=== PATIENT | female | born 1940 | race Caucasian/White ===

== ENCOUNTER → 2017-09-09 | Outpatient (CLI) | payer MEDICARE, OTHER ==
[~2017-09-09] MED LIST: ACIDOPHILUS1 EAC4 PO; ADULT LOW DOSE81 MG PO; ALDACTONE25 MG PO; ASPIRIN81 M2 PO; BACITRACIN 500U30 G1 TOP; CALCIUM 500 +1 EAC5 PO; CALCIUM 600 +1 EAC1 PO; CARVEDILOL12.5 MG PO; CELEXA20 MG PO; CHOLESTYRAMINE R5 GM PO; COLACE100 MG PO; COREG3.125 MG PO; EFFER-K 10 MEQ10 ME1 PO; ENOXAPARIN40 MG/0.1 SUBQ; ENTRESTO 97 MG1 EACH BUCCAL; ENTRESTO 97 MG1 EACH PO; FIRVANQ50 MG/1 ML PO; HYDROCODON-ACE1 EAC7 PO; IBUPROFEN 200200 M1 PO; KEFLEX500 M1 PO; KLOR-CON 1010 MEQ PO; LASIX 40 MG TAB40 M2 PO; LIDOPATCH1 EACH TOP; LISINOPRIL20 MG PO; MACROBID 100 M100 M1 PO; METFORMIN HCL500 MG PO; MOBIC15 MG PO; NORCO 10-325 T1 EACH PO; NOVOLOG100 UNIT/1 SUBQ; PANTOPRAZOLE SO40 M1 PO; PEPCID20 MG PO; ROPINIROLE HCL2 MG PO; TRAMADOL 50 MG50 MG PO; ZESTRIL10 MG PO; ZYRTEC-D TABLE1 EAC1 PO
[2017-09-09 11:15] LABS: CALCIUM 9.2 mg/dL (8.5-10.1); CREATININE 0.7 mg/dL (0.6-1.3); POTASSIUM 3.7 mmol/L (3.5-5.1)
== END ==
LOC: M.LAB 10:41
PROVIDERS: Internal Medicine Cardiovascular Disease
DX: I50.22 Chronic systolic (congestive) heart failure (principal); E78.5 Hyperlipidemia, unspecified; N18.9 Chronic kidney disease, unspecified

== ENCOUNTER → 2017-10-07 | Outpatient (CLI) | payer MEDICARE, OTHER ==
[2017-10-07 11:16] LABS: CALCIUM 8.9 mg/dL (8.5-10.1); CREATININE 1.2 mg/dL (0.6-1.3); POTASSIUM 3.9 mmol/L (3.5-5.1)
== END ==
LOC: M.LAB 10:39
PROVIDERS: Internal Medicine Cardiovascular Disease
DX: I50.22 Chronic systolic (congestive) heart failure (principal); N18.9 Chronic kidney disease, unspecified; E78.5 Hyperlipidemia, unspecified

== ENCOUNTER 2017-10-09 15:46 | Observation (INO) | payer MEDICARE, OTHER ==
[~2017-10-09] VITALS: Ht 157.5 cm; Wt 63.5 kg
[~2017-10-09 15:46] MED LIST changes: -ACIDOPHILUS1 EAC4 PO; -ADULT LOW DOSE81 MG PO; -CALCIUM 500 +1 EAC5 PO; -EFFER-K 10 MEQ10 ME1 PO; -ENTRESTO 97 MG1 EACH BUCCAL; -ENTRESTO 97 MG1 EACH PO; -FIRVANQ50 MG/1 ML PO; -HYDROCODON-ACE1 EAC7 PO; -KEFLEX500 M1 PO; -LIDOPATCH1 EACH TOP; -MACROBID 100 M100 M1 PO
[2017-10-09 15:49] VITALS: BP 177/72
[2017-10-09 17:01] LABS: ABSOLUTE EOSINOPHILS 0.2 thou/uL (0.0-0.7); ABSOLUTE LYMPHOCYTES 1.3 thou/uL (0.8-5.3); ABSOLUTE MONOCYTES 0.5 thou/uL (0.0-1.2); ABSOLUTE NEUTROPHILS 2.6 thou/uL (1.6-8.1); BASOPHILS 0.5 %; EOSINOPHILS 4.3 %; HEMATOCRIT 36.9 % (37.0-47.0); HEMOGLOBIN 12.3 gm/dL (12.0-15.0); LYMPHOCYTES 27.5 %; MCH 32.5 pg (26.0-34.0); MCHC 33.5 g/dL (28.0-37.0); MCV 97.1 fL (80.0-100.0); MONOCYTES 11.6 %; MPV 7.6 fl. (7.2-11.1); NUCLEATED RBCS 0 /100WBC; PLATELET COUNT* 165 thou/uL (150-400); POLYS 56.1 %; RDW-CV 12.6 % (10.5-14.5); WBC 4.6 thou/uL (4.0-11.0)
[2017-10-09 17:11] LABS: INR 1.1; PROTIME 10.3 Seconds (9.20-11.50)
[2017-10-09 17:12] LABS: ANION GAP 7 mmol/L (7-16); BUN 30 mg/dL (7-18); CALCIUM 9.3 mg/dL (8.5-10.1); CHLORIDE 103 mmol/L (98-107); CO2 31 mmol/L (21-32); CREATININE 1.1 mg/dL (0.6-1.3); GLUCOSE 121 mg/dL (70-99); POTASSIUM 4.1 mmol/L (3.5-5.1); SODIUM 141 mmol/L (136-145)
[2017-10-09 17:19] LABS: ALBUMIN 3.7 g/dL (3.4-5.0); ALKALINE PHOSPHATASE 102 U/L (46-116); SGOT 114 U/L (15-37); SGPT 53 U/L (30-65); TOTAL BILIRUBIN 0.9 mg/dL (<0.1-1.0); TOTAL PROTEIN 7.5 g/dL (6.4-8.2); TROPONIN-I LEVEL <0.06 ng/mL (<0.06)
[2017-10-09] MEDS ORDERED: ENTRESTO 97 MG1 EACH PO (17:42)
[2017-10-09 18:33] VITALS: BP 89/49
[2017-10-09 19:52] VITALS: BP 116/58
[2017-10-10] VITALS: BP 95/65
--- NOTE | 2017-10-10 02:39 | NUR ---
ASSUMED CARE OF PT AT 1900. PT IS ALERT AND ORIENTED. VSS. PERRLA. NIH IS 0. PT IS IN SINUS RYTHM ON THE TELEMETRY. PT IS RESTING COMFORTABLY IN BED. RESPIRATIONS ARE EVEN AND NONLABORED. WILL CONTINUE TO MONITOR PT.
[2017-10-10 04:32] VITALS: BP 122/62
[2017-10-10 05:25] LABS: ABSOLUTE EOSINOPHILS 0.2 thou/uL (0.0-0.7); ABSOLUTE MONOCYTES 0.4 thou/uL (0.0-1.2); ABSOLUTE NEUTROPHILS 1.6 thou/uL (1.6-8.1); BASOPHILS 0.6 %; EOSINOPHILS 5.4 %; HEMATOCRIT 32.9 % (37.0-47.0); HEMOGLOBIN 11.3 gm/dL (12.0-15.0); LYMPHOCYTES 31.4 %; MCH 33.3 pg (26.0-34.0); MCHC 34.3 g/dL (28.0-37.0); MCV 97.1 fL (80.0-100.0); MONOCYTES 12.8 %; MPV 7.7 fl. (7.2-11.1); NUCLEATED RBCS 0 /100WBC; PLATELET COUNT* 126 thou/uL (150-400); POLYS 49.8 %; RBC 3.39 mil/uL (4.20-5.00); RDW-CV 12.4 % (10.5-14.5); WBC 3.3 thou/uL (4.0-11.0)
[2017-10-10 05:38] LABS: CALCIUM 9.2 mg/dL (8.5-10.1)
[2017-10-10 06:01] LABS: CHOLESTEROL 133 mg/dL (<200); HDL CHOLESTEROL 32 mg/dL (>40); LDL CHOLESTEROL 70 mg/dL (<100); TC:HDL 4.2 Ratio (Not establshd); TRIGLYCERIDE 156 mg/dL (<150); VLDL 31 mg/dL (<40)
[2017-10-10 06:03] LABS: SERUM ASSESSMENT CLEAR
[2017-10-10 08:00] VITALS: BP 95/75
[2017-10-10] MEDS ORDERED: ENTRESTO 97 MG1 EACH BUCCAL (09:02)
[2017-10-10] MEDS ORDERED: LASIX 40 MG TAB40 M2 PO (09:03)
[2017-10-10] MEDS ORDERED: ALDACTONE25 MG PO (09:03)
--- NOTE | 2017-10-10 09:37 | NUR ---
VSS, ASSUMED CARE IN THE AM, ASSESSMENT PERFORMED AND CHARTED, FALL PRECAUTIONS IN PLACE AND CALL LIGHT IN REACH. PT IS A&O4 AND UP WITH STAND BY, PT IS TRACING SR ON THE MONITOR HER GOAL IS TO WORK WITH PT/OT AND SIT UP IN CHAIR, PT MIGHT D/C ON DAY OF CARE.
--- NOTE | 2017-10-10 11:57 | EKG ---
[place] [address] ELECTROCARDIOGRAM REPORT Name: ARACELI TOMPKINS Room: [address] ADM IN [facility]#: [id number] Admission: 10/09/17 Attend Phys: Jonathan Ma MD Discharge: Date of : 44 Report #: [id number] THIS REPORT FOR: //name// [facility] ED Test Date: 2017-10-09 Test Time: 16:52:06 Pat Name: ARACELI TOMPKINS Department: Room: [facility] Gender: F Tank Welder: : 1940 Requested By: Calvin Ferrer Order Number: [id number] MD: Ernie Houser Measurements Intervals [place] Rate: 77 P: 37 GA: 167 QRS: -42 QRSD: 124 T: 15 QT: 422 QTc: 478 Interpretive Statements Sinus rhythm lvh with repolarization left axis Compared to ECG 05/04/2017 19:43:05 Sinus tachycardia no longer present Electronically Signed On 10-10-2017 11:57:51 SAMPLE ROOM SUPERVISOR by Ernie Houser [email or web address] <ELECTRONICALLY SIGNED> By: Ernie Houser MD, [facility] 10/10/17 1157 1652 1652 Ernie Houser MD, [facility] /EPI
[2017-10-10 12:52] VITALS: BP 95/75
[2017-10-10 16:00] VITALS: BP 121/82
--- NOTE | 2017-10-10 18:11 | NUR ---
VSS, PT IS SLEEPING AND IS HARD TO WAKE, PT IS ON 5L NC AND HAS FALL PRECAUTIONS IN PLACE AND CALL LIGHT IN REACH, HOURLY ROUNDS COMPLETED, PT HAS NOT MET GOAL, PT WILL NOT WAKE UP FOR PT/OT, PT IS TRACING V-PACED ON THE MONITOR, WILL FOLLOW WITH PLAN OF CARE.
[2017-10-10 22:11] LABS: GLYCOHEMOGLOBIN (HGB A1C) 6.7 % (4.8-5.6)
[2017-12-18] MEDS ORDERED: KEFLEX500 M1 PO (16:15)
== END 2017-10-10 19:06 | disposition home or self-care (01) ==
LOC: M.ERS 15:46 → M.2W 16:53 → M.TBA-ER 16:53 → M.2W 16:53
PROVIDERS: Emergency Medicine; ADMIT Internal Medicine
DX: M62.81 Muscle weakness (generalized) (principal); M47.9 Spondylosis, unspecified; M48.061 Spinal stenosis, lumbar region without neurogenic claudication; E11.22 Type 2 diabetes mellitus with diabetic chronic kidney disease; I13.0 Hypertensive heart and chronic kidney disease with heart failure and stage 1 through stage 4 chronic kidney disease, or unspecified chronic kidney disease; N18.9 Chronic kidney disease, unspecified; I50.9 Heart failure, unspecified; I42.9 Cardiomyopathy, unspecified; G25.81 Restless legs syndrome; Z86.73 Personal history of transient ischemic attack (TIA), and cerebral infarction without residual deficits; Z85.3 Personal history of malignant neoplasm of breast

== ENCOUNTER → 2017-10-24 | Outpatient (CLI) | payer MEDICARE, OTHER ==
[~2017-10-24] MED LIST changes: +ACIDOPHILUS1 EAC4 PO; +ADULT LOW DOSE81 MG PO; +CALCIUM 500 +1 EAC5 PO; +EFFER-K 10 MEQ10 ME1 PO; +ENTRESTO 97 MG1 EACH BUCCAL; +ENTRESTO 97 MG1 EACH PO; +FIRVANQ50 MG/1 ML PO; +HYDROCODON-ACE1 EAC7 PO; +KEFLEX500 M1 PO; +LIDOPATCH1 EACH TOP; +MACROBID 100 M100 M1 PO
[2017-10-24 11:43] LABS: CALCIUM 9.2 mg/dL (8.5-10.1); CREATININE 0.7 mg/dL (0.6-1.3); POTASSIUM 4.1 mmol/L (3.5-5.1)
== END ==
LOC: M.LAB 11:22
PROVIDERS: Nurse Practitioner
DX: I13.0 Hypertensive heart and chronic kidney disease with heart failure and stage 1 through stage 4 chronic kidney disease, or unspecified chronic kidney disease (principal); E11.22 Type 2 diabetes mellitus with diabetic chronic kidney disease; I50.22 Chronic systolic (congestive) heart failure; N18.9 Chronic kidney disease, unspecified; G45.9 Transient cerebral ischemic attack, unspecified; E87.5 Hyperkalemia; J96.01 Acute respiratory failure with hypoxia; E44.1 Mild protein-calorie malnutrition; Z90.11 Acquired absence of right breast and nipple; Z90.49 Acquired absence of other specified parts of digestive tract; Z90.710 Acquired absence of both cervix and uterus

== ENCOUNTER → 2017-12-18 | Outpatient (CLI) | payer MEDICARE, OTHER ==
[~2017-12-18] VITALS: Ht 154.9 cm; Wt 57.6 kg
[2017-12-18 10:03] VITALS: BP 110/51
[2017-12-18 10:15] LABS: ABSOLUTE EOSINOPHILS 0.3 thou/uL (0.0-0.7); ABSOLUTE LYMPHOCYTES 0.9 thou/uL (0.8-5.3); ABSOLUTE MONOCYTES 0.6 thou/uL (0.0-1.2); ABSOLUTE NEUTROPHILS 2.7 thou/uL (1.6-8.1); BASOPHILS 0.7 %; HEMATOCRIT 36.5 % (37.0-47.0); HEMOGLOBIN 12.5 gm/dL (12.0-15.0); LYMPHOCYTES 19.3 %; MCHC 34.3 g/dL (28.0-37.0); MCV 93.2 fL (80.0-100.0); MONOCYTES 12.4 %; MPV 7.5 fl. (7.2-11.1); NUCLEATED RBCS 0 /100WBC; PLATELET COUNT* 146 thou/uL (150-400); POLYS 61.6 %; RBC 3.91 mil/uL (4.20-5.00); RDW-CV 13.2 % (10.5-14.5); WBC 4.5 thou/uL (4.0-11.0)
[2017-12-18 10:24] LABS: CALCIUM 9.2 mg/dL (8.5-10.1); CREATININE 0.9 mg/dL (0.6-1.3); POTASSIUM 4.3 mmol/L (3.5-5.1)
[2017-12-18 10:26] LABS: APTT 24.3 Seconds (25.0-31.3); PROTIME 9.7 Seconds (9.20-11.50)
[2017-12-18 10:28] LABS: ALBUMIN 3.2 g/dL (3.4-5.0); TOTAL PROTEIN 6.7 g/dL (6.4-8.2)
[2017-12-18 15:38] VITALS: BP 117/66
--- NOTE | 2018-01-07 18:31 | CARD ---
[address] [address] CARDIAC CATH REPORT Name: ARACELI TOMPKINS [id number] Admission: 12/18/17 Attend Phys: Harshil Shukla MD Discharge: Date of : 44 Report #: [id number] THIS REPORT FOR: //name// APPROVED REPORT Study performed: 12/18/2017 10:40:16 Patient Status: Out-Patient Room #: Exam: insertion of a dual-chamber ICD Indications: nonischemic cardiomyopathy Patient Info Last EF%: 35% Date: NYHA Heart Class: II Reason for implant: Primary prevention Intraoperative Conscious Sedation Sedation start time: 1228 Case end Time: 1422 Fentanyl 50.0 mcg Versed 2.0 mg Implanted Devices: Biotronik Iperia 7 DRT DF 4 pro-MRI, model number 603925, serial #[id number] Biotronik Solia S 53, model #058749, serial #[id number] Biotronik Plexa ProMRI S 65, model #683992, serial #[id number] Procedure After informed consent was obtained the patient was brought to the cardiac catheterization lab. The area of the left shoulder was prepped and draped in sterile fashion. Local anesthesia was achieved with 1% lidocaine. Next after an initial incision was made a device pocket was formed over the pectoralis muscle using (coronary and blunt dissection. Next the right vein was accessed using a micropuncture kit. Attempts to advance a safety J wire were unsuccessful. A peripheral injection of IV contrast showed the left subclavian vein to be occluded. The pocket was flushed with antibiotic solution. The deep tissues were closed with interrupted stitches of 2-0 Vicryl. The skin incision was then closed with a single subcuticular stitch of 4-0 Vicryl. Several Steri-Strips were placed across the incision. A sterile Telfa dressing was then covered with a Tegaderm. The area of the right shoulder was prepped and draped in sterile fashion. Local anesthesia was achieved with 1% [place] [address] CARDIAC CATH REPORT Name: TOMPKINSARACELI Room: [facility]#: [id number] Admission: 12/18/17 Attend Phys: Harshil Shukla MD Discharge: Date of : 44 Report #: [id number] subclavian vein was then accessed using a micropuncture kit. Ultimately a safety J guidewire was advanced to the area of the right atrium under fluoroscopic guidance. The guidewire was then externally fixed using a Doris forcep. The micropuncture kit was utilized a second time to access the right subclavian vein. A second safety J guidewire was advanced to the area of the right atrium under fluoroscopic guidance. Next a 7 [place] tear-away introducer was advanced over the guidewire. The dilator and guidewire were removed and an RV pacing ICD lead advanced to the right ventricular apex under fluoroscopic guidance. The tear-away introducer was then removed. The lead was actively fixed. Thresholds were checked and deemed to be satisfactory. Next a 7 [place] tear-away introducer was advanced over the remaining guidewire. The dilator and guidewire were removed as an atrial lead was advanced to a secure position within the right atrial appendage. The tear-away introducer was then removed. The lead was actively fixed. Thresholds were checked and deemed to be satisfactory. Next after adequate slack was assured and the atrial and ventricular leads. The leads were secured within the device pocket using the designated cuffs and interrupted stitches of 2-0 silk suture. The device pocket was flushed with antibiotic solution. Next a dual-chamber pacing ICD generator was attached to the atrial and pacing ICD RV lead. The generator and redundant lead were then placed within the device pocket. The deep tissues were then closed using interrupted stitches of 2-0 Vicryl. The skin incision was then closed with a single subcuticular stitch of 4-0 Vicryl. Several Steri-Strips were placed across the incision. A sterile Telfa dressing was then covered with a Tegaderm. Patient tolerated procedure well without complication. Complications The patient tolerated the procedure well and there were no complications associated with the procedure. Findings Specimens Removed: No Estimated Blood Loss: 0 mL The sensed P wave was 4.0 mV. The sensed R-wave was 23.10 mV. The right atrial pacing impedance was 565 ohms. The right ventricular lead pacing and impedance was 550 ohms. The right atrial pacing threshold was 0.8 V at 0.40 ms. The right ventricular pacing threshold was 0.7 V at 0.40 ms. The pacing mode was DDD with a lower rate of 50 bpm and an upper tracking rate of 130 bpm. The VF detection rate was 250 bpm. Slow VT detection rate was 154 [facility] [address] [place] [address] CARDIAC CATH REPORT Name: ARACELI TOMPKINS Room: [facility]#: [id number] Admission: 12/18/17 Attend Phys: Harshil Shukla MD Discharge: Date of : 44 Report #: [id number]. The fast VT detection rate was 176 bpm. VT therapy was anti-tachycardia pacing times one followed by 40 J shock 8. The slow VT therapy was monitor only. The fast VT therapy was and I tach pacing 6 followed by 40 J shock times 8. Conclusion 1. Nonischemic cardiomyopathy. 2. Successful implantation of a dual-chamber pacing ICD for primary prevention. Recommendations 1. Follow-up site check in one week. 2. Follow-up in office interrogation as scheduled. <ELECTRONICALLY SIGNED> By: Harshil Shukla MD, FACC 01/07/181830 30 30Michaejoseph Shukla MD, FACC /INF
== END | disposition home or self-care (01) ==
LOC: M.CL 09:36
PROVIDERS: Internal Medicine Cardiovascular Disease
DX: I42.8 Other cardiomyopathies (principal); B19.20 Unspecified viral hepatitis C without hepatic coma; Z85.3 Personal history of malignant neoplasm of breast; Z90.49 Acquired absence of other specified parts of digestive tract; Z98.890 Other specified postprocedural states; Z90.710 Acquired absence of both cervix and uterus; I50.9 Heart failure, unspecified

== ENCOUNTER → 2018-03-12 | Outpatient (CLI) | payer MEDICARE, OTHER | LOC: M.ULTRA 12:38 | DX: M71.21 Synovial cyst of popliteal space [Baker], right knee (principal); M79.89 Other specified soft tissue disorders; I50.22 Chronic systolic (congestive) heart failure; I42.8 Other cardiomyopathies; E78.5 Hyperlipidemia, unspecified; E11.9 Type 2 diabetes mellitus without complications; M79.604 Pain in right leg ==

== ENCOUNTER → 2018-03-31 | Outpatient (CLI) | payer MEDICARE, OTHER | LOC: M.RAD 14:44 | DX: M47.816 Spondylosis without myelopathy or radiculopathy, lumbar region (principal); M47.814 Spondylosis without myelopathy or radiculopathy, thoracic region; M16.0 Bilateral primary osteoarthritis of hip; M85.88 Other specified disorders of bone density and structure, other site ==

== ENCOUNTER 2018-04-06 16:18 | Inpatient (IN) | payer MEDICARE, OTHER ==
[~2018-04-06] VITALS: Ht 165.1 cm; Wt 62.0 kg
[~2018-04-06 16:18] MED LIST changes: -ACIDOPHILUS1 EAC4 PO; -ADULT LOW DOSE81 MG PO; -CALCIUM 500 +1 EAC5 PO; -EFFER-K 10 MEQ10 ME1 PO; -FIRVANQ50 MG/1 ML PO; -HYDROCODON-ACE1 EAC7 PO; -LIDOPATCH1 EACH TOP; -MACROBID 100 M100 M1 PO
[2018-04-06 16:19] VITALS: BP 96/70
[2018-04-06] MEDS ORDERED: LASIX 40 MG TAB40 M2 PO (16:40)
[2018-04-06] MEDS ORDERED: EFFER-K 10 MEQ10 ME1 PO (16:41)
[2018-04-06] MEDS ORDERED: CALCIUM 500 +1 EAC5 PO (16:42)
[2018-04-06 16:43] LABS: URINE BLOOD 1+ (Negative); URINE CLARITY CLOUDY; URINE COLOR YELLOW; URINE GLUCOSE-RANDOM TRACE (Negative); URINE KETONES NEGATIVE (Negative); URINE NITRITE-REFLEX NEGATIVE (Negative); URINE PROTEIN 2+ (Negative); URINE SPECIFIC GRAVITY >= 1.030 (1.005-1.030); URINE UROBILINOGEN >= 8.0 E.U./dl (0.2-1.0)
[2018-04-06] MEDS ORDERED: HYDROCODON-ACE1 EAC7 PO (16:45)
[2018-04-06 16:50] LABS: ICTOTEST (BILI CONFIRMATORY) Positive (Negative); URINE BILIRUBIN 2+ (Negative); URINE LEUKOCYTES-REFLEX 2+ (Negative)
[2018-04-06 16:51] LABS: HYALINE CASTS 0-3 Few /LPF (None Seen); SQUAMOUS >10 Many /LPF (0-3)
[2018-04-06 16:52] LABS: BACTERIA-REFLEX >30 Many /HPF (None Seen); MUCUS None Seen strn/LPF (None Seen); URINE RBC 0-2 Rare /HPF (0-2); URINE WBC-REFLEX >25 Many /HPF (0-5); WBC CLUMPS Few (None Seen)
[2018-04-06 16:53] LABS: CRYSTALS None Seen /LPF (None Seen)
[2018-04-06 17:14] LABS: HEMATOCRIT 35.8 % (37.0-47.0); HEMOGLOBIN 12.2 gm/dL (12.0-15.0); MCH 30.8 pg (26.0-34.0); MCV 90.5 fL (80.0-100.0); MPV 9.6 fl. (7.2-11.1); NUCLEATED RBCS 0 /100WBC; PLATELET COUNT* 56 thou/uL (150-400); RBC 3.96 mil/uL (4.20-5.00); RDW-CV 13.5 % (10.5-14.5)
[2018-04-06 17:22] LABS: ANION GAP 10 mmol/L (7-16); BUN 27 mg/dL (7-18); CALCIUM 8.6 mg/dL (8.5-10.1); CHLORIDE 98 mmol/L (98-107); CO2 27 mmol/L (21-32); CREATININE 1.2 mg/dL (0.6-1.3); GLUCOSE 147 mg/dL (70-99); POTASSIUM 3.1 mmol/L (3.5-5.1); SODIUM 135 mmol/L (136-145)
[2018-04-06 17:36] LABS: ALBUMIN 2.7 g/dL (3.4-5.0); ALKALINE PHOSPHATASE 160 U/L (46-116); SGOT 75 U/L (15-37); SGPT 39 U/L (30-65); TOTAL BILIRUBIN 2.7 mg/dL (<0.1-1.0); TOTAL PROTEIN 6.3 g/dL (6.4-8.2); TROPONIN-I LEVEL <0.06 ng/mL (<0.06)
[2018-04-06 17:45] LABS: ABSOLUTE LYMPHOCYTES 0.3 thou/uL (0.8-5.3); ABSOLUTE MONOCYTES 0.1 thou/uL (0.0-1.2); ABSOLUTE NEUTROPHILS 5.6 thou/uL (1.6-8.1)
[2018-04-06 17:46] LABS: OVALOCYTES Occasional; PLATELET ESTIMATE DECREASED
[2018-04-06 19:50] VITALS: BP 99/52
[2018-04-06 20:00] VITALS: BP 147/70
[2018-04-07] VITALS: BP 118/63
[2018-04-07 04:00] VITALS: BP 100/51
[2018-04-07 08:00] VITALS: BP 104/57
[2018-04-07 13:54] VITALS: BP 127/59
[2018-04-07 16:51] VITALS: BP 104/59
--- NOTE | 2018-04-07 17:25 | EKG ---
[place] [address] ELECTROCARDIOGRAM REPORT Name: ARACELI TOMPKINS Room: [address] ADM IN .R.#: [id number] Admission: 04/06/18 Attend Phys: Selene Larose MD Discharge: Date of : 44 Report #: [id number] THIS REPORT FOR: //name// [facility] ED Test Date: 2018-04-06 Test Time: 16:27:50 Pat Name: ARACELI TOMPKINS Department: Room: [facility] Gender: F Flow Machine Operator: Yordan SHEETS : 1940 Requested By: Celia Ahumada Order Number: [id number] MD: Harshil Shukla Measurements Intervals [place] Rate: 78 P: 15 UT: 147 QRS: -45 QRSD: 126 T: -5 QT: 404 QTc: 461 Interpretive Statements Sinus rhythm Left bundle branch block Compared to ECG 10/09/2017 16:52:06 Left bundle-branch block now present Left ventricular hypertrophy no longer present Electronically Signed On 04-07-2018 17:25:15 CDT by Harshil Shukla [email or web address] <ELECTRONICALLY SIGNED> By: Harshil Shukla MD, FACC 04/07/18 1725 1627 1627 Harshil Shukla MD, [facility] /EPI
[2018-04-07 20:00] VITALS: BP 122/67
[2018-04-08] VITALS: BP 168/73
[2018-04-08 04:00] VITALS: BP 109/38
[2018-04-08 05:44] LABS: HEMATOCRIT 32.6 % (37.0-47.0); MCH 30.7 pg (26.0-34.0); MCHC 33.7 g/dL (28.0-37.0); MCV 91.2 fL (80.0-100.0); MPV 9.8 fl. (7.2-11.1); RBC 3.57 mil/uL (4.20-5.00); RDW-CV 13.4 % (10.5-14.5); WBC 6.2 thou/uL (4.0-11.0)
[2018-04-08 06:35] LABS: CALCIUM 8.2 mg/dL (8.5-10.1); CREATININE 0.9 mg/dL (0.6-1.3); MAGNESIUM 1.6 mg/dL (1.8-2.4)
[2018-04-08 08:00] VITALS: BP 100/51
[2018-04-08 12:18] LABS: HEMATOCRIT 31.7 % (37.0-47.0); HEMOGLOBIN 10.7 gm/dL (12.0-15.0); MCH 30.5 pg (26.0-34.0); MCHC 33.9 g/dL (28.0-37.0); MPV 9.6 fl. (7.2-11.1); RBC 3.52 mil/uL (4.20-5.00); RDW-CV 13.7 % (10.5-14.5); WBC 8.2 thou/uL (4.0-11.0)
[2018-04-08 15:14] VITALS: BP 106/54
[2018-04-08 19:50] VITALS: BP 112/65
[2018-04-09 05:17] LABS: HEMATOCRIT 31.4 % (37.0-47.0); HEMOGLOBIN 10.5 gm/dL (12.0-15.0); MCH 30.2 pg (26.0-34.0); MCHC 33.4 g/dL (28.0-37.0); MCV 90.4 fL (80.0-100.0); MPV 10.5 fl. (7.2-11.1); RBC 3.48 mil/uL (4.20-5.00); RDW-CV 13.5 % (10.5-14.5); WBC 8.1 thou/uL (4.0-11.0)
[2018-04-09 05:40] LABS: ALBUMIN 2.3 g/dL (3.4-5.0); CALCIUM 8.1 mg/dL (8.5-10.1); CREATININE 0.7 mg/dL (0.6-1.3); MAGNESIUM 1.8 mg/dL (1.8-2.4); TOTAL BILIRUBIN 1.1 mg/dL (<0.1-1.0); TOTAL PROTEIN 5.1 g/dL (6.4-8.2)
[2018-04-09 07:45] VITALS: BP 116/64
[2018-04-09 10:04] LABS: URINE BILIRUBIN NEGATIVE (Negative); URINE BLOOD NEGATIVE (Negative); URINE CLARITY CLEAR; URINE COLOR YELLOW; URINE GLUCOSE-RANDOM 2+ (Negative); URINE KETONES 1+ (Negative); URINE LEUKOCYTES-REFLEX NEGATIVE (Negative); URINE NITRITE-REFLEX NEGATIVE (Negative); URINE PROTEIN TRACE (Negative); URINE SPECIFIC GRAVITY 1.025 (1.005-1.030); URINE UROBILINOGEN 0.2 E.U./dl (0.2-1.0)
[2018-04-09 16:34] VITALS: BP 130/67
[2018-04-09 21:00] VITALS: BP 142/88
[2018-04-10 04:32] LABS: HEMATOCRIT 30.6 % (37.0-47.0); HEMOGLOBIN 10.2 gm/dL (12.0-15.0); MCH 30.1 pg (26.0-34.0); MCHC 33.4 g/dL (28.0-37.0); MCV 90.3 fL (80.0-100.0); MPV 9.3 fl. (7.2-11.1); NUCLEATED RBCS 0 /100WBC; RBC 3.39 mil/uL (4.20-5.00); RDW-CV 13.7 % (10.5-14.5); WBC 7.7 thou/uL (4.0-11.0)
[2018-04-10 04:40] LABS: PLATELET COUNT* 45 thou/uL (150-400)
[2018-04-10 04:44] LABS: CALCIUM 7.8 mg/dL (8.5-10.1); CREATININE 0.6 mg/dL (0.6-1.3); MAGNESIUM 1.5 mg/dL (1.8-2.4); POTASSIUM 3.5 mmol/L (3.5-5.1)
[2018-04-10 07:22] LABS: ABSOLUTE EOSINOPHILS 0.2 thou/uL (0.0-0.7); ABSOLUTE LYMPHOCYTES 0.8 thou/uL (0.8-5.3); ABSOLUTE NEUTROPHILS 6.8 thou/uL (1.6-8.1); PLATELET ESTIMATE DECREASED
[2018-04-10 08:00] VITALS: BP 141/92
[2018-04-10 20:00] VITALS: BP 120/68
[2018-04-11] VITALS: BP 134/67
[2018-04-11 04:44] LABS: HEMATOCRIT 28.6 % (37.0-47.0); HEMOGLOBIN 9.7 gm/dL (12.0-15.0); MCH 30.2 pg (26.0-34.0); MCHC 33.9 g/dL (28.0-37.0); MCV 89.1 fL (80.0-100.0); MPV 9.1 fl. (7.2-11.1); RBC 3.21 mil/uL (4.20-5.00); RDW-CV 13.5 % (10.5-14.5); WBC 6.2 thou/uL (4.0-11.0)
[2018-04-11 05:26] LABS: CREATININE 0.6 mg/dL (0.6-1.3); MAGNESIUM 1.6 mg/dL (1.8-2.4); POTASSIUM 3.4 mmol/L (3.5-5.1)
[2018-04-11 08:00] VITALS: BP 146/72
[2018-04-11 15:44] VITALS: BP 143/69
[2018-04-11 16:43] LABS: MAGNESIUM 1.7 mg/dL (1.8-2.4); POTASSIUM 4.9 mmol/L (3.5-5.1)
[2018-04-11 22:00] VITALS: BP 135/85
[2018-04-12 08:00] VITALS: BP 152/91
[2018-04-12 16:05] VITALS: BP 140/80
[2018-04-12 19:30] VITALS: BP 143/82
[2018-04-13 05:29] LABS: HEMATOCRIT 29.8 % (37.0-47.0); MCH 30.5 pg (26.0-34.0); MCHC 33.6 g/dL (28.0-37.0); MCV 90.7 fL (80.0-100.0); MPV 9.8 fl. (7.2-11.1); RBC 3.28 mil/uL (4.20-5.00); RDW-CV 13.7 % (10.5-14.5); WBC 7.9 thou/uL (4.0-11.0)
[2018-04-13 05:35] LABS: INR 1.1; PROTIME 10.6 Seconds (9.20-11.50)
[2018-04-13 05:44] LABS: ALBUMIN 2.1 g/dL (3.4-5.0); CALCIUM 7.9 mg/dL (8.5-10.1); CREATININE 0.6 mg/dL (0.6-1.3); POTASSIUM 4.5 mmol/L (3.5-5.1); TOTAL BILIRUBIN 1.1 mg/dL (<0.1-1.0); TOTAL PROTEIN 5.1 g/dL (6.4-8.2)
[2018-04-13 08:36] VITALS: BP 151/93
[2018-04-13 16:26] VITALS: BP 140/100
[2018-04-13 21:00] VITALS: BP 108/60
[2018-04-13 21:44] LABS: URINE BILIRUBIN NEGATIVE (Negative); URINE BLOOD NEGATIVE (Negative); URINE CLARITY CLEAR; URINE COLOR YELLOW; URINE GLUCOSE-RANDOM 2+ (Negative); URINE KETONES 1+ (Negative); URINE LEUKOCYTES-REFLEX NEGATIVE (Negative); URINE NITRITE-REFLEX NEGATIVE (Negative); URINE PROTEIN NEGATIVE (Negative); URINE SPECIFIC GRAVITY 1.025 (1.005-1.030); URINE UROBILINOGEN 0.2 E.U./dl (0.2-1.0)
[2018-04-14] MEDS ORDERED: FIRVANQ50 MG/1 ML PO (08:38)
[2018-04-14] MEDS ORDERED: ADULT LOW DOSE81 MG PO (08:38)
[2018-04-14] MEDS ORDERED: LIDOPATCH1 EACH TOP (08:38)
[2018-04-14] MEDS ORDERED: MACROBID 100 M100 M1 PO (08:38)
[2018-04-14] MEDS ORDERED: HYDROCODON-ACE1 EAC7 PO (08:38)
[2018-04-14] MEDS ORDERED: ACIDOPHILUS1 EAC4 PO (08:38)
[2018-04-14 08:45] VITALS: BP 147/73
[2018-04-14 15:27] VITALS: BP 123/62
== END 2018-04-14 17:48 | DRG 871 ==
LOC: M.ERS 16:18 → M.2W 18:14 → M.ORTHSURG 18:14 → M.TBA-ER 18:14 → M.2W 20:10 → M.ORTHSURG 04-08 18:56
PROVIDERS: Nurse Practitioner Family; Radiology Diagnostic Radiology; ADMIT Internal Medicine
DX: A41.9 Sepsis, unspecified organism (principal); G92 Toxic encephalopathy; N39.0 Urinary tract infection, site not specified; Z94.81 Bone marrow transplant status; A04.72 Enterocolitis due to Clostridium difficile, not specified as recurrent; B96.20 Unspecified Escherichia coli [E. coli] as the cause of diseases classified elsewhere; I50.9 Heart failure, unspecified; B19.20 Unspecified viral hepatitis C without hepatic coma; D64.9 Anemia, unspecified; D69.6 Thrombocytopenia, unspecified; Z85.3 Personal history of malignant neoplasm of breast; Z90.49 Acquired absence of other specified parts of digestive tract; Z90.710 Acquired absence of both cervix and uterus; Z95.810 Presence of automatic (implantable) cardiac defibrillator; Z87.81 Personal history of (healed) traumatic fracture; Z79.899 Other long term (current) drug therapy; Z88.2 Allergy status to sulfonamides; Z88.8 Allergy status to other drugs, medicaments and biological substances; Z82.49 Family history of ischemic heart disease and other diseases of the circulatory system

== ENCOUNTER 2018-04-14 15:40 | Inpatient (IN) | payer MEDICARE, OTHER ==
[~2018-04-14] VITALS: Ht 165.1 cm; Wt 64.7 kg
[~2018-04-14 15:40] MED LIST changes: +ACIDOPHILUS1 EAC4 PO; +ADULT LOW DOSE81 MG PO; +CALCIUM 500 +1 EAC5 PO; +EFFER-K 10 MEQ10 ME1 PO; +FIRVANQ50 MG/1 ML PO; +HYDROCODON-ACE1 EAC7 PO; +LIDOPATCH1 EACH TOP; +MACROBID 100 M100 M1 PO
[2018-04-14 18:12] VITALS: BP 121/61
--- NOTE | 2018-04-14 18:59 | NUR ---
PT. ARRIVED AT 1750 FROM [facility]INT SPINE UNIT TO ROOM 320 W. ORIENTED TO REHAB UNIT AND ROUTINE USE OF CALL LIGHT FOR ASSISTANCE. ALERT AND ORIENTED BUT FORGETFULL AT TIMES. HX OF L1 COMPRESSION FX FROM FALL AT HOME WAS TO HAVE KYPHOPLASTY BUT HAS HAD BACTUREMIA UTI HX ALSO MENTAL STATUS CHANGES WHEN ON TRAMADOL VICODIN AFTER FALL. IN ISOLATION FOR C DIFF ON ORAL VANCOMYCIN. BED CHAIR ALARM FOR PT. SAFETY. SKIN INTACT C/D SOME BRUISING. HAS INTERNAL DEFIBRILLATOR/PACEMAKER. RT. CHEST SINCE 11/2017 HX OF CHF.
[2018-04-14 22:00] VITALS: BP 140/70
--- NOTE | 2018-04-15 01:11 | NUR ---
ASSUMED CARE @ 1944-04/14-FRIDAY.APPEARS SLEEPING IN BED ON HER BACK.WANTS HOB-FLAT.ISOLATION OBSERVED.BED ALARM PUT ON @ 1944.AWAKE @ 2049.WANTS TO TAKE MEDS W/ HOB FLAT.SIPS H20 SIDE OF MOUTH.WHEN HOB UP-PAIN RADIATES FROM BACK TO ABDOMEN.COMPRESSION FX L1.SEE PAIN MANAGEMENT @ 2133.ON HOURLY ROUNDS.
[2018-04-15 04:26] LABS: CALCIUM 7.8 mg/dL (8.5-10.1); CREATININE 0.7 mg/dL (0.6-1.3); POTASSIUM 3.8 mmol/L (3.5-5.1)
[2018-04-15 04:29] LABS: HEMATOCRIT 26.9 % (37.0-47.0); HEMOGLOBIN 9.1 gm/dL (12.0-15.0); MCH 30.3 pg (26.0-34.0); MCHC 33.8 g/dL (28.0-37.0); MCV 89.8 fL (80.0-100.0); MPV 9.3 fl. (7.2-11.1); RDW-CV 13.5 % (10.5-14.5); WBC 7.4 thou/uL (4.0-11.0)
--- NOTE | 2018-04-15 05:39 | NUR ---
SLEEPING SINCE 1944.REFUSED HS SNACK.HEELS OFF BED .AWAKENED BY LAB @ 3925. ENCOURAGED TO USE BSC @ 0345.ASSISTED TO BSC.VOIDED.BUT ALREADY INC.URINE X1. PATIENT CLAIMS WAS NOT AWARE THAT SHE WAS WET W/ URINE.C/O BEING TIRED. WEI CARE GIVEN.PJ PANTS REMOVED.HOSPITAL GOWN PUT ON.FAMILY TO BRING CLOTHES TODAY 04/15-FRI.URINE ACCIDENT X1.USED BSC X1 ONLY.SEE 2ND PAIN MANAGEMENT @ 1819.
[2018-04-15 08:30] VITALS: BP 158/88
--- NOTE | 2018-04-15 10:23 | NUR ---
Nutrition: Consult for wt loss. Wt hx per MILI: 157# usual wt, then in 2017 lost wt. Ranges 132-140# since May 2017. No recent wt loss. Current wt: 142#. +BM yday. H/o breast cancer, DM, CHF, Hep C. BG 183, alb 2.1, prealb 5.8. Per RN, pt is a picky eater and her daughter order her meals for her. She does eat well though, good appetite. Low risk. Will follow weekly.
--- NOTE | 2018-04-15 13:53 | NUR ---
SW met with pt to complete initial assessment, introduce, self, and SW role on rehab unit. Pt said that she remembered being on inpt rehab unit last year. Pt lives at home alone and has family support as needed. Pt family could be available to provide 24/7 care for a while at dc if needed. Pt has a walker at home and has hx with [facility]. SW reviewed team conference summary with pt and plan for pt to remain on rehab unit at least another week with team to reassess pt length of stay during team conference next Friday. Pt in agreement with plan. SW to continue to follow to assist with safe dc planning.
--- NOTE | 2018-04-15 18:05 | NUR ---
PT HAS WORKED WITH THERAPIES BUT CONTINUES TO HAVE SEVERE RT.LOWER BACK AND SIDE PAIN WHEN TRIES TO COME TO SITTING EITHER WITH USE OF BED OR ASSISTANCE TO SIDE OF BED. PTN TYLENOL GIVEN WITH FAIR EFFECT FOR SHORT PERIOD OF TIME. PAIN IS LESS WHEN AMBULATING THEN WHEN STANDING FOR LONG TIMES. PT IS ALERT AND ORIENTATED AND HAS BEEN CONTINENT OF B+B AND HAS HAD 1 BM THIS AM WITH SMALL AMOUNT OF LOOSE BROWN BM. PT DENIES NAUSEA. PT HAS VISITED WITH FAMILY AND GRANDSON THIS EVENING. PT PROGRESSES TOWARDS GOALS WITH PAIN BARRIER. HOURLY ROUNDING CONTINUES.
[2018-04-15 19:45] VITALS: BP 105/57
[2018-04-15 20:52] VITALS: BP 118/61
--- NOTE | 2018-04-16 01:23 | NUR ---
ASSUMED CARE @ 1919-04/15-FRI.AWAKE IN BED W/ HOB UP 45 DEGREES.COLOR-PALE. WATCHING BASEBALL GAME.ISOLATION OBSERVED.BED ALARM ALREADY ON @ 1919.BP @ 1944-/57.BP RE-CHECKED @ .BOTH COREG & ENTRESTO GIVEN.SEE PAIN MANAGEMENT @ 2047.NO BP RIGHT ARM OBSERVED.S/P RIGHT MASTECTOMY.PULL UPS OFF @ HS.HAD MOD,SOFT UNFORMED BM @ 2103 PER BSC AND HAD SMALL AMOUNT DARK, RED RECTAL BLEEDING.HAS EXTERNAL HEMMORHOIDS.HEELS OFF BED @ 2114.ON HOURLY ROUNDS.
--- NOTE | 2018-04-16 05:20 | NUR ---
SLEEPING SINCE 2199.SNORING @ 2299.USED BSC X1 ONLY BEFORE HS @ 2103.VOIDED & HAD MOD BM.TOOK ALL DOTTY.SHAKE & ICED TEA HS SNACKS.
[2018-04-16 09:30] VITALS: BP 127/74
--- NOTE | 2018-04-16 17:05 | NUR ---
PT HAS PARTICIPATED WITH THERAPIES AND HAS RESTED IN BED THIS AFTERNOON. PT WAS GIVEN PLAIN TYLENOL THIS AM WITH POOR EFFECT. PT THEN AGREED TO 1 HYDROCODONE BEFORE LUNCH AND XANAX WITH BETTER EFFECT FOR PAIN RELIEF. PT HAS EATEN LUNCH IN DINNINGROOM AND IS ENCOURAGED TO HAVE GOOD INTAKE. PT REMAINS ALERT AND ORIENTATED. PT HAS BEEN CONTINENT OF B+B.HOURLY ROUNDING CONTINUES
[2018-04-16 20:00] VITALS: BP 79/47
--- NOTE | 2018-04-17 05:00 | NUR ---
ASSUMED PATIENT CARE AT 1900. PATIENT ALERT AND ORIENTED TIMES FOUR. TRANSFERED FROM W/C TO BED WITH MIN ASSISST OF ONE AND GAIT BELT. ASSISTANT HVAC MECHANIC COMPLETED DOCUMENTED. ABLE TO USE CALL LIGHT AND EXPRESS NEEDS APPROPRIATELY. DOES REQUIRE MINIMAL REORIENTATION ON WAKING. CLOTHING MANAGEMENT COMPLETED WITH A MIN ASSISST OF ONE FOR BOTH LOWER AND UPPER BODY. HOURLY ROUNDING COMPLETED CHARTED.
[2018-04-17 07:38] VITALS: BP 109/63
--- NOTE | 2018-04-17 15:21 | NUR ---
PATIENT RESTING IN BED THIS SHIFT REPORTING PAIN IN LOWER BACK. PATIENT WORKING WITH THEARPY. PATIENT NOT EATING MUCH OF MEALS THIS SHIFT. BED IN LOW AND LOCKED POSITION. CALL LIGHT WITHIN REACH. PATIENT ON ROOM AIR. WILL CONTINUE TO MONITOR THIS SHIFT.
[2018-04-17 20:00] VITALS: BP 83/45
--- NOTE | 2018-04-18 02:10 | NUR ---
ASSUMED CARE AT 1930. ON C DIFF ISOLATION. PATIENT RESTING IN RECLINER UNTIL AROUND 1999. REFUSED TO CHANGE OUT OF CLOTHES FROM DAY. TURNS SELF. HELD COREG AND ENTRESTO DUE TO LOW BLOOD PRESSURE. TAKES PO VANCO WITH APPLE JUICE. UP WITH ONE, GAIT BELT, WALKER. STAND PIVOT FROM CHAIR TO BED. C/O PAIN WHEN MOVED. SLEEPS ON RIGHT SIDE ONLY. HOURLY ROUNDS CONTINUE. BED ALARM ON. CALL LITE IN REACH.
--- NOTE | 2018-04-18 05:22 | NUR ---
SLEPT MOST OF THE SHIFT. AWAKENED FOR MEDS, THEN RETURNED TO SLEEP. TURNS SELF. NO C/O PAIN. HOURLY ROUNDS CONTINUE. BED ALARM ON. CALL LITE IN REACH.
[2018-04-18 07:53] VITALS: BP 99/59
[2018-04-18 09:30] VITALS: BP 129/75
--- NOTE | 2018-04-18 09:45 | NUR ---
PATIENT STATING SHE IS FEELING SHORT OF AIR THIS MORNING. BP BETTER AT THIS TIME THAN EARLY THIS AM. PATIENT WITH AUDIBLE WHEEZING NOTED. O2 SAT ON ROOM AIR 95-98%. PAGED DR ROJAS TO UPDATE ON PATIENT STATUS. WILL CONTINUE WITH PLAN OF CARE.
--- NOTE | 2018-04-18 18:17 | NUR ---
PATIENT HAS BEEN A/O X 4 THIS SHIFT, SLIGHTLY FORGETFUL AT TIMES. MEDICATED FOR BACK PAIN WITH LIDODERM PATCHES, SCHEDULED IBUPROFEN AND PRN TYLENOL WITH PARTIAL RELIEF. PATIENT DROWSY THROUGHOUT THE SHIFT. SLEPT IN NAPS AFTER WORKING WITH THERAPIES. MUCH ENCOURAGEMENT NEEDED AT TIMES TO PARTICIPATE WITH THERAPIES. APPETITE POOR, ENOURAGMENT GIVEN TO EAT FOODS PATIENT LIKES. ASSISTED TO BSC WITH SBA AND GAITBELT, VOIDS LARGE AMOUNTS OF DARK HAM URINE. NO STOOLS THIS SHIFT. PATIENT HAD EPISODE OF WHEEZING THIS AM, DR ROJAS NOTIFIED AND ORDERS NOTED. PATIENT NEEDS ASSIST WITH CLOTHING MANAGMENT, BUT ABLE TO PERFORM OWN WEI-CARE. PATIENT'S DAUGHTER HERE TO VISIT THIS AM AND THIS EVENING. BED AND CHAIR ALARMS UTILIZED. HOURLY ROUNDING MAINTAINED. CALL LIGHT WITHIN REACH. WILL CONTINUE WITH PLAN OF CARE.
[2018-04-18 20:56] VITALS: BP 116/63
--- NOTE | 2018-04-18 22:08 | NUR ---
ASSUMED CARE AT 1930. PATIENT RESTING IN BED. TAKES PILLS A COUPLE AT A TIME WITH WATER. BP 116/63, ALL MEDS GIVEN, SEE OCT. NO C/O WHEEZING OR SOA. IBUPROFEN SCHEDULED AT HS WITH GOOD RELIEF. DOES NOT APPEAR ANXIOUS. FLUIDS ENCOURAGED WHILE TAKING MEDS. 1400 DOSE OF NEUROTIN HELD BY DAY SHIFT. TOOK HS NEUROTIN, BUT THINKS SHE WANTS TO HOLD OFF ON THE 0600 DOSE SINCE SHE IS NOT GETTING THERAPY TOMORROW. MORE ALERT OVERALL THAN YESTERDAY. DECLINED HS SNACK. HOURLY ROUNDS CONTINUE. BED ALARM ON. CALL LITE IN REACH.
--- NOTE | 2018-04-19 05:15 | NUR ---
SLEPT MOST OF THE SHIFT. ASSISTED WITH TURNS. NO C/O PAIN. HOURLY ROUNDS CONTINUE. BED ALARM ON. CALL LITE IN REACH.
[2018-04-19 09:21] VITALS: BP 114/60
[2018-04-19 09:30] VITALS: BP 114/60
--- NOTE | 2018-04-19 10:57 | NUR ---
PATIENT COMPLAINING OF RIGHT LOWER ABDOMINAL PAIN WHEN TRYING TO TRANSFER FROM LYING TO SITTING POSITION. PATIENT SCREAMING OUT IN PAIN, STATES NOT HAVING PAIN WHEN LYING DOWN. PHYSICIAN PAGED TO UPDATE AND DAUGHTER AT BEDSIDE.
--- NOTE | 2018-04-19 11:42 | NUR ---
UPDATED DAUGHTER AND PATIENT ON NEW ORDERS FOR CAT SCAN OF ABDOMEN AND NEED FOR IV FOR TEST. PATIENT AND DAUGHTER AGREEABLE, PATIENT TO DRINK CONTRAST. WILL CONTINUE WITH PLAN OF CARE.
[2018-04-19 12:45] VITALS: BP 123/63
--- NOTE | 2018-04-19 12:56 | NUR ---
IV ESTABLISHED AFTER 3 RN'S ATTEMPTED, PATIENT DRINKING ORAL CONTRAST FOR CT SCAN. PATIENT'S DAUGHTER LEFT AT THIS TIME, VITALS TAKEN PER DAUGHTER'S REQUEST, STABLE ON ROOM AIR. INFORMED OF PLAN FOR CT SCAN. PATIENT'S ABD APPEARS SWOLLEN ON RIGHT SIDE AND NOT ON LEFT SIDE OF ABDOMEN. WILL CONTINUE WITH PLAN OF CARE.
--- NOTE | 2018-04-19 14:18 | NUR ---
PATIENT TAKEN TO CT SCAN FOR CT SCAN OF ABD/PELVIS.
--- NOTE | 2018-04-19 17:32 | NUR ---
RESULTS OF CT ABD/PELVIS GIVEN TO DR ROJAS. NEW ORDERS NOTED FROM DR ROJAS. DR MADRIGAL UPDATED ON CT SCAN RESULTS AND ORDERS NOTED TO HOLD THERAPIES ON FRIDAY. WILL CONTINUE WITH PLAN OF CARE.
[2018-04-19 17:55] LABS: ABSOLUTE EOSINOPHILS 0.1 thou/uL (0.0-0.7); ABSOLUTE LYMPHOCYTES 1.4 thou/uL (0.8-5.3); ABSOLUTE MONOCYTES 0.7 thou/uL (0.0-1.2); BASOPHILS 0.8 %; EOSINOPHILS 2.4 %; HEMATOCRIT 31.2 % (37.0-47.0); HEMOGLOBIN 10.4 gm/dL (12.0-15.0); LYMPHOCYTES 26.9 %; MCH 29.9 pg (26.0-34.0); MCHC 33.3 g/dL (28.0-37.0); MCV 89.9 fL (80.0-100.0); MONOCYTES 12.5 %; NUCLEATED RBCS 0 /100WBC; PLATELET COUNT* 133 thou/uL (150-400); POLYS 57.4 %; RBC 3.47 mil/uL (4.20-5.00); WBC 5.2 thou/uL (4.0-11.0)
--- NOTE | 2018-04-19 18:34 | NUR ---
PATIENT HAS BEEN A/O X 4 THIS SHIFT, SLIGHTLY FORGETFUL AT TIMES. PATIENT CONTINUES ON LIDODERM PATCH AND SCHEDULED IBUPROFEN WITH PARTIAL RELIEF. PATIENT [place] THIS AM [place] [facility] [place], UNABLE TO DO CLOTHING MANAGMENT. PATIENT UP TO CHAIR FOR BREAKFAST, PATIENT UNABLE TO TOLERATE THE CHAIR AND REQUESTED TO LAY BACK DOWN IN BED. PATIENT STARTED TO HAVE INCREASING IN RIGHT MID/LOWER ABDOMINAL PAIN THIS SHIFT, AND UNABLE TO TOLERATE ANY MOVEMENT. DR ROJAS NOTIFIED OF INCREASING PAIN AND CT ABD/PELVIS ORDERED THIS SHIFT. IV ACCESS OBTAINED AND PATIENT HAD CT ABD/PELVIS COMPLETED THIS SHIFT. PATIENT REFUSING TO GET OUT OF BED TODAY DUE TO PAIN AND DISCOMFORT. PATIENT REFUSED ANY GROOMING, BATHING, OR CLOTHING CHANGE. DR MADRIGAL NOTIFIED OF ABNORMAL CT RESULTS WELL DR ROJAS AND ORDERS NOTED. PATIENT APPETITE POOR, DRINKING FAIR. PATIENT HAD 2 BMs THIS SHIFT, VOIDING PER BEDPAN DUE TO PAIN THIS SHIFT. FAMILY IN THIS MORNING AND UPDATED ON PLAN OF CARE. ORDERS RECEIVED FROM DR MADRIGAL TO HOLD THERAPIES ON FRIDAY FOR MEDICAL TESTING. REMAINS IN SPECIAL CONTACT FOR C DIFF. HOURLY ROUNDING COMPLETED. CALL LIGHT WITHIN REACH. WILL CONTINUE WITH PLAN OF CARE.
[2018-04-19 20:36] VITALS: BP 142/77
--- NOTE | 2018-04-19 23:50 | NUR ---
ASSUMED CARE AT 1930. PATIENT RESTING IN BED. REFUSES TO HAVE HEAD OF BED ELEVATED MUCH DUE TO PAIN WHEN MOVED. WHEN LYING STILL DOES NOT C/O PAIN. ON LEFT SIDE, REFUSES TO TURN AT THIS TIME. POINTS TO LEFT LQ WHEN ASKED WHERE PAIN IS. VOIDED PER BEDPAN, STATES MUCH PAIN, BUT REFUSES TO GET OOB AND USE BSC DUE TO PAIN. TAKES PILLS WHOLE A COUPLE AT A TIME. DRINKING WATER ADEQUATELY. ALERT AND CONVERSES WELL, MUCH BETTER THAN FRIDAY NIGHT. GABAPENTIN HELD TONIGHT PER PATIENT REQUEST STATING SHE DOESN'T THINK IT DOES MUCH GOOD FOR HER. HOURLY ROUNDS CONTINUE. BED ALARM ON. CALL LITE IN REACH.
[2018-04-20] VITALS (30 sets, daily range): BP systolic 122–178; BP diastolic 51–113
--- NOTE | 2018-04-20 05:46 | NUR ---
SLEPT OFF AND ON. CALLED OUT AT TIMES. REFUSED TO TURN. LAID ON LEFT SIDE MOST OF THE NIGHT. REFUSED TO HAVE HOB ELEVATED MUCH. AT HS DID NOT WANT PAIN MED, BUT LATER IN SHIFT TOOK HYDROCODONE WITH RETURN TO SLEEP AND DID NOT APPEAR RESTLESS. HOURLY ROUNDS CONTINUE. BED ALARM ON. CALL LITE IN REACH.
--- NOTE | 2018-04-20 06:56 | NUR ---
HAD LARGE, LOOSE, GRAINY BM PER BEDPAN. HAD DIFFICULTY IN FOLLOWING REQUEST TO MOVE HIPS TO CENTER OF THE BED TO POSITION BEDPAN. AFTER BEING PLACED ON BEDPAN, PATIENT SEQUENCING A BIT BETTER. DENIES PAIN. SKIN CARE GIVEN. REPOSITIONED IN BED. HOURLY ROUNDS CONTINUE. CALL LITE IN REACH. BED ALARM ON.
--- NOTE | 2018-04-20 13:55 | NUR ---
PT RETURNED FROM IR FROM HAVING CT/US GUIDED DRAINAGE OF ABCESSES. 2 DRAINS PRESENT (RT ABD DRAIN & LT LOWER BACK). RT ABD DRAIN WAS FLUSHED WITH 10ML OF NS TO ENCOURAGE DRAINAGE PER DR. LYLES.
--- NOTE | 2018-04-20 16:10 | NUR ---
PT RETURNED FROM CT SCAN AGAIN FROM HAVING 3RD DRAIN PLACED. THIS DRAIN WAS PLACED RIGHT BACK TO GRAVITY DRAINAGE. PT RESTING QUIETLY IN BED.
--- NOTE | 2018-04-20 17:17 | NUR ---
SHIFT NOTE - PT WENT DOWN TO IR 2 TIMES THIS SHIFT FOR DRAINAGE OF ABCESS AND PLACEMENT OF GRAVITY DRAIN X 3. ALL DRAINS ARE INTACT. DRAIN ON ABD WAS FLUSHED WITH 10ML NS WITHOUT COMPLICATIONS.
--- NOTE | 2018-04-20 18:04 | NUR ---
SPOKE WITH DR. MADRIGAL AND DISCUSSED CT FINDINGS WITH HER. REC ORDERS TO TRANSFER PT TO [facility] (1ST CHOICE) AND [facility] (2ND). PT WILL NEED A NEUROSURGEON CONSULT TO EVAL/TREAT. DR. MAC NOTIFIED. CALLED PT'S DTR (CHRISTAL) AND NOTIFIED HER. CHART COPIED. AWAITING NURSING RIBBER FOR TRANSFER DETAILS.
--- NOTE | 2018-04-20 20:00 | NUR ---
PATIENT RESTING QUIETLY IN BED. DAUGHTER AT BEDSIDE. PATIENT COMPLAINING OF BACK PAIN RATED "8". SCHEDULED IBUPROFEN GIVEN. TOOK MEDICATIONS WHOLE 3 AT A TIME EXCEPT FOR THE CALCIUM PILL WHICH WAS CUT IN HALF. TOOK MEDICATIONS WITH WATER. PATIENT IN GOOD SPIRITS, MAKING JOKES. DRAINAGE BAG IN RUQ AND 2 DRAINAGE BAGS IN THE BACK ALL INTACT. PLACED DRAIN SPONGES UNDER TURN NOZZLE TO REDUCE PRESSURE OF THE NOZZLES ON THE SKIN. PATIENT IN SPECIAL ISOLATION FOR C-DIFF.
--- NOTE | 2018-04-20 20:50 | NUR ---
PATIENT LEFT VIA GURNEY TO BE TRANSFERRED TO [facility] [address] ACCOMPANINED BY 2 PARAMEDICS. REPORT BY THIS NURSE WAS GIVEN TO MIGUELITO WILLINGHAM THE TRANSFER NURSE AND DANE THE ER CHARGE NURSE VIA TELEPHONE. COPY OF THE CHART WHICH INCLUDED TWO DISKS WITH RADIOLOGY IMAGES INCLUDING THE MRI WERE INCLUDED. PATIENT'S DISCHARGE VITALS WERE 137/74 82 20 97.9 AND 02 SAT OF 95% ON ROOM AIR. CALLED ANTHONY, PATIENT'S DAUGHTER TO INFORM HER THAT THE PATIENT WAS ON HER WAY TO [facility]. DAUGHTER DIDN'T ANSWER SO LEFT A VOICEMAIL. THE TRANSFER NURSE FROM [facility] CALLED AT ABOUT 2145 AND WAS INFORMED THAT THE PATIENT WOULD BE LEAVING SOON. THE PARAMEDICS WERE HERE AT THAT TIME. THE PATIENT WAS INCONTIENT OF URINE AND THE TWO BANK CLERK'S WERE PERFORMING WEI CARE.
--- NOTE | 2018-04-26 08:16 | D ---
[facility] [address] [place] [address] DISCHARGE SUMMARY Name: ARACELI TOMPKINS Room: [address] IN .R.#: [id number] Admission: 04/14/18 Attend Phys: Doris Matos DO Discharge: 04/20/18 Date of : 44 Report #: [id number] THIS REPORT FOR: //name// CC: Ernie Matos DATE OF SERVICE: 04/20/2018 DISCHARGE DISPOSITION: [facility] for neurosurgical consultation. DISCHARGE DIAGNOSES: Status post multiple falls with L1 compression fracture, treated conservatively, awaiting kyphoplasty as a result of a fall in mid March. She is admitted with metabolic encephalopathy, was diagnosed with osteomyelitis via CT imaging on 04/20/2018, with multiple abscesses noted. She also has uncontrolled diabetes. Her osteomyelitis and abscesses are compared to a previous CT done on 04/06/2018. Discharge disposition is to acute hospitalization for neurosurgical evaluation given a new diagnosis of osteomyelitis. There was a previously noted fluid collection 20 x 4 x 6 cm in the abdomen that was noted on admission. Notifications for physician were given. She will follow up as intended by her current medical team at [facility]. DIET: Same. MEDICATIONS: Reviewed and reconciled. Due to the acuity of her discharge, physical exam was not completed. <ELECTRONICALLY SIGNED> By: Doris Matos DO 04/26/18 0816 1344 [id number] debbi Hopkins
--- NOTE | 2018-04-26 08:16 | PLAN ---
[address] [address] REHAB UNIT PLAN OF CARE Name: ARACELI TOMPKINS Room: [address] IN [facility]#: [id number] Admission: 04/14/18 Attend Phys: Doris Matos DO Discharge: 04/20/18 Date of : 44 Report #: [id number] THIS REPORT FOR: //name// CC: Doris Matos Amparo Moreno This is a 77-year-old female admitted to inpatient rehabilitation to facilitate safe discharge home status post L1 compression fracture with kyphoplasty planned in the future. She does have ongoing low back pain. She did have a fall in her home in mid March. She was taking hydrocodone and tramadol, which caused her to have altered mental status and hallucinations. She was acutely admitted on 04/06/2018. She was admitted with urinary tract infection and septicemia. There are no significant changes since the previous level of function. Prior level of function was independent to modified independent with ADLs. Current level of function is minimum to moderate assistance of 1-2 depending on therapy, activity and time of day. Estimated length of stay is 12-14 days with discharge disposition to the home setting with supportive family. Medical prognosis is good. Rehabilitation prognosis is good. Physical Therapy will see the patient 60-90 minutes per day, 5 days per week, working on upper and lower body strength, balance, coordination, navigation. Occupational Therapy will work with the patient 60-90 minutes per day, 5 days per week, working on upper and lower body strength, balance, coordination, navigation, bathing, dressing, and toileting. This is an overall plan of care, may change from time to time. We will team weekly and make changes to the plan of care as needed. <ELECTRONICALLY SIGNED> By: Doris Matos DO 04/26/18 0816 1046 [id number] Matos DO /nt
== END 2018-04-20 21:50 | disposition short-term general hospital (02) | DRG 542 ==
LOC: M.REH 15:40
PROVIDERS: Internal Medicine; ADMIT Physical Medicine & Rehabilitation
PROC: 0W9F30Z Drainage of Abdominal Wall with Drainage Device, Percutaneous Approach (ICD-10-PCS; principal; 2018-04-20)
PROC: 0K9P30Z Drainage of Left Hip Muscle with Drainage Device, Percutaneous Approach (ICD-10-PCS; principal; 2018-04-20)
PROC: 0K9N30Z Drainage of Right Hip Muscle with Drainage Device, Percutaneous Approach (ICD-10-PCS; principal; 2018-04-20)
DX: M48.56XA Collapsed vertebra, not elsewhere classified, lumbar region, initial encounter for fracture (principal); A41.51 Sepsis due to Escherichia coli [E. coli]; K68.12 Psoas muscle abscess; G93.41 Metabolic encephalopathy; N39.0 Urinary tract infection, site not specified; A04.72 Enterocolitis due to Clostridium difficile, not specified as recurrent; I50.32 Chronic diastolic (congestive) heart failure; I42.9 Cardiomyopathy, unspecified; I13.0 Hypertensive heart and chronic kidney disease with heart failure and stage 1 through stage 4 chronic kidney disease, or unspecified chronic kidney disease; J98.11 Atelectasis; R18.8 Other ascites; N18.9 Chronic kidney disease, unspecified; E11.22 Type 2 diabetes mellitus with diabetic chronic kidney disease; Z88.2 Allergy status to sulfonamides; Z88.8 Allergy status to other drugs, medicaments and biological substances; Z95.0 Presence of cardiac pacemaker; Z79.899 Other long term (current) drug therapy; Z85.3 Personal history of malignant neoplasm of breast; Z86.73 Personal history of transient ischemic attack (TIA), and cerebral infarction without residual deficits; R53.81 Other malaise; Z86.74 Personal history of sudden cardiac arrest; Z90.49 Acquired absence of other specified parts of digestive tract; Z82.49 Family history of ischemic heart disease and other diseases of the circulatory system; Z87.891 Personal history of nicotine dependence; Z91.81 History of falling

== ENCOUNTER 2018-08-03 11:40 | Inpatient (IN) | payer MEDICARE, OTHER ==
[~2018-08-03] VITALS: Ht 152.4 cm; Wt 65.3 kg
[2018-08-03 11:49] VITALS: BP 125/89
[2018-08-03] MEDS ORDERED: CHOLESTYRAMINE R5 GM PO (12:02)
[2018-08-03] MEDS ORDERED: IRON325 PO (12:03)
[2018-08-03] MEDS ORDERED: PRINIVIL10 MG PO (12:04)
[2018-08-03] MEDS ORDERED: REMERON15 M2 PO (12:05)
[2018-08-03] MEDS ORDERED: OMEPRAZOLE20 M2 PO (12:05)
[2018-08-03] MEDS ORDERED: PHOSPHA 250 NE250 MG PO (12:07)
[2018-08-03] MEDS ORDERED: POTASSIUM20 PO (12:08)
[2018-08-03] MEDS ORDERED: TYLENOL325 MG PO (12:09)
[2018-08-03] MEDS ORDERED: COLACE100 MG PO (12:09)
[2018-08-03] MEDS ORDERED: LASIX 40 MG TAB40 M2 PO ×2 (12:12)
[2018-08-03 13:00] LABS: ABSOLUTE EOSINOPHILS 0.1 thou/uL (0.0-0.7); ABSOLUTE LYMPHOCYTES 1.7 thou/uL (0.8-5.3); ABSOLUTE MONOCYTES 0.3 thou/uL (0.0-1.2); ABSOLUTE NEUTROPHILS 2.1 thou/uL (1.6-8.1); BASOPHILS 0.5 %; EOSINOPHILS 2.1 %; HEMATOCRIT 28.2 % (37.0-47.0); HEMOGLOBIN 9.1 gm/dL (12.0-15.0); MCH 30.5 pg (26.0-34.0); MCHC 32.3 g/dL (28.0-37.0); MCV 94.6 fL (80.0-100.0); MPV 8.1 fl. (7.2-11.1); NUCLEATED RBCS 0 /100WBC; PLATELET COUNT* 111 thou/uL (150-400); POLYS 49.4 %; RBC 2.98 mil/uL (4.20-5.00); RDW-CV 19.7 % (10.5-14.5); WBC 4.2 thou/uL (4.0-11.0)
[2018-08-03 13:11] LABS: CALCIUM 7.4 mg/dL (8.5-10.1); CREATININE 0.7 mg/dL (0.6-1.3); POTASSIUM 3.8 mmol/L (3.5-5.1)
[2018-08-03 13:16] LABS: BE 4.7 mmol/L (-2 to +3); HCO3 29.3 mmol/L (22.0-26.0); PO2 79.2 mmHg (75.0-100.0); pH 7.442 (7.340-7.450)
[2018-08-03 13:20] LABS: APTT 26.9 Seconds (25.0-31.3); INR 1.1; PROTIME 11.2 Seconds (9.20-11.50)
[2018-08-03 13:21] LABS: ALBUMIN 1.6 g/dL (3.4-5.0); MAGNESIUM 1.3 mg/dL (1.8-2.4); TOTAL BILIRUBIN 0.4 mg/dL (<0.1-1.0); TOTAL PROTEIN 5.6 g/dL (6.4-8.2)
[2018-08-03 14:20] VITALS: BP 118/66
[2018-08-03 14:37] VITALS: BP 116/98
[2018-08-03] MEDS ORDERED: HYDROCODON-ACE1 EAC7 PO (15:30)
[2018-08-03] MEDS ORDERED: ACIDOPHILUS1 EAC4 PO (15:33)
[2018-08-03 17:01] VITALS: BP 104/64
[2018-08-03 20:00] VITALS: BP 124/76
[2018-08-04] VITALS: BP 110/54
[2018-08-04 04:00] VITALS: BP 124/61
[2018-08-04 05:06] LABS: CALCIUM 7.4 mg/dL (8.5-10.1); CREATININE 0.8 mg/dL (0.6-1.3); POTASSIUM 3.6 mmol/L (3.5-5.1)
[2018-08-04 08:00] VITALS: BP 112/56
[2018-08-04 09:10] LABS: GLYCOHEMOGLOBIN (HGB A1C) 5.2 % (4.8-5.6)
[2018-08-04 11:48] VITALS: BP 106/61
[2018-08-04 13:23] LABS: URINE BILIRUBIN NEGATIVE (Negative); URINE BLOOD NEGATIVE (Negative); URINE CLARITY CLEAR; URINE COLOR YELLOW; URINE GLUCOSE-RANDOM NEGATIVE (Negative); URINE KETONES NEGATIVE (Negative); URINE LEUKOCYTES-REFLEX TRACE (Negative); URINE NITRITE-REFLEX NEGATIVE (Negative); URINE PROTEIN NEGATIVE (Negative); URINE SPECIFIC GRAVITY 1.015 (1.005-1.030); URINE UROBILINOGEN 0.2 E.U./dl (0.2-1.0)
[2018-08-04 13:31] LABS: SQUAMOUS 0-3 Few /LPF (0-3); URINE RBC None Seen /HPF (0-2); URINE WBC-REFLEX 6-15 Few /HPF (0-5)
--- NOTE | 2018-08-04 13:49 | 2DMMODE ---
[place] [address] 2 D/M-MODE ECHOCARDIOGRAM Name: ARACELI TOMPKINS Room: [address] IN [facility]#: [id number] Admission: 08/03/18 Attend Phys: Josue Crow, Discharge: Date of : 44 Date of Service: 08/04/18 1349 Report #: [id number] THIS REPORT FOR: //name// APPROVED REPORT Study performed: 08/04/2018 11:01:10 EXAM: Comprehensive 2D, Doppler, and color-flow Echocardiogram Patient Location: In-Patient Room #: 210 Status: routine BSA: 1.67 HR: 87 bpm BP: 124/61 mmHg Rhythm: NSR Other Information Study Quality: Good Indications Congestive Heart Failure Dyspnea 2D Dimensions IVSd: 10.09 (7-11mm) LVOT Diam: 19.52 (18-24mm) LVDd: 49.31 mm PWd: 9.52 (7-11mm) Ascending Ao: 33.33 (22-36mm) LVDs: 30.93 (25-40mm) Aortic Root: 32.48 mm Volumes Left Atrial Volume (Systole) LA ESV Index: 33.50 mL/m2 Aortic Valve AoV Peak Skyler.: 1.77 m/s AO Peak Gr.: 12.56 mmHg LVOT Max P.00 mmHg AO Mean Gr.: 7.46 mmHg LVOT Mean P.40 mmHg LVOT Max V: 0.87 m/s AO V2 VTI: 33.84 cm LVOT Mean V: 0.54 m/s NAKUL (VTI): 1.61 cm2 LVOT V1 VTI: 18.18 cm Mitral Valve MV Mean Gr.: 3.66 mmHg E/A Ratio: 0.83 MV Decel. Time: 333.80 [place] [address] 2 D/M-MODE ECHOCARDIOGRAM Name: ARACELI TOMPKINS Room: [address] IN ..#: [id number] Admission: 08/03/18 Attend Phys: Josue Crow, Discharge: Date of : 44 Date of Service: 08/04/18 1349 Report #: [id number] MV E Max Skyler.: 1.27 m/s MV PHT: 96.80 ms MVA (PHT): 2.27 cm2 TDI E/Lateral E': 18.14 E/Medial E': 25.40 Medial E' Skyler.: 0.05 m/s Lateral E' Skyler.: 0.07 m/s Pulmonary Valve PV Peak Skyler.: 0.86 m/s PV Peak Gr.: 2.93 mmHg Tricuspid Valve RAP Estimate: 5.00 mmHg TR Peak Gr.: 25.36 mmHg RVSP: 30.00 mmHg PA Pressure: 30.00 mmHg Left Ventricle The left ventricle is normal size. There is normal LV segmental wall motion. There is normal left ventricular wall thickness. Left ventricular systolic function is normal. LVEF is 55-60%. Grade I - abnormal relaxation pattern. Right Ventricle The right ventricle is normal size. The right ventricular systolic function is normal. Atria Left atrium is mildly dilated. The right atrium size is normal. Aortic Valve Mild aortic valve sclerosis. No aortic regurgitation is present. Mild aortic stenosis. Mitral Valve Moderate mitral annular calcification. Mild mitral regurgitation. Mild mitral stenosis. Tricuspid Valve The tricuspid valve is normal in structure. Mild tricuspid regurgitation. Borderline pulmonary hypertension. Pulmonic Valve The pulmonary valve is normal in structure. Mild [place] [address] 2 D/M-MODE ECHOCARDIOGRAM Name: ARACELI TOMPKINS Room: [address]#: [id number] Admission: 08/03/18 Attend Phys: Josue Crow, Discharge: Date of : 44 Date of Service: 08/04/18 1349 Report #: [id number] Great Vessels The aortic root is normal in size. IVC is normal in size and collapses >50% with inspiration. Pericardium There is no pericardial effusion. <Conclusion> The left ventricle is normal size. There is normal left ventricular wall thickness. Left ventricular systolic function is normal. LVEF is 55-60%. Grade I - abnormal relaxation pattern. Left atrium is mildly dilated. Mild aortic valve sclerosis. Mild aortic stenosis. Moderate mitral annular calcification. Mild mitral stenosis. Mild tricuspid regurgitation. Borderline pulmonary hypertension. IVC is normal in size and collapses >50% with inspiration. <ELECTRONICALLY SIGNED> By: Harshil Shukla MD, FACC 08/04/18 1349 134 48 Harshil Shukla MD, FACC /INF
[2018-08-04 16:00] VITALS: BP 109/65
--- NOTE | 2018-08-04 16:19 | EKG ---
[place] [address] ELECTROCARDIOGRAM REPORT Name: ARACELI TOMPKINS Room: [address] ADM IN ..#: [id number] Admission: 08/03/18 Attend Phys: Josue Crow MD Discharge: Date of : 44 Report #: [id number] THIS REPORT FOR: //name// [facility] ED Test Date: 2018-08-03 Test Time: 14:04:43 Pat Name: ARACELI TOMPKINS Department: Room: [facility] Gender: F Lpn Medical Assistant: MS : 1940 Requested By: Yessy Zhao Order Number: [id number] MD: Harshil Shukla Measurements Intervals [place] Rate: 94 P: 26 VA: 137 QRS: -52 QRSD: 110 T: 4 QT: 425 QTc: 532 Interpretive Statements Sinus rhythm Left anterior fascicular block Prolonged QT interval Baseline wander in lead(s) V1,V2,V3 Compared to ECG 04/06/2018 16:27:50 Left anterior fascicular block now present Left bundle-branch block no longer present Electronically Signed On 08-04-2018 16:19:13 ELECTRONICS TEST ENGINEER by Harshil Shukla [email or web address] <ELECTRONICALLY SIGNED> By: Harshil Shukla MD, FACC 08/04/18 1619 1404 1404 Harshil Shukla MD, FACC /EPI
--- NOTE | 2018-08-04 17:36 | CON ---
[address] [address] CONSULTATION Name: ARACELI TOMPKINS Room: [address] IN ..#: [id number] Admission: 08/03/18 Attend Phys: Josue Crow MD Discharge: Date of : 42 Report #: [id number] THIS REPORT FOR: //name// CC: Josue LEMA TYPE OF REPORT: Cardiology consultation. INDICATION: Zpepz-qy-ngkrdqf combined heart failure. HISTORY OF PRESENT ILLNESS: The patient is a very pleasant 78-year-old white female who is well known to myself. She has a history of nonischemic cardiomyopathy felt to be due to chemotherapy received many years ago. She has had complications from bacteremia and sepsis, felt to be related to urinary tract infection several months ago. The patient had infection of her ICD requiring removal of the device and leads, felt to be secondary to her bacteremia. She has had general failure to thrive since that time. She was treated for multiple infections. She was ultimately transferred to assisted care. While in assisted care, she has gained approximately 20+ pounds. She appears grossly volume overloaded at this time. She is having orthopnea and dyspnea on exertion. She denies any chest pain. She is without other cardiac complaint presently. PAST MEDICAL HISTORY: 1. Chronic kidney disease. 2. Chronic combined heart failure. 3. History of breast cancer remotely. 4. History of nonischemic cardiomyopathy. 5. History of hepatitis C. 6. Hyperkalemia. 7. Hyperlipidemia. 8. Hypotension. 9. Remote history of non-STEMI. 10. History of pubis ramus fracture. 11. Type 2 diabetes mellitus. PAST SURGICAL HISTORY: 1. Ankle surgery x 2. 2. Bone marrow transplant. 3. Breast reconstruction. 4. Cholecystectomy. 5. Laminectomy. 6. Liver biopsy. 7. Right mastectomy. 8. [place] [address] CONSULTATION Name: ARACELI TOMPKINS Room: [address]#: [id number] Admission: 08/03/18 Attend Phys: Josue Crow MD Discharge: Date of : 42 Report #: [id number] FAMILY HISTORY: Noncontributory. SOCIAL HISTORY: The patient is a lifelong nonsmoker. She does not drink alcohol. ALLERGIES: SULFA, DIGOXIN and PREDNISONE. CURRENT MEDICATIONS: Tylenol p.r.n., carvedilol 25 mg b.i.d. Questran 4 mg 2 times daily, Colace 100 mg 2 tablets daily, iron sulfate 325 mg daily, Lasix 40 mg 2 tablets daily, Elmore 5/325 one tablet q. 4 hours p.r.n., lisinopril 10 mg daily, Remeron 15 mg nightly, omeprazole 20 mg daily, magnesium supplement one tablet 3 times daily, potassium chloride 20 mEq b.i.d., probiotic one tablet daily and Requip 2 mg nightly. REVIEW OF SYSTEMS: CONSTITUTIONAL: She has had a weight gain recently. She denies any recent fevers. She denies any focal paralysis but has generalized weakness. She has a cough that is nonproductive. She has orthopnea and paroxysmal nocturnal dyspnea as well as dyspnea on exertion but no shortness of breath at rest. She denies chest pain. She is not having syncope. She does have edema. ENDOCRINE: She denies thyroid disease. She does have diabetes. GASTROINTESTINAL: No nausea, vomiting, hematemesis, melena or hematochezia. GENITOURINARY: No dysuria or hematuria, although she has been treated recently for UTI. ALLERGY AND IMMUNOLOGIC: Medical allergy as outlined above. PSYCHIATRIC: No depression or anxiety. MUSCULOSKELETAL: She has arthritis without connective tissue diseases. SKIN: No recent rashes, hives or chronic skin conditions. EYES: She wears glasses. She has no acute loss in vision. EARS, NOSE, MOUTH AND THROAT: She denies decreased hearing or epistaxis. PHYSICAL EXAMINATION: VITAL SIGNS: Blood pressure 116/98 and pulse is 95 and regular. GENERAL: This is a pleasant elderly female who appears pale. She is in no distress. VITAL SIGNS: Stable as outlined above. HEENT: Head normocephalic and atraumatic. Extraocular muscles intact. Mucous membranes are moist. NECK: Shows jugular venous distention without carotid bruit. CHEST: Reveals diminished breath sounds in the bases. I do not appreciate rales or wheezes. CARDIOVASCULAR: Reveals a regular rhythm without gallop or murmur. ABDOMEN: Reveals normal bowel sounds. The abdomen is soft and nontender. EXTREMITIES: Shows 3+ edema to above the mid thighs bilaterally. [address] [address] CONSULTATION Name: ARACELI TOMPKINS Room: [address] IN M.R.#: [id number] Admission: 08/03/18 Attend Phys: Josue Crow MD Discharge: Date of : 42 Report #: [id number] RADIOLOGICAL DATA: A 12-lead EKG shows sinus rhythm with left bundle-branch block. I do not appreciate acute ST or T-wave abnormality. Chest x-ray shows basilar atelectasis without obvious pulmonary vascular congestion. LABORATORY DATA: Labs are reviewed. NT-pro-BNP is 8000. IMPRESSION AND RECOMMENDATIONS: 1. Tjoyb-oj-fhndmja combined heart failure. The patient is being admitted for diuresis with IV Lasix. We will repeat echocardiogram at this time. Follow inputs and outputs closely. We will obtain labs in a.m. 2. Nonischemic cardiomyopathy. We will adjust medications for heart failure as tolerated. Continue carvedilol and lisinopril at current doses if possible. 3. Remote history of coronary artery disease by catheterization is nonocclusive. She is not having any symptoms to suggest angina. We will follow clinically. 4. History of chronic renal insufficiency. Her kidney functions appear normal at this time. We will follow. 5. Diabetes. Treatment with hospitalist help. <ELECTRONICALLY SIGNED> By: Harshil Shukla MD, FACC 08/04/18 1736 1639 [id number] Hospitalfelicia Shukla MD, FACC /nt
[2018-08-04 20:00] VITALS: BP 101/59
[2018-08-05] VITALS: BP 93/48
[2018-08-05 04:00] VITALS: BP 106/59
[2018-08-05 05:35] LABS: HEMOGLOBIN 7.9 gm/dL (12.0-15.0); MCH 31.3 pg (26.0-34.0); MCHC 32.9 g/dL (28.0-37.0); MCV 94.9 fL (80.0-100.0); MPV 8.7 fl. (7.2-11.1); RBC 2.53 mil/uL (4.20-5.00); RDW-CV 19.3 % (10.5-14.5); WBC 4.5 thou/uL (4.0-11.0)
[2018-08-05 05:39] LABS: CALCIUM 7.7 mg/dL (8.5-10.1); CREATININE 0.9 mg/dL (0.6-1.3); MAGNESIUM 1.6 mg/dL (1.8-2.4)
[2018-08-05 08:00] VITALS: BP 114/59
[2018-08-05 11:47] VITALS: BP 110/60
--- NOTE | 2018-08-05 12:13 | CON ---
[address] [address] CONSULTATION Name: ARACELI TOMPKINS Room: [address] IN .R.#: [id number] Admission: 08/03/18 Attend Phys: Josue Crow MD Discharge: Date of : 44 Report #: [id number] THIS REPORT FOR: //name// CC: Josue Mayer DATE OF SERVICE: 08/04/2018 INFECTIOUS DISEASE CONSULTATION ATTENDING PHYSICIAN: Josue Crow M.D. REASON FOR EVALUATION: Bilateral inflammatory lower extremity eruptions. HISTORY OF PRESENT ILLNESS: Chart reviewed, patient examined. This is a 78-year-old with fairly extensive medical history and she is known to have bone marrow transplant in 1980s. She states she has been essentially hospitalized for the last 10 months at various facilities including the [facility] facilities, had presented with lower extremity bilateral swelling over the course of the last 2-3 weeks, had gained roughly 40 pounds. There was some drainage from the lower extremities and it became quite painful. She states she was unable to ambulate, previous to that had used a walker. It is not clear exactly what was primarily weakness or the pain. It is not clear she had any fevers or chills. She does experience some degree of dyspnea with wheezing, although no cough. She denies any significant gastrointestinal-related complaints other than poor appetite recently. Of note, in April of this year, she was hospitalized with Escherichia coli septicemia, apparently had some intra-abdominal abscesses as well requiring percutaneous drainage. She is mildly encephalopathic. Lactic acid was noted to be normal at 1.2. She was not hypoxemic on room air. Blood cultures were collected and in pending stage. Empirically, she was not placed on antimicrobial therapy. ALLERGIES: SULFA, DIGOXIN AND PREDNISONE. CURRENT MEDICATIONS: Include phosphorus, mirtazapine, lisinopril, aspirin, pantoprazole, furosemide, enoxaparin, potassium, carvedilol, ropinirole, lactobacillus, ondansetron. PAST MEDICAL HISTORY: History of hepatitis C, breast cancer, previous history of bone marrow transplant, cardiomyopathy, history of congestive heart failure, has had multiple orthopedic surgeries, recent Escherichia coli septicemia with intra-abdominal abscesses. SOCIAL HISTORY: Nonsmoker, [place] [address] CONSULTATION Name: ARACELI TOMPKINS Room: [address] IN [facility]#: [id number] Admission: 08/03/18 Attend Phys: Josue Crow MD Discharge: Date of : 42 Report #: [id number] FAMILY HISTORY: Noncontributory. REVIEW OF SYSTEMS: Otherwise, unremarkable 10-point review of systems with the exception noted in the history of present illness. PHYSICAL EXAMINATION: GENERAL: She appears somewhat chronically ill, undernourished, is pleasant, cooperative. She is mildly encephalopathic. She is in icdc-ll-qmrqogzd distress. VITAL SIGNS: Temperature 97.8, pulse 83, respirations 14, blood pressure 124/61. SKIN: Warm, dry. HEENT: Extraocular muscles intact. No oral lesions. NECK: Supple. LUNGS: Few scattered coarse breath sounds. HEART: Regular, does have occasional ectopy. No appreciated murmur. ABDOMEN: Soft, no peritoneal signs. EXTREMITIES: Lower extremities, somewhat tense edema, it is palpably tender bilaterally to below the knees. There are some superficial eschars. At this point, I do not see any drainage, no bullous lesions, no overt ulcers. Distal pulses diminished. GENITOURINARY: Deferred. RECTAL: Deferred. LABORATORY DATA: Electrolytes: Sodium 142, potassium 3.6, chloride 107, bicarbonate is 34, anion gap of 1, BUN and creatinine 9 and 0.8. Doppler of lower extremities, no evidence of DVT bilaterally. Liver functions unremarkable. Albumin 1.6. Total protein 5.6. Lactic acid 1.2. ABGs, pH 7.442, pCO2 of 44, pO2 of 79.2 on room air. D-dimer elevated 2.71. Chest x-ray, left basilar atelectasis, some scarring, mild linear atelectasis and parenchymal scarring in the right lung, pulmonary edema. CBC: White count 4.2, H and H 9.1 and 28.2, platelets of 111. ASSESSMENT: Bilateral lower extremity inflammatory eruptions, cannot entirely exclude cellulitic process, does have some breaches in the skin with eschars. She is quite tender. I suspect component of venous stasis/insufficiency and probably some right-sided failure leading to peripheral edema. At this point, I do not know if it is too exquisitely tender to apply some compression given her age. We will do Doppler studies to exclude it in the event that ultimately which she will need compression I think. We will start empiric antimicrobial therapy and elevation in conjunction with some diuretics. <ELECTRONICALLY SIGNED> By: Gurmeet Costa MD 08/05/18 1213 0956 1219Joren Costa MD /nt
[2018-08-05 16:11] VITALS: BP 100/49
[2018-08-05 19:50] VITALS: BP 104/51
[2018-08-06] VITALS: BP 120/64
[2018-08-06 04:54] LABS: HEMATOCRIT 23.9 % (37.0-47.0); HEMOGLOBIN 7.9 gm/dL (12.0-15.0); MPV 8.4 fl. (7.2-11.1); RBC 2.54 mil/uL (4.20-5.00); RDW-CV 18.7 % (10.5-14.5); WBC 4.6 thou/uL (4.0-11.0)
[2018-08-06 05:34] LABS: ALBUMIN 1.5 g/dL (3.4-5.0); CALCIUM 7.7 mg/dL (8.5-10.1); CREATININE 0.8 mg/dL (0.6-1.3); MAGNESIUM 1.6 mg/dL (1.8-2.4); POTASSIUM 3.7 mmol/L (3.5-5.1); TOTAL BILIRUBIN 0.3 mg/dL (<0.1-1.0); TOTAL PROTEIN 4.9 g/dL (6.4-8.2)
[2018-08-06 08:00] VITALS: BP 103/87
[2018-08-06 12:00] VITALS: BP 118/68
[2018-08-06 20:00] VITALS: BP 150/59
[2018-08-07] VITALS (13 sets, daily range): BP systolic 115–145; BP diastolic 45–96
[2018-08-07 04:53] LABS: HEMATOCRIT 23.2 % (37.0-47.0); HEMOGLOBIN 7.7 gm/dL (12.0-15.0); MCH 31.3 pg (26.0-34.0); MCHC 33.4 g/dL (28.0-37.0); MCV 93.6 fL (80.0-100.0); MPV 8.6 fl. (7.2-11.1); RBC 2.48 mil/uL (4.20-5.00); WBC 3.8 thou/uL (4.0-11.0)
[2018-08-07 04:59] LABS: INR 1.1
[2018-08-07 05:06] LABS: PREALBUMIN 7.4 mg/dL (18.0-35.7)
[2018-08-07 05:14] LABS: ALBUMIN 1.4 g/dL (3.4-5.0); CALCIUM 7.8 mg/dL (8.5-10.1); CREATININE 0.9 mg/dL (0.6-1.3); MAGNESIUM 1.6 mg/dL (1.8-2.4); POTASSIUM 3.8 mmol/L (3.5-5.1); TOTAL BILIRUBIN 0.4 mg/dL (<0.1-1.0); TOTAL PROTEIN 5.1 g/dL (6.4-8.2)
[2018-08-08 01:06] VITALS: BP 117/62
[2018-08-08 04:19] VITALS: BP 120/61
[2018-08-08 07:07] LABS: HEPATITIS B SURFACE AG Negative (Negative)
[2018-08-08 08:02] VITALS: BP 123/75
[2018-08-08 12:28] VITALS: BP 102/63
[2018-08-08 16:06] VITALS: BP 107/61
[2018-08-08 20:00] VITALS: BP 100/69
[2018-08-09] VITALS (7 sets, daily range): BP systolic 96–130; BP diastolic 57–84
[2018-08-10 00:07] VITALS: BP 99/62
[2018-08-10 04:26] VITALS: BP 120/71
[2018-08-10 12:00] VITALS: BP 119/87
--- NOTE | 2018-08-10 12:28 | EKG ---
[place] [address] ELECTROCARDIOGRAM REPORT Name: ARACELI TOMPKINS Room: [address] ADM IN .R.#: [id number] Admission: 08/03/18 Attend Phys: Josue Crow MD Discharge: Date of : 44 Report #: [id number] THIS REPORT FOR: //name// [facility] Test Date: 2018-08-09 Test Time: 11:11:08 Pat Name: ARACELI TOMPKINS Department: Room: [address] Gender: F Airset Caster: Tayler : 1940 Requested By: Josue Crow Order Number: [id number] Reading MD: Ernie Houser Measurements Intervals [place] Rate: 75 P: 18 MD: 154 QRS: -47 QRSD: 119 T: 14 QT: 434 QTc: 485 Interpretive Statements Sinus rhythm Multiple premature complexes supraventricular left axis Anterior Q waves, Compared to ECG 08/03/2018 14:04:43 Prolonged QT interval no longer present Electronically Signed On 08-10-2018 12:28:31 SERVICENOW ADMINISTRATOR by Ernie Houser [email or web address] <ELECTRONICALLY SIGNED> By: Ernie Houser MD, [facility] 08/10/18 1228 1111 1111 Ernie Houser MD, [facility] /EPI
[2018-08-10 15:40] VITALS: BP 111/64
[2018-08-10 20:00] VITALS: BP 128/71
[2018-08-10 21:10] LABS: HCV QUANT BY PCR 1850000 IU/mL (())
[2018-08-11] VITALS: BP 122/61
[2018-08-11 04:00] VITALS: BP 103/61
[2018-08-11 06:25] LABS: HEMOGLOBIN 8.3 gm/dL (12.0-15.0); MCH 31.3 pg (26.0-34.0); MCHC 33.1 g/dL (28.0-37.0); MCV 94.7 fL (80.0-100.0); MPV 8.5 fl. (7.2-11.1); RBC 2.64 mil/uL (4.20-5.00); RDW-CV 18.7 % (10.5-14.5); WBC 3.1 thou/uL (4.0-11.0)
[2018-08-11 06:40] LABS: ALBUMIN 1.5 g/dL (3.4-5.0); CALCIUM 7.9 mg/dL (8.5-10.1); CREATININE 0.7 mg/dL (0.6-1.3); MAGNESIUM 1.8 mg/dL (1.8-2.4); POTASSIUM 3.7 mmol/L (3.5-5.1); TOTAL BILIRUBIN 0.2 mg/dL (<0.1-1.0); TOTAL PROTEIN 5.2 g/dL (6.4-8.2)
[2018-08-11 08:00] VITALS: BP 128/71
[2018-08-11 12:00] VITALS: BP 100/63
[2018-08-11 16:00] VITALS: BP 110/56
[2018-08-11 20:00] VITALS: BP 124/66
[2018-08-12] VITALS: BP 121/58
[2018-08-12 04:00] VITALS: BP 109/57
[2018-08-12 09:15] VITALS: BP 105/65
[2018-08-12] MEDS ORDERED: LASIX 40 MG TAB40 M1 PO (11:16)
[2018-08-12] MEDS ORDERED: FOLIC ACID1 MG PO (11:16)
[2018-08-12] MEDS ORDERED: HYDROCODON-ACE1 EAC7 PO (11:16)
[2018-08-12] MEDS ORDERED: DOXYCYCLINE 10100 MG PO (11:16)
[2018-08-12 12:00] VITALS: BP 134/75
--- NOTE | 2018-08-13 12:05 | PATH ---
[facility] [address] [place] [address] PATHOLOGY RPT PROCEDURE Name: ARACELI CANO Room: [address] IN ..#: [id number] Admission: 08/03/18 Date of : 44 Discharge: 08/12/18 Report #: [id number] Path Case #: [id number] [facility] Accession Number: [id number] . 01 Material submitted: . L1 BX . 01 Clinical history: . Previous biopsy April 2018, additional history per requisition . 02 Diagnosis: L1 biopsy: - Blood clot including aggregates of acute and chronic inflammatory cells and minute fragments of bone. See comment. QTP/08/11/2018 . 02 Comment: Several minute fragments of bone are present which do not show recognizable osteomyelitis. The great majority of the specimen represents blood clot with a more minor aggregation of acute and chronic inflammatory cells which likely represents sedimentation. (BATSHEVA:pit 08/11/2018) . 02 Electronically signed: . Jeremy Dickerson MD, Pathologist NPI- [id number] . 01 Gross description: . Received in formalin labeled "Araceli Cano, L1 bone," is a 2.7 x 2.3 x 0.2 cm aggregate of blood clot. Bone and soft tissue are not identified grossly. The specimen is submitted entirely in cassette A1, for serial multiple step sections. . ([facility]; 08/10/2018) XDC/XDC . 02 Pathologist provided ICD-10: I82.90 . 02 CPT . 123098 Specimen Comment: A courtesy copy of this report has been sent to Specimen Comment: [phone], , , . Specimen Comment: Report sent to ,DR ALICEA,DR WOLF Specimen Comment: DR ROJAS Specimen Comment: A duplicate report has been generated due to demographic updates. Performed at: [address] [place] [address] PATHOLOGY RPT PROCEDURE Name: CANO,ARACEIL Heard Room: [address] IN M.R.#: [id number] Admission: 08/03/18 Date of : 44 Discharge: 08/12/18 Report #: [id number] Path Case #: [id number] [facility] [address], [place], [place] [id number] MD William Villegas MD Phone: [phone] Performed at: [address] [address] [address], [place], [place] [id number] MD Jeremy Dickerson MD Phone: [phone]
--- NOTE | 2018-08-15 13:50 | CON ---
[facility] [address] [place] [address] CONSULTATION Name: ARACELI TOMPKINS Room: [address] IN M.R.#: [id number] Admission: 08/03/18 Attend Phys: Josue Crow MD Discharge: 08/12/18 Date of : 44 Report #: [id number] THIS REPORT FOR: //name// CC: Josue Mayer [facility] DATE OF SERVICE: 08/03/2018 REFERRING PHYSICIAN: Josue Crow MD REASON FOR CONSULTATION: Anemia. IMPRESSION: 1. Anemia of chronic disease (suspected). The patient denies any upper or lower gastrointestinal tract complaints. Her labs are not compatible with iron deficiency anemia with a normal iron saturation and ferritin. 2. Status post placement of a drain for an E. coli abscess in 04/2018 with followup necessary for the same. 3. Lower extremity edema and eruptions. 4. Nonischemic cardiomyopathy. 5. Questionable history of chronic liver disease - the patient cannot give a good history to confirm the same. RECOMMENDATIONS: 1. First and foremost, she needs a repeat CT scan of the abdomen and pelvis with oral and IV contrast to evaluate status of her psoas abscess to determine whether or not the drain that she has in place to be removed. 2. For now, there is no clear-cut indication for him to undergo either an upper or lower endoscopy. She states she has had these done within the last couple of years, but she is not really that reliable. 3. If she should develop any issues that would warrant endoscopic evaluation or her CT scan suggests there is anything of concern within her upper or lower GI tract, we can certainly proceed with the same while she is in the hospital. 4. In addition, I will check some labs to evaluate this history of hepatitis C with possible liver disease. I do not see anything worrisome found on her liver on CT scan that was done this summer. 5. Discussed the present plan with the patient as well and she is agreeable to the same. HISTORY OF PRESENT ILLNESS: The patient is a 78-year-old white female who was referred to us for evaluation of anemia. She is not the best of historians and her memory is not all that great. I retrieved information I could from her, but also from her records. She has a history of a [place] [id number] CONSULTATION Name: ARACELI TOMPKINS Room: [address]#: [id number] Admission: 08/03/18 Attend Phys: Josue Crow MD Discharge: 08/12/18 Date of : 42 Report #: [id number] has had problems with complicated infection, which required placement of a drain earlier this summer. It is hard to know whether or not that has been followed up on because the patient is not the most reliable with regards to the same. In any event, we are asked to see her for her complaints. It is felt that her nonischemic cardiomyopathy is related to chemotherapy that she did undergo years ago. She has an ICD in place as well. She denies any complaints referable to her upper or lower GI tract. She states she has had endoscopic studies of her upper and lower GI tract in the recent past in [place], but we did not find any records regarding the same. She has been in the hospital for further evaluation and treatment. ALLERGIES: SULFA, PREDNISONE, and DIGOXIN. MEDICATIONS: Tylenol, carvedilol, Questran, Colace, iron, Lasix, [place], lisinopril, Remeron, omeprazole, magnesium, potassium, probiotic, and Requip. PAST MEDICAL AND SURGICAL HISTORY: Remarkable for nonischemic cardiomyopathy as mentioned above, history with congestive heart failure. She has chronic kidney disease, potential history of hepatitis C, but she is not really sure of the same; history of remote breast cancer, which she underwent surgical intervention for the same, diabetes. She has had previous ankle surgeries, breast reconstruction, cholecystectomy, laminectomy, liver biopsy, right mastectomy, partial hysterectomy. There is some question that she had a bone marrow transplant as well. This is all routine. This is all got from the records. I cannot verify all this. SOCIAL HISTORY: The patient is a lifelong nonsmoker. She does not drink alcohol. She has history of remote drug use. PHYSICAL EXAMINATION: GENERAL: Revealed an ill-appearing 78-year-old white female who is awake and alert. CARDIOPULMONARY: Revealed a regular rate and rhythm. LUNGS: Clear. ABDOMEN: Soft and nontender. I cannot really appreciate hepatosplenomegaly or masses. LABORATORY DATA: From 08/03 revealed a white count of 4.2, hemoglobin 9.1, platelet count 111,000, MCV is 94.6 and RDW is 19.7. Her thrombocytopenia suggests that she may have occult liver disease. Sodium 146, potassium 2.8, chloride 108, bicarbonate is 33, BUN is 7, creatinine 0.7, total bilirubin 0.4, alkaline phosphatase 181, AST is 54, ALT is 13. Her albumin is 1.6. DISCUSSION: At the present time, there is nothing to indicate she has overt GI bleeding. We will proceed with CT scan of the abdomen and pelvis and follow her [address] [place] [address] CONSULTATION Name: ARACELI TOMPKINS Room: [address] IN ..#: [id number] Admission: 08/03/18 Attend Phys: Josue Crow MD Discharge: 08/12/18 Date of : 42 Report #: [id number] while she in the hospital. We will make further recommendations during hospital stay. <ELECTRONICALLY SIGNED> By: Emery Ramirez DO 08/15/18 1350 [id number] Ramirez DO /nt
== END 2018-08-12 14:20 | DRG 853 ==
LOC: M.ERS 11:40 → M.2W 13:29 → M.TBA-ER 13:29 → M.2W 14:23
PROVIDERS: Internal Medicine; Internal Medicine Cardiovascular Disease; Internal Medicine Gastroenterology; Personal Emergency Response Attendant; ADMIT Internal Medicine
PROC: 0QB03ZX Excision of Lumbar Vertebra, Percutaneous Approach, Diagnostic (ICD-10-PCS; 2018-08-07)
PROC: 05HY33Z Insertion of Infusion Device into Upper Vein, Percutaneous Approach (ICD-10-PCS; principal; 2018-08-08)
PROC: 0DJ08ZZ Inspection of Upper Intestinal Tract, Via Natural or Artificial Opening Endoscopic (ICD-10-PCS; 2018-08-09)
DX: A41.51 Sepsis due to Escherichia coli [E. coli] (principal); E43 Unspecified severe protein-calorie malnutrition; I50.43 Acute on chronic combined systolic (congestive) and diastolic (congestive) heart failure; K68.12 Psoas muscle abscess; S32.019A Unspecified fracture of first lumbar vertebra, initial encounter for closed fracture; I42.9 Cardiomyopathy, unspecified; I13.0 Hypertensive heart and chronic kidney disease with heart failure and stage 1 through stage 4 chronic kidney disease, or unspecified chronic kidney disease; L02.91 Cutaneous abscess, unspecified; I85.00 Esophageal varices without bleeding; N39.0 Urinary tract infection, site not specified; Z94.81 Bone marrow transplant status; N18.9 Chronic kidney disease, unspecified; E78.5 Hyperlipidemia, unspecified; E11.22 Type 2 diabetes mellitus with diabetic chronic kidney disease; I27.20 Pulmonary hypertension, unspecified; D50.9 Iron deficiency anemia, unspecified; I25.10 Atherosclerotic heart disease of native coronary artery without angina pectoris; B19.20 Unspecified viral hepatitis C without hepatic coma; Z85.3 Personal history of malignant neoplasm of breast; Z90.49 Acquired absence of other specified parts of digestive tract; Z90.710 Acquired absence of both cervix and uterus; Z95.0 Presence of cardiac pacemaker; Z86.14 Personal history of Methicillin resistant Staphylococcus aureus infection; Z90.11 Acquired absence of right breast and nipple; Z88.2 Allergy status to sulfonamides; Z88.8 Allergy status to other drugs, medicaments and biological substances; Z79.82 Long term (current) use of aspirin; Z79.899 Other long term (current) drug therapy

== ENCOUNTER → 2018-08-27 | Outpatient (CLI) | payer MEDICARE, OTHER ==
[~2018-08-27] MED LIST changes: +DOXYCYCLINE 10100 MG PO; +FOLIC ACID1 MG PO; +IRON325 PO; +LASIX 40 MG TAB40 M1 PO; +OMEPRAZOLE20 M2 PO; +PHOSPHA 250 NE250 MG PO; +POTASSIUM20 PO; +PRINIVIL10 MG PO; +REMERON15 M2 PO; +TYLENOL325 MG PO
[2018-08-27 11:41] LABS: CALCIUM 8.1 mg/dL (8.5-10.1); CREATININE 0.8 mg/dL (0.6-1.3)
== END ==
LOC: M.LAB 11:01
PROVIDERS: Nurse Practitioner Family
DX: I50.32 Chronic diastolic (congestive) heart failure (principal)

== ENCOUNTER 2019-09-22 17:27 | Inpatient (IN) | payer MEDICARE, OTHER ==
[~2019-09-22] VITALS: Ht 154.9 cm; Wt 52.2 kg
--- NOTE | ~2019-09-22 | CON ---
[address] [address] CONSULTATION Name: ARACELI TOMPKINS Room: [address] IN M.R.#: [id number] Admission: 09/22/19 Attend Phys: Jonathan Ma MD Discharge: Date of : 42 Report #: [id number] THIS REPORT FOR: //name// CC: Jonathan Portillo MD DATE OF SERVICE: 09/23/2019 HEMATOLOGY/ONCOLOGY CONSULTATION PRIMARY CARE PHYSICIAN: Nirali Walden DO REASON FOR CONSULTATION: Iron deficiency anemia. HISTORY OF PRESENT ILLNESS: The patient is a 79-year-old female who is currently admitted at [facility] with severe anemia. The patient herself is a very good historian. She informs me that she was diagnosed with breast cancer back in 1987, at that time with the right breast underwent mastectomy and lymph node dissection. She did require chemotherapy and radiation therapy. She calls it stage 4, which has spread to the bone, spine, the vertebrae, and also to the right cervical lymph nodes. She had radiation down to the area, which did have some capillarity there. 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 She again was little vague. She was unclear whether she was a triple negative or estrogen positive disease at that time. She feels that she is in remission for more than 30 years now. She did also acquire hepatitis C in the process of the bone marrow transplant at [facility]. She has tried treatment with Harvoni back in 2014, which per patient was unsuccessful. She is in the process of considering newer agents with the help of parking enforcement manager during this hospitalization, which she was interested in followup as an outpatient. She denies any blood per rectum. Per patient, she felt that she did have occasionally noticed some black mucousy stools on daily basis. She has tried oral iron tablets, which causes her to have some constipation issues. The patient currently is also on antibiotics for her pneumonia. Currently, EGD and colonoscopy are kept on hold. She did not require any blood transfusion so far. There was also some concern for vaginal bleeding and she had an ultrasound of the transvaginal/pelvic ultrasound. She has not seen a venue coordinator so far. She has noticed this going on for 1-2 months. She did receive IV iron Venofer one dose so far. She denies any craving for ice chips or dizziness or lightheadedness. She does, however, admit to having some black dark stools as mentioned above. She does admit to having decreased energy levels. She does admit to sleeping multiple hours in the day. PAST MEDICAL HISTORY: As mentioned, hepatitis C, breast cancer questionable metastatic to the neck and also bone, congestive heart failure, [place] [address] CONSULTATION Name: ARACELI TOMPKINS Room: [address] IN [facility]#: [id number] Admission: 09/22/19 Attend Phys: Jonathan Ma MD Discharge: Date of : 42 Report #: [id number] Clostridium difficile colitis in the past and Escherichia coli and MRSA. ALLERGIES: INCLUDE SULFA AND DIGOXIN. PAST SURGICAL HISTORY: Includes hysterectomy, left hip surgery, fractured ankle, defibrillator pacemaker removed and also a right mastectomy with axillary lymph node dissection with a TRAM flap reconstruction. FAMILY HISTORY: Denies any cancers in the family. SOCIAL HISTORY: She lives on her own. Denies any alcohol, drug or tobacco use. CURRENT MEDICATIONS: In the hospital include Omnicef, azithromycin, lactobacillus, furosemide, Protonix, Requip, diphenhydramine, mirtazapine, Coreg, calcium, Tums, and guaifenesin. LABORATORY DATA: WBC 11.0, hemoglobin 8.8, hematocrit 26.1, MCV 87.4, platelets are 134 with absolute neutrophil count of 9.2 and lymphocytes are 1.2. INR is 1.1, PT 10.8. Sodium 142, potassium 3.7, chloride 105, bicarbonate 30, anion gap 7, BUN 16, creatinine 1.1, glucose 176, calcium 8.3, bilirubin 0.6, AST 47, ALT 26, alkaline phosphatase 96. ProBNP is 1728, total protein 6.9, albumin 3.1, lipase 89. Iron studies done during this hospitalization did reveal iron percentage saturation low at 6%, TIBC 254 and iron 14. Alpha fetoprotein is 2.8. Serologies: Influenza is negative. Urine showed trace protein with trace blood with trace leukocyte esterase. IMAGING STUDIES: Chest x-ray revealed mild interstitial changes, reflecting possible fibrosis or possible pneumonitis. A transvaginal/pelvic ultrasound did reveal status post hysterectomy and oophorectomy with no significant abnormalities with urinary bladder distention. Ultrasound of the abdomen done showed liver is normal in size with no focal lesions. Spleen is normal in appearance. PHYSICAL EXAMINATION: VITAL SIGNS: Temperature of 36.8, heart rate 97, respiratory rate 18, and blood pressure is 128/74. GENERAL: No acute distress. HEENT: Mucous membranes are moist, anicteric, atraumatic. Oropharynx is clear with no evidence of mucositis. NECK: Supple. The patient does have some post-radiation changes and skin thickening in the right neck area with capillarity. BREASTS: Right breast has a TRAM flap reconstruction with left breast is soft with no evidence of any palpable [place] [address] CONSULTATION Name: TOMPKINSARACELI FISH Orquidea Room: [address] IN .R.#: [id number] Admission: 09/22/19 Attend Phys: Jonathan Ma MD Discharge: Date of : 42 Report #: [id number] LUNGS: Decreased breath sounds in the bases. HEART: S1, S2. No murmur, rub or gallop. ABDOMEN: Soft, nontender, nondistended. EXTREMITIES: No edema, cyanosis or clubbing. NEUROLOGICAL: Alert, oriented x 4, nonfocal in nature. Cranial nerves 2-12 are grossly intact. ASSESSMENT AND PLAN: The patient is a 79-year-old with a history of metastatic breast cancer dating back to 1987, status post mastectomy and chemoradiation and also a bone marrow transplant at that time with a history of hepatitis C, currently admitted with severe iron deficiency anemia. Anemia is most likely suggestive of iron deficiency with currently received one dose of Venofer. She will need more IV iron infusions. In the interim, we will check a soluble transferrin and ferritin levels. She also had some concern for thrombocytopenia, which could be secondary to her hepatitis C. We will check B12 and folate levels. She is currently in the process of establishing with GI for possible consideration of hepatitis C at this point. Regarding her breast cancer, again unclear details, but would be curious in getting records from [facility]. The patient was interested in followup in our clinic and would make arrangements for IV iron infusions and also follow up on her breast cancer. We will try to obtain records. In the interim, we will check a tumor marker CA 27-29. I did discuss this in detail with her and information for followup would be arranged once the patient discharged from the hospital. She is currently on antibiotics for possible concern for pneumonia and plans to proceed with an EGD and colonoscopy soon. As mentioned, the patient is unable to tolerate oral iron due to constipation and would arrange for more IV iron. She also would need a venue coordinator evaluation, especially with her vaginal bleeding even after her hysterectomy. By: 41 49Tejal Hayden MD /nt
--- NOTE | ~2019-09-22 | PROC ---
[address] [address] PROCEDURE REPORT Name: ARACELI TOMPKINS Room: [address] IN .R.#: [id number] Admission: 09/22/19 Attend Phys: Jonathan Ma MD Discharge: 09/25/19 Date of : 42 Report #: [id number] THIS REPORT FOR: //name// For GI report, please see the Provation report in Perceptive 7 content. By: 0946Medical Records Staff CARMEN /KURT
[2019-09-22 17:41] VITALS: BP 129/75
[2019-09-22] MEDS ORDERED: CARVEDILOL25 MG PO (17:46)
[2019-09-22] MEDS ORDERED: REQUIP XL2 MG PO (17:47)
[2019-09-22] MEDS ORDERED: PANTOPRAZOLE SO40 M1 PO (17:47)
[2019-09-22] MEDS ORDERED: FUROSEMIDE 40 M40 MG PO (17:47)
[2019-09-22] MEDS ORDERED: ENTRESTO 97 MG1 EACH PO (17:47)
[2019-09-22] MEDS ORDERED: CALCIUM500 MG PO (17:48)
[2019-09-22] MEDS ORDERED: REMERON 30 MG T30 MG PO (17:48)
[2019-09-22] MEDS ORDERED: KLOR-CON M2020 MEQ PO (17:48)
[2019-09-22] MEDS ORDERED: FLORANEX TABLE1 EACH PO (17:48)
[2019-09-22] MEDS ORDERED: [UNRECOGNIZED DRUG - OTHER] PO (17:50)
[2019-09-22 17:56] LABS: URINE BILIRUBIN NEGATIVE (Negative); URINE BLOOD TRACE (Negative); URINE CLARITY CLEAR; URINE COLOR YELLOW; URINE GLUCOSE-RANDOM 1+ (Negative); URINE KETONES NEGATIVE (Negative); URINE LEUKOCYTES-REFLEX TRACE (Negative); URINE NITRITE-REFLEX NEGATIVE (Negative); URINE PROTEIN TRACE (Negative); URINE UROBILINOGEN 0.2 E.U./dl (0.2-1.0)
[2019-09-22 18:05] LABS: CASTS None Seen /LPF (None Seen); CRYSTALS None Seen /LPF (None Seen); SQUAMOUS 0-3 Few /LPF (0-3); URINE RBC 0-2 Rare /HPF (0-2); URINE WBC-REFLEX 6-15 Few /HPF (0-5)
[2019-09-22 18:07] LABS: ABSOLUTE LYMPHOCYTES 1.2 thou/uL (0.8-5.3); ABSOLUTE MONOCYTES 0.6 thou/uL (0.0-1.2); ABSOLUTE NEUTROPHILS 9.2 thou/uL (1.6-8.1); BASOPHILS 0.1 %; EOSINOPHILS 0.2 %; HEMATOCRIT 26.1 % (37.0-47.0); HEMOGLOBIN 8.8 gm/dL (12.0-15.0); LYMPHOCYTES 10.9 %; MCH 29.3 pg (26.0-34.0); MCHC 33.5 g/dL (28.0-37.0); MCV 87.4 fL (80.0-100.0); MONOCYTES 5.8 %; MPV 6.9 fl. (7.2-11.1); NUCLEATED RBCS 0 /100WBC; PLATELET COUNT* 134 thou/uL (150-400); RBC 2.99 mil/uL (4.20-5.00); RDW-CV 15.6 % (10.5-14.5)
[2019-09-22 18:15] LABS: INR 1.1; PROTIME 10.8 Seconds (9.20-11.50)
[2019-09-22 18:17] LABS: CALCIUM 8.3 mg/dL (8.5-10.1); CREATININE 1.1 mg/dL (0.6-1.3); POTASSIUM 3.7 mmol/L (3.5-5.1)
[2019-09-22 18:27] LABS: ALBUMIN 3.1 g/dL (3.4-5.0); TOTAL BILIRUBIN 0.6 mg/dL (<0.1-1.0); TOTAL PROTEIN 6.9 g/dL (6.4-8.2)
[2019-09-22 18:29] LABS: INFLUENZA A ANTIGEN Negative (Negative); INFLUENZA B ANTIGEN Negative (Negative)
[2019-09-22 20:25] VITALS: BP 101/51
[2019-09-22 20:40] VITALS: BP 109/40
[2019-09-22] MEDS ORDERED: BENADRYL ALLERG25 MG PO (20:57)
[2019-09-22 23:11] VITALS: BP 100/50
[2019-09-23 04:28] VITALS: BP 113/48
[2019-09-23 08:00] VITALS: BP 114/57
--- NOTE | 2019-09-23 09:22 | EKG ---
[place] [address] ELECTROCARDIOGRAM REPORT Name: ARACELI TOMPKINS Room: [address] ADM IN [facility].#: [id number] Admission: 09/22/19 Attend Phys: Jonathan Ma MD Discharge: Date of : 42 Report #: [id number] THIS REPORT FOR: //name// [facility] ED Test Date: 2019-09-22 Test Time: 17:43:22 Pat Name: ARACELI TOMPKINS Department: Room: [facility] Gender: F Space Physicist: : 1940 Requested By: Flash Sevilla Order Number: [id number] MD: Ernie Houser Measurements Intervals [place] Rate: 107 P: 72 MO: 179 QRS: -51 QRSD: 119 T: 110 QT: 328 QTc: 438 Interpretive Statements Sinus tachycardia Multiple ventricular premature complexes nonspecific st changes left axis Baseline wander in lead(s) III Compared to ECG 10/14/2018 20:19:27 Ventricular premature complex(es) now present Myocardial infarct finding still present Electronically Signed On 09-23-2019 9:21:46 BARREL LOADER by Ernie Houser [email or web address] <ELECTRONICALLY SIGNED> By: Ernie Houser MD, [facility] 09/23/19 0921 1743 1743 Ernie Houser MD, [facility] /EPI
[2019-09-23 09:46] LABS: % SATURATION 6 % (20-39); IRON 14 ug/dL (50-175)
[2019-09-23 12:00] VITALS: BP 136/66
[2019-09-23 16:00] VITALS: BP 128/74
[2019-09-23 20:00] VITALS: BP 122/64
[2019-09-23 23:43] VITALS: BP 148/74
[2019-09-24 04:10] VITALS: BP 139/74
[2019-09-24 05:02] LABS: ABSOLUTE EOSINOPHILS 0.1 thou/uL (0.0-0.7); ABSOLUTE LYMPHOCYTES 0.8 thou/uL (0.8-5.3); ABSOLUTE MONOCYTES 0.6 thou/uL (0.0-1.2); ABSOLUTE NEUTROPHILS 4.1 thou/uL (1.6-8.1); BASOPHILS 0.4 %; HEMATOCRIT 23.3 % (37.0-47.0); LYMPHOCYTES 14.4 %; MCHC 34.2 g/dL (28.0-37.0); MCV 87.7 fL (80.0-100.0); MONOCYTES 9.8 %; MPV 7.4 fl. (7.2-11.1); NUCLEATED RBCS 0 /100WBC; PLATELET COUNT* 115 thou/uL (150-400); POLYS 73.4 %; RBC 2.66 mil/uL (4.20-5.00); RDW-CV 15.3 % (10.5-14.5); WBC 5.6 thou/uL (4.0-11.0)
[2019-09-24 08:30] VITALS: BP 142/77
[2019-09-24 12:00] VITALS: BP 119/65; BP 129/46
[2019-09-24 16:00] VITALS: BP 144/88
[2019-09-24 20:00] VITALS: BP 126/62
[2019-09-25] VITALS: BP 117/57
[2019-09-25 04:00] VITALS: BP 109/63
[2019-09-25 05:51] LABS: ALBUMIN 2.6 g/dL (3.4-5.0); CALCIUM 7.5 mg/dL (8.5-10.1); CREATININE 0.8 mg/dL (0.6-1.3); TOTAL BILIRUBIN 0.4 mg/dL (<0.1-1.0); TOTAL PROTEIN 6.1 g/dL (6.4-8.2)
[2019-09-25 08:00] VITALS: BP 137/73
[2019-09-25 09:00] VITALS: BP 109/63
[2019-09-25] MEDS ORDERED: CEFDINIR300 MG PO (10:57)
[2019-09-25] MEDS ORDERED: VANCOCIN 125 M125 M1 PO (11:27)
[2019-09-25 12:23] VITALS: BP 113/62
[2019-09-25 13:16] VITALS: BP 113/62
[2019-09-27 13:25] VITALS: BP 113/62
[2019-09-27 13:46] VITALS: BP 113/62
[2019-09-28 12:07] LABS: HCV QUANT BY PCR 180000 IU/mL (())
--- NOTE | 2019-09-30 14:29 | CON ---
[address] [address] CONSULTATION Name: ARACELI TOMPKINS Room: [address] IN .R.#: [id number] Admission: 09/22/19 Attend Phys: Jonathan Ma MD Discharge: 09/25/19 Date of : 42 Report #: [id number] THIS REPORT FOR: //name// CC: Jonathan Walden DO DICTATED BY: Gayatri Triana [facility] DATE OF SERVICE: 09/23/2019 Please note at the time of this dictation, the patient was seen and physically examined by myself. REASON FOR CONSULTATION: Acute anemia. HISTORY OF PRESENT ILLNESS: This is a pleasant 79-year-old female who presented to the Emergency Room with having extreme anemia that she was told by her PCP. On talking with her daughter and the patient, she states since 07/02, she has been sleeping a lot more, has had a decreased energy and just has not felt very good. She has been sleeping 21 hours a day. She has been noticing that when she has a bowel movement and in between, she will notice this black mucousy substance and notices that her stools are little bit darker than normal as well. She states otherwise her bowels move usually on a daily basis. The patient denies any nausea, vomiting, any acid reflux. She states she is not having any abdominal pain. It is just the overall weakness and fatigue, having no energy and that she has been noticing this dark mucus-like substance that she will find randomly and she has no idea that she has had this problem. The patient also, prior to admission, had been running a fever as well that was noted and that she was feeling a little bit more short of breath as well. The patient did undergo an EGD back in 08/2018, it showed some small varices in the lower third of the esophagus with a recall in 1 year. The patient does also have a past medical history of having hepatitis C in which she was treated with [place] [facility] in 2014, which was unsuccessful. At that time, there was no other treatment option, but there is now and the patient is interested in pursuing this regarding her hep C. The patient did get hepatitis C from a blood transfusion when she was at [facility] dealing with breast cancer with metastasis into her neck at that time back in the mid 80s. ALLERGIES: SULFA, DIGOXIN. MEDICATIONS: From home include carvedilol, Requip, Protonix, Entresto, furosemide, potassium, Floranex, Remeron, calcium and Nufola capsule. PAST MEDICAL HISTORY: History of hepatitis C, breast cancer with mets to her neck, CHF, history of C. diff, history [place] [address] CONSULTATION Name: ARACELI TOMPKINS Room: [address] IN ..#: [id number] Admission: 09/22/19 Attend Phys: Jonathan Ma MD Discharge: 09/25/19 Date of : 42 Report #: [id number] PAST SURGICAL HISTORY: Hysterectomy, left hip surgery, fractured ankles, defibrillator pacemaker were removed. FAMILY HISTORY: Negative. SOCIAL HISTORY: The patient lives on her own. Denies any alcohol, tobacco or illegal drug use. REVIEW OF SYSTEMS: Twelve-point review of systems is essentially negative except what is mentioned in the HPI. PHYSICAL EXAMINATION: VITAL SIGNS: Temperature 37.4, pulse 80, respirations 19, blood pressure 113/48. HEART: Regular rate and rhythm with murmur noted. LUNGS: Diminished, but clear. ABDOMEN: Soft, positive bowel sounds in all 4 quadrants with no masses or tenderness noted. LABORATORY DATA: Hemoglobin 8.8 on admission, she is down to 7.6; white count is 11, platelets are 134. BNP was 1725. GFR is 48. PT is 10.8, INR is 1.1. BUN is 16, creatinine is 1.1. Total bilirubin 0.6, alkaline phosphatase 96, ALT 26, AST is 47. Chest x-ray shows bilateral infiltrates. Urine positive. Iron is 30, TIBC is 128. IMPRESSION: 1. Anemia. 2. HCV with small varices. HCV contracted after blood transfusion in the 80s. 3. Thrombocytopenia. 4. Leukocytosis. 5. Pneumonia. 6. Urinary tract infection. 7. Chronic kidney disease. 8. History of Clostridium difficile 9. Personal history of breast cancer. PLAN: 1. We will wait until the patient stronger and receives another day or two of antibiotics for her pneumonia and urinary tract infection. 2. We will obtain an abdominal ultrasound with Dopplers to evaluate her liver. 3. The patient will need an EGD and colonoscopy for surveillance of her varices and her anemia as well as a colonoscopy and the mucusy [id number] stools that she is having. 4. Labs, CBC, CMP and AFP in the a.m. 5. We will consult Hematology. [address] [address] CONSULTATION Name: ARCAELI TOMPKINS Room: [address] IN ..#: [id number] Admission: 09/22/19 Attend Phys: Jonathan Ma MD Discharge: 09/25/19 Date of : 42 Report #: [id number] 6. IV infusions, intolerable to oral causing severe constipation. 7. Timing of endoscopies will depend on how the patient is doing with her overall breathing. Thank you for allowing us to participate in this patient's care. Please do not hesitate to call with any questions in regard to this consult. <ELECTRONICALLY SIGNED> By: Corby Miller MD 09/30/19 1429 1029 [id number] Miller MD /nt
== END 2019-09-25 14:00 | disposition home health service (06) | DRG 368 ==
LOC: M.ERS 17:27 → M.2W 18:29 → M.TBA-ER 18:29 → M.2W 18:29
PROVIDERS: Emergency Medicine; Internal Medicine Gastroenterology; Nurse Practitioner Adult Health; ADMIT Internal Medicine
PROC: 0DJ08ZZ Inspection of Upper Intestinal Tract, Via Natural or Artificial Opening Endoscopic (ICD-10-PCS; principal; 2019-09-25)
PROC: 0DBM8ZZ Excision of Descending Colon, Via Natural or Artificial Opening Endoscopic (ICD-10-PCS; 2019-09-25)
PROC: 0DBM8ZX Excision of Descending Colon, Via Natural or Artificial Opening Endoscopic, Diagnostic (ICD-10-PCS; 2019-09-25)
PROC: 0DBN8ZX Excision of Sigmoid Colon, Via Natural or Artificial Opening Endoscopic, Diagnostic (ICD-10-PCS; 2019-09-25)
PROC: 0DBP8ZX Excision of Rectum, Via Natural or Artificial Opening Endoscopic, Diagnostic (ICD-10-PCS; 2019-09-25)
DX: I85.01 Esophageal varices with bleeding (principal); J15.9 Unspecified bacterial pneumonia; N39.0 Urinary tract infection, site not specified; I50.42 Chronic combined systolic (congestive) and diastolic (congestive) heart failure; E44.1 Mild protein-calorie malnutrition; K76.6 Portal hypertension; Z94.81 Bone marrow transplant status; I13.0 Hypertensive heart and chronic kidney disease with heart failure and stage 1 through stage 4 chronic kidney disease, or unspecified chronic kidney disease; B19.20 Unspecified viral hepatitis C without hepatic coma; N93.9 Abnormal uterine and vaginal bleeding, unspecified; D50.9 Iron deficiency anemia, unspecified; E11.22 Type 2 diabetes mellitus with diabetic chronic kidney disease; I27.20 Pulmonary hypertension, unspecified; K64.4 Residual hemorrhoidal skin tags; K52.9 Noninfective gastroenteritis and colitis, unspecified; K31.89 Other diseases of stomach and duodenum; K44.9 Diaphragmatic hernia without obstruction or gangrene; D72.829 Elevated white blood cell count, unspecified; D69.6 Thrombocytopenia, unspecified; N18.9 Chronic kidney disease, unspecified; Z82.49 Family history of ischemic heart disease and other diseases of the circulatory system; Z83.6 Family history of other diseases of the respiratory system; Z90.11 Acquired absence of right breast and nipple; Z88.2 Allergy status to sulfonamides; Z86.19 Personal history of other infectious and parasitic diseases; Z85.3 Personal history of malignant neoplasm of breast; Z87.81 Personal history of (healed) traumatic fracture; Z68.21 Body mass index [BMI] 21.0-21.9, adult; Z86.010 Personal history of colon polyps; Z90.49 Acquired absence of other specified parts of digestive tract; Z90.710 Acquired absence of both cervix and uterus; Z95.0 Presence of cardiac pacemaker; Z86.14 Personal history of Methicillin resistant Staphylococcus aureus infection; Z88.8 Allergy status to other drugs, medicaments and biological substances; Z79.899 Other long term (current) drug therapy

== ENCOUNTER 2019-10-06 17:45 | Inpatient (IN) | payer MEDICARE, OTHER ==
[~2019-10-06] VITALS: Ht 154.9 cm; Wt 55.3 kg
[~2019-10-06 17:45] MED LIST changes: +BENADRYL ALLERG25 MG PO; +CALCIUM500 MG PO; +CARVEDILOL25 MG PO; +CEFDINIR300 MG PO; +FLORANEX TABLE1 EACH PO; +FUROSEMIDE 40 M40 MG PO; +KLOR-CON M2020 MEQ PO; +REMERON 30 MG T30 MG PO; +REQUIP XL2 MG PO; +VANCOCIN 125 M125 M1 PO; +[UNRECOGNIZED DRUG - OTHER] PO
[2019-10-06 18:01] VITALS: BP 152/74
[2019-10-06 18:27] LABS: ABSOLUTE BASOPHILS 0.1 thou/uL (0.0-0.2); ABSOLUTE EOSINOPHILS 0.2 thou/uL (0.0-0.7); ABSOLUTE LYMPHOCYTES 1.3 thou/uL (0.8-5.3); ABSOLUTE MONOCYTES 0.4 thou/uL (0.0-1.2); ABSOLUTE NEUTROPHILS 1.9 thou/uL (1.6-8.1); BASOPHILS 1.8 %; EOSINOPHILS 5.6 %; HEMATOCRIT 29.3 % (37.0-47.0); HEMOGLOBIN 9.9 gm/dL (12.0-15.0); LYMPHOCYTES 34.8 %; MCH 30.3 pg (26.0-34.0); MCHC 33.9 g/dL (28.0-37.0); MCV 89.5 fL (80.0-100.0); MONOCYTES 9.7 %; MPV 7.5 fl. (7.2-11.1); NUCLEATED RBCS 0 /100WBC; PLATELET COUNT* 170 thou/uL (150-400); POLYS 48.1 %; RBC 3.27 mil/uL (4.20-5.00); RDW-CV 18.1 % (10.5-14.5); WBC 3.9 thou/uL (4.0-11.0)
[2019-10-06 18:36] LABS: CALCIUM 8.7 mg/dL (8.5-10.1); CREATININE 0.8 mg/dL (0.6-1.3); POTASSIUM 3.9 mmol/L (3.5-5.1)
[2019-10-06 18:40] LABS: ALBUMIN 3.1 g/dL (3.4-5.0); TOTAL BILIRUBIN 0.5 mg/dL (<0.1-1.0)
[2019-10-06 19:51] LABS: URINE BILIRUBIN NEGATIVE (Negative); URINE BLOOD NEGATIVE (Negative); URINE CLARITY CLEAR; URINE COLOR YELLOW; URINE GLUCOSE-RANDOM NEGATIVE (Negative); URINE KETONES NEGATIVE (Negative); URINE LEUKOCYTES-REFLEX NEGATIVE (Negative); URINE NITRITE-REFLEX NEGATIVE (Negative); URINE PROTEIN NEGATIVE (Negative); URINE SPECIFIC GRAVITY <= 1.005 (1.005-1.030); URINE UROBILINOGEN 0.2 E.U./dl (0.2-1.0)
[2019-10-06 19:52] VITALS: BP 147/87
--- NOTE | 2019-10-07 05:35 | NUR ---
PT ADMITTED TO 309 FROM ER @2009. ALERT AND ORIENTED. VSS ON RA. ADMISISON HX AND ASSESSMENT COMPLETED. DTRS AT BEDSIDE UPON ADMISISON. HOME RECONCILED AND RESTARTED. PAIN MED GIVEN THIS SHIFT. RELIEVE NOTED. CDIFF PRECAUTIONS IN PLACE. PENDING CDIFF RECIEPT AND RESULT. NO BM/DIARRHEA THIS SHIFT. FALL PRECAUTIONS I PLACE. CALL LIGHT WITHIN REACH. HOURLY ROUNDINGS MADE. WILL CONTINUE TO MONITOR.
[2019-10-07 08:00] VITALS: BP 132/54
--- NOTE | 2019-10-07 16:13 | NUR ---
PATIENT UP TO BSC WITH ASSISTANCE. PATIENT REQUIRING MORPHINE PRN Q4 FOR ABD PAIN. IVF AND SCHED ABX INFUSED ORDERED. PATIENT HAD A BM THIS BUT IT WAS MOXED WITH URINE. SPECIMEN DISCARDED, SPOKE WITH INFECTION CONTROL NURSE AND OK TO USE SPECIMEN FOR CDIFF MIXED WITH URINE, WILL SEND NEXT SPECIMEN. FAIR APPETITE.
--- NOTE | 2019-10-07 16:26 | NUR ---
Pt recently hospitalized and readmitted. Pt live at home alone. Pt has cane, walker. Pt has hx of [employer] and [facility]. Pt has hx of [facility]. Pt has dtrs; SW will follow up to discuss safe dc planning and assist as needed.
[2019-10-07 17:24] VITALS: BP 151/76
[2019-10-07 20:00] VITALS: BP 160/87
[2019-10-08] VITALS: BP 125/68
[2019-10-08 05:02] LABS: HEMATOCRIT 28.9 % (37.0-47.0); HEMOGLOBIN 9.8 gm/dL (12.0-15.0); MCH 30.5 pg (26.0-34.0); MCHC 33.9 g/dL (28.0-37.0); MCV 89.8 fL (80.0-100.0); MPV 7.3 fl. (7.2-11.1); RBC 3.22 mil/uL (4.20-5.00); WBC 3.9 thou/uL (4.0-11.0)
[2019-10-08 05:19] LABS: CALCIUM 8.6 mg/dL (8.5-10.1); CREATININE 0.8 mg/dL (0.6-1.3); MAGNESIUM 1.6 mg/dL (1.8-2.4); POTASSIUM 3.6 mmol/L (3.5-5.1); TOTAL BILIRUBIN 0.6 mg/dL (<0.1-1.0); TOTAL PROTEIN 6.4 g/dL (6.4-8.2)
--- NOTE | 2019-10-08 05:33 | NUR ---
PT ALERT AND ORIENTED. SLEPT OFF AND ON THIS SHIFT. HAD ABOUT 3 EPISODES OF VOMITTING. ZOFRAN GIVEN PER EMAR. PAIN MED GIVEN PER EMAR. PT SATTING IN THE 87-89s. PLACED ON 2L NC. O2 SAT 98% ON 2L. ISOLATION PRECAUTION IN PLACE. CALL LIGHT WITHIN REACH. HOURLY ROUNDINGS MADE. DTR TO BRING HOME MED ENTRESTO THIS AM. WILL CONTINUE TO MONITOR.
[2019-10-08 07:30] VITALS: BP 174/99
--- NOTE | 2019-10-08 14:55 | NUR ---
I have reviewed the documentation by NESSA PRESCOTT from 10/08/2019 to 10/08/19, and I concur with it. INGRIS BHATT.
[2019-10-08 16:00] VITALS: BP 103/61
--- NOTE | 2019-10-08 17:15 | NUR ---
PATIENT VOMITED COFFEE GROUND EMESIS THIS AM, DR. MAS WAS NOTIFIED AND CAME TO SEE PATIENT. ORDERS RECEIVED TO PLACE NG TUBE TO LIS, NG PLACED AND KUB CONFIRMED PLACEMENT. PATIENT HAD 250 COFFEE GROUND EMESIS DRAINAGE OUT. IVF AND SCHED ABX REMAINS INFUSING ORDERED. ATIVAN WAS GIVEN ONE TIME PRIOR TO NG TUBE PLACEMENT. PATIENT HAS BEEN SLEEPING SINCE GIVEN BUT IS AROUSABLE AND TALKS TO STAFF. DR. Frederick FROM GI HERE THIS EVENING AND ORDERS TO DC NG TUBE AND MAY HAVE CLEAR LIQUID. NPO AFTER MIDNIGHT. PATIENT TO HAVE EGD IN AM. PATIENT DAUGHTER HERE THIS EVENING AND NOTIFIED. DR. MAS NOTIFIED OF PLAN OF CARE AND NOTIFIED THAT PATIENT STILL SLEEPY FROM ATIVAN.
[2019-10-08 21:00] VITALS: BP 120/66
[2019-10-09 03:49] LABS: HEMATOCRIT 24.6 % (37.0-47.0); HEMOGLOBIN 8.3 gm/dL (12.0-15.0); MCH 30.3 pg (26.0-34.0); MCHC 33.9 g/dL (28.0-37.0); MCV 89.4 fL (80.0-100.0); MPV 6.7 fl. (7.2-11.1); RBC 2.75 mil/uL (4.20-5.00); RDW-CV 18.3 % (10.5-14.5); WBC 4.3 thou/uL (4.0-11.0)
[2019-10-09 04:10] LABS: ALBUMIN 2.5 g/dL (3.4-5.0); CALCIUM 7.5 mg/dL (8.5-10.1); CREATININE 0.8 mg/dL (0.6-1.3); MAGNESIUM 1.9 mg/dL (1.8-2.4); POTASSIUM 3.4 mmol/L (3.5-5.1); TOTAL BILIRUBIN 0.4 mg/dL (<0.1-1.0); TOTAL PROTEIN 5.4 g/dL (6.4-8.2)
--- NOTE | 2019-10-09 06:20 | NUR ---
PATIENT HAS SLEPT MOST OF THE NIGHT. IV FLUIDS CONTINUE TO INFUSE ORDERED. PATIENT HAD NO COMPLAINTS OF PAIN OR NAUSEA. PATIENT HAS BEEN NPO SINCE MIDNIGHT FOR EGD TODAY. WILL CONTINUE TO MONITOR.
[2019-10-09 08:05] VITALS: BP 140/71
[2019-10-09 11:20] VITALS: BP 166/80
[2019-10-09 16:00] VITALS: BP 131/70
--- NOTE | 2019-10-09 17:46 | NUR ---
PATIENT RESTING IN BED. PATIENT IS UP STANDBY ASSIST. PATIENT WENT FOR EGD THIS AM WITHOUT INCIDENT. PATIENT HAS COMPLAINTS OF PAIN TO EPIGASTRIC AREA AFTER TAKING PO MEDICATIONS. PATIENT DENIES ANY PAIN AT THIS TIME. PATIENT DENIES ANY NAUSEA. PATIENT HAD ONE SMALL LOOSE BM THIS AFTERNOON. PATIENT DENIES ANY NEEDS AT THIS TIME. CALL LIGHT WITHIN REACH.
[2019-10-09 20:30] VITALS: BP 148/72
[2019-10-10 04:40] LABS: HEMATOCRIT 26.1 % (37.0-47.0); HEMOGLOBIN 8.8 gm/dL (12.0-15.0); MCH 30.2 pg (26.0-34.0); MCHC 33.6 g/dL (28.0-37.0); MPV 7.3 fl. (7.2-11.1); RBC 2.9 mil/uL (4.20-5.00); RDW-CV 18.1 % (10.5-14.5); WBC 3.3 thou/uL (4.0-11.0)
[2019-10-10 04:50] LABS: CREATININE 0.8 mg/dL (0.6-1.3); MAGNESIUM 1.5 mg/dL (1.8-2.4); POTASSIUM 3.4 mmol/L (3.5-5.1)
--- NOTE | 2019-10-10 05:28 | NUR ---
PATIENT SLEPT MOST OF THE NIGHT. IV REMAINS SALINE LOCKED. PATIENT HAD NO COMPLAINTS OF PAIN OR NAUSEA. PATIENT COULD POSSIBLY DISCHARGE HOME TODAY. WILL CONTINUE TO MONITOR.
[2019-10-10 08:40] VITALS: BP 161/84
[2019-10-10 16:00] VITALS: BP 140/78
--- NOTE | 2019-10-10 17:39 | NUR ---
PATIENT RESTING IN BED. PATIENT IS UP AD ROD TO COMMODE. PATIENT HAD ONE BOWEL MOVEMENT THIS AM. EXCELLENT URINE OUTPUT WITH LASIX. PATIENT HAS BEEN ABLE TO TOLERATE ABOUT 20% OF MEALS WITH NO PAIN OR NAUSEA. PATIENT GIVEN TYLENOL X 1 FOR GENERALIZED DISCOMFORT. PATIENT DENIES ANY NEEDS AT THIS TIME. CALL LIGHT WITHIN REACH.
[2019-10-10 21:44] VITALS: BP 146/78
[2019-10-11 03:59] LABS: HEMATOCRIT 27.7 % (37.0-47.0); HEMOGLOBIN 9.4 gm/dL (12.0-15.0); MCH 30.2 pg (26.0-34.0); MCHC 33.9 g/dL (28.0-37.0); MCV 88.9 fL (80.0-100.0); MPV 7.5 fl. (7.2-11.1); RBC 3.11 mil/uL (4.20-5.00); RDW-CV 18.2 % (10.5-14.5); WBC 2.7 thou/uL (4.0-11.0)
[2019-10-11 04:18] LABS: CALCIUM 7.7 mg/dL (8.5-10.1); CREATININE 0.7 mg/dL (0.6-1.3); MAGNESIUM 1.7 mg/dL (1.8-2.4)
--- NOTE | 2019-10-11 05:23 | NUR ---
PATIENT SLEPT MOST OF THE NIGHT. IV REMAINS SALINE LOCKED. PATIENT WAS GIVEN TYLENOL ONCE FOR EPIGASTIC PAIN WITH GOOD RELIEF. PATIENT IS POSSIBLY GOING HOME TODAY. WILL CONTINUE TO MONITOR.
--- NOTE | 2019-10-11 07:44 | CON ---
[address] [address] CONSULTATION Name: ARACELI TOMPKINS Room: [address] IN M.R.#: [id number] Admission: 10/06/19 Attend Phys: Ace Lowe Discharge: Date of : 44 Report #: [id number] THIS REPORT FOR: //name// cc: Nirali Walden Maggie M. DO THIS REPORT FOR: //name// CC: Ace Power DATE OF SERVICE: 10/08/2019 INFECTIOUS DISEASE CONSULTATION ATTENDING PHYSICIAN: Scott Rodriguez M.D. REASON FOR EVALUATION: Colitis, suspected C. diff. HISTORY OF PRESENT ILLNESS: Chart reviewed, the patient examined. 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 Did undergo evaluation by GI and found to have esophageal varices, hiatal hernia, portal hypertensive gastropathy and also segmented mild inflammation involving the rectum, sigmoid colon, descending colon secondary to colitis. Biopsies apparently are still pending. She returned to the Emergency Room with severe abdominal pain including right upper quadrant. Denied nausea, emesis. Did have some loose stools, found to be anemic at 9.9. CT abdomen and pelvis was performed, which showed pancolitis, question of pseudomembranes. Urinalysis unremarkable. Did have episode of coffee-ground emesis as well. NG has been placed. She is sedated at this point, started empirically on combination therapy with vancomycin as well as metronidazole. ALLERGIES: LISTED TO SULFA, DIGOXIN. CURRENT MEDICATIONS: Include pantoprazole, octreotide, morphine, sacubitril/valsartan combination, hydralazine, ropinirole, p.r.n. ondansetron, mirtazapine, carvedilol, furosemide, lactobacillus. PAST MEDICAL HISTORY: Extensive, history of hepatitis C, breast cancer, cholecystectomy, back surgery, bone marrow transplant in 1987, history of cardiomyopathy with congestive heart failure, advanced liver disease, has a defibrillator, history of C. diff in 2018. SOCIAL HISTORY: Nonsmoker, no ethanol, [place] [address] CONSULTATION Name: CORIBN TOMPKINSKEVIN Heard Room: [address]#: [id number] Admission: 10/06/19 Attend Phys: Ace Lowe Discharge: Date of : 42 Report #: [id number] FAMILY HISTORY: Noncontributory. REVIEW OF SYSTEMS: Not obtainable. PHYSICAL EXAMINATION: GENERAL: She has just been given some benzodiazepine. She is sedated. She is in [id number]-rk-[id number] distress pending NG placement. She does appear pale. She is not diaphoretic. VITAL SIGNS: Temperature 97.8, pulse 95, respirations 18, blood pressure is 174/99. SKIN: Warm, dry, no rashes. HEENT: Normocephalic. Extraocular muscles intact. NECK: Supple. LUNGS: Few scattered crackles at the bases. HEART: Regular. Borderline tachycardic. I do not appreciate a murmur. ABDOMEN: Soft. There are no peritoneal signs. She is not grimacing to palpation. GENITOURINARY: Deferred. RECTAL: Deferred. LABORATORY DATA: Initial CBC: White count of 3.9, H and H 9.9 and 29.3, platelets of 170. Differential unremarkable. Electrolytes: Sodium 141, potassium 3.9, chloride 103, bicarbonate is 31, anion gap of 7, BUN and creatinine 11 and 0.8. AST of 60, ALT of 28. Albumin of 3.1. Total protein 7.0. Estimated GFR of 70. Troponin level less than 0.06. CT abdomen and pelvis as noted above. Urinalysis unremarkable. Review of the abdomen showed normal, nonspecific bowel gas pattern. ASSESSMENT: Colitis, most certainly on the basis of Clostridium difficile etiology. Agree with combination therapy. We will increase the vancomycin to 500 four times a day via the tube. It sounds that she has got additional issues. Gastrointestinal hemorrhage may well be upper due to some variceal hemorrhage. She is clearly quite ill at this point. At this point, she has reasonably normal kidney function as she is not hypoalbuminemic, which is encouraging. She remains quite tenuous; however, we will monitor expectantly. <ELECTRONICALLY SIGNED> By: Gurmeet Costa MD 10/11/19 0744 1259 [id number] Costa MD /nt
[2019-10-11 07:50] VITALS: BP 146/81
[2019-10-11 10:56] VITALS: BP 146/81
--- NOTE | 2019-10-11 11:00 | NUR ---
Pt to dc home today with services to follow. Pt is current with [facility]; [facility] inform of [facility] dc and SW faxed resume orders and referral info to [facility]. [phone] fax [phone] CECY called and left message for pt dtr Kaila about dc plan.
[2019-10-11 16:00] VITALS: BP 168/92
[2019-10-11] MEDS ORDERED: LEVSIN0.125 MG PO (16:15)
--- NOTE | 2019-10-11 18:31 | NUR ---
PATIENT DISCHARGED TO HOME WITH HOME HEALTH THIS EVENING, DAUGHTER HERE TO TAKE PATIENT HOME. DR. ESCALERA NOTIFIED THAT PATIENT HAVING CRAMPING WITH BM'S, ORDERS FOR L[facility]SIN TO BE CALLED IN. PATIENT OK TO HOLD DISCHARGE AND ATTEMPT TO PLACE SKILLED. VESTA SPOKE WITH PATIENT DAUGHTER AND WILL TAKE PATIENT HOME, DR. ESCALERA NOTIFIED AND OK TO DISCHARGE. IV DC'D. UP WITH SBA. VERBALIZES UNDERSTANDING OF PAPERWORK AND SCRIPT CALLED TO [facility]. PATIENT TAKEN OUT VIA WHEELCHAIR WITH ALL BELONGINGS.
--- NOTE | 2019-10-12 12:24 | CON ---
[address] [address] CONSULTATION Name: ARACELI TOMPKINS Room: [address] IN M.R.#: [id number] Admission: 10/06/19 Attend Phys: Ace Lowe Discharge: 10/11/19 Date of : 42 Report #: [id number] THIS REPORT FOR: //name// cc: Nirali Walden Maggie M. DO THIS REPORT FOR: //name// CC: Ace Power HISTORY OF PRESENT ILLNESS: This is a 79-year-old female with past medical history significant for C. diff, cirrhosis, and remote history of breast cancer who is presenting for evaluation of weakness and abdominal pain. The patient was recently discharged from the hospital on 09/25/2019 for anemia and C. diff colitis. The patient had an EGD and colonoscopy performed at this time. The colonoscopy demonstrating mild inflammation suggestive of colitis. The patient was placed on oral vancomycin and discharged. The patient now has presented back with worsening diarrhea, progressive weakness. The patient denies any hematochezia; however, the patient did have an episode of vomiting with dark-colored emesis. No ketan hematemesis noted. PAST MEDICAL HISTORY: Cirrhosis, C. diff infection, CHF, hypertension, cardiomyopathy, breast cancer. PAST SURGICAL HISTORY: Significant for hysterectomy, left hip surgery, back surgery, lumpectomy. SOCIAL HISTORY: The patient denies smoking, alcohol or recreational drug use. FAMILY HISTORY: No family history of colon cancer or Garcia related neoplasia. REVIEW OF SYSTEMS: Comprehensive 10-point review of systems is negative except for what was mentioned in the HPI. PHYSICAL EXAMINATION: VITAL SIGNS: Temperature 36.4, pulse rate 93, respirations 13, blood pressure 106/61. GENERAL: The patient is alert, difficult to arouse, no asterixis present. HEENT: Mucous membranes are moist. There is no congestion. LUNGS: Clear to auscultation bilaterally. CARDIOVASCULAR: Rate and rhythm regular, S1, S2 present. ABDOMEN: Soft, mild diffuse tenderness to palpation throughout the abdomen. No guarding or rigidity. EXTREMITIES: Warm, 2+ pitting edema bilaterally. LABORATORY DATA: Hemoglobin 9.8, hematocrit 28.9, platelet count 125, WBC count 3.8. Sodium 141, potassium 3.6, chloride 105, bicarbonate 28, BUN 8, [place] [address] CONSULTATION Name: ARACELI TOMPKINS [place] Room: [address]#: [id number] Admission: 10/06/19 Attend Phys: Ace sidhu [place] Discharge: 10/11/19 Date of : 42 Report #: [id number] 0.8, total bilirubin 0.6, AST 58, ALT 24, alkaline phosphatase 106, lipase 279. C. diff PCR pending. IMAGING: CT abdomen and pelvis, this demonstrates pancolonic abnormal wall thickening consistent with colitis. ASSESSMENT AND PLAN: Pleasant 79-year-old female with history outlined above, presenting for evaluation of diarrhea, weakness and found to have coffee-ground emesis. 1. Coffee-ground emesis. Place the patient on a clear liquid diet, continue PPI, octreotide drips. We will proceed with EGD tomorrow and make further recommendations based on results of EGD. 2. Colitis and colon wall thickening noted on CT scan. Continue vancomycin 125 mg 4 times a day. Repeat testing for C. diff. Further recommendations can be based on the C. diff testing. We can consider giving her higher dose of Vancomycin at this time around, if she has persistent infection. The other alternative would be fecal microbiota transplant. Thank you for this consultation. <ELECTRONICALLY SIGNED> By: Corby Miller MD 10/12/19 1224 1735 [id number] Miller MD /nt
--- NOTE | 2019-10-13 13:54 | EKG ---
[place] [address] ELECTROCARDIOGRAM REPORT Name: ARACELI TOMPKINS Room: [address] IN M..#: [id number] Admission: 10/06/19 Attend Phys: Ace sidhu Sa Discharge: 10/11/19 Date of : 44 Date of Service: 10/06/19 1832 Report #: [id number] THIS REPORT FOR: cc: Nirali Walden Maggie M. DO Biggs, F. Douglas MD [facility] ~ THIS REPORT FOR: //name// [facility] ED Test Date: 2019-10-06 Test Time: 18:32:44 Pat Name: ARACELI TOMPKINS Department: Room: [facility] Gender: F Map Clerk: : 1940 Requested By: Yovani Carlton Order Number: [id number] MD: Aj Antoine Measurements Intervals [place] Rate: 80 P: 43 AK: 177 QRS: -50 QRSD: 123 T: 18 QT: 415 QTc: 479 Interpretive Statements Sinus rhythm Ventricular premature complex Left bundle branch block Compared to ECG 09/22/2019 17:43:22 Left bundle-branch block now present Sinus tachycardia no longer present ST (T wave) deviation no longer present Electronically Signed On 10-07-2019 14:31:12 HI LO DRIVER by Aj Antoine [email or web address] <ELECTRONICALLY SIGNED> By: Peter Antoine MD, [facility] 10/07/19 1431 31 31 Peter Antoine MD, [facility] /EPI
== END 2019-10-11 17:50 | disposition home health service (06) | DRG 377 ==
LOC: M.ERS 17:45 → M.TBA-ER 19:03 → M.3W 19:03
PROVIDERS: Family Medicine; Internal Medicine; ADMIT Family Medicine
PROC: 06L38CZ Occlusion of Esophageal Vein with Extraluminal Device, Via Natural or Artificial Opening Endoscopic (ICD-10-PCS; principal; 2019-10-09)
DX: K29.71 Gastritis, unspecified, with bleeding (principal); I85.11 Secondary esophageal varices with bleeding; A04.71 Enterocolitis due to Clostridium difficile, recurrent; K76.6 Portal hypertension; E44.0 Moderate protein-calorie malnutrition; D61.818 Other pancytopenia; E44.1 Mild protein-calorie malnutrition; I50.42 Chronic combined systolic (congestive) and diastolic (congestive) heart failure; I42.9 Cardiomyopathy, unspecified; Z94.81 Bone marrow transplant status; K25.4 Chronic or unspecified gastric ulcer with hemorrhage; K74.69 Other cirrhosis of liver; E87.70 Fluid overload, unspecified; D13.1 Benign neoplasm of stomach; K31.89 Other diseases of stomach and duodenum; E78.5 Hyperlipidemia, unspecified; I27.20 Pulmonary hypertension, unspecified; K44.9 Diaphragmatic hernia without obstruction or gangrene; I11.0 Hypertensive heart disease with heart failure; B19.20 Unspecified viral hepatitis C without hepatic coma; E11.9 Type 2 diabetes mellitus without complications; Z85.3 Personal history of malignant neoplasm of breast; Z90.49 Acquired absence of other specified parts of digestive tract; Z90.710 Acquired absence of both cervix and uterus; Z79.899 Other long term (current) drug therapy; Z88.2 Allergy status to sulfonamides; Z88.8 Allergy status to other drugs, medicaments and biological substances; Z82.49 Family history of ischemic heart disease and other diseases of the circulatory system; Z68.23 Body mass index [BMI] 23.0-23.9, adult; Z95.810 Presence of automatic (implantable) cardiac defibrillator

== ENCOUNTER → 2019-11-03 | Outpatient (CLI) | payer MEDICARE, OTHER ==
[~2019-11-03] MED LIST changes: +LEVSIN0.125 MG PO
--- NOTE | 2019-11-03 10:50 | 2DMMODE ---
[place] [address] 2 D/M-MODE ECHOCARDIOGRAM Name: ARACELI TOMPKINS [place] Room: [facility]#: [id number] Admission: 11/03/19 Attend Phys: Ernie Houser MD Discharge: Date of : 44 Date of Service: 11/03/19 1049 Report #: [id number] THIS REPORT FOR: cc: Nirali Walden Maggie M. DO Blick, David R. MD [facility] ~ APPROVED REPORT Study performed: 11/03/2019 08:11:46 EXAM: Comprehensive 2D, Doppler, and color-flow Echocardiogram Patient Location: Out-Patient BSA: 1.50 HR: 78 bpm BP: 120/60 mmHg Other Information Study Quality: Good Indications Cardiomyopathy 2D Dimensions IVSd: 12.90 (7-11mm) LVOT Diam: 19.63 (18-24mm) LVDd: 40.33 mm PWd: 8.51 (7-11mm) Ascending Ao: 30.50 (22-36mm) LVDs: 29.30 (25-40mm) Aortic Root: 29.19 mm Volumes Left Atrial Volume (Systole) LA ESV Index: 30.20 mL/m2 Aortic Valve AoV Peak Skyler.: 1.83 m/s AO Peak Gr.: 13.40 mmHg LVOT Max P.63 mmHg AO Mean Gr.: 7.85 mmHg LVOT Mean P.85 mmHg LVOT Max V: 0.64 m/s AO V2 VTI: 36.40 cm LVOT Mean V: 0.43 m/s NAKUL (VTI): 1.06 cm2 LVOT V1 VTI: 12.72 cm Mitral Valve MV Peak Gr.: 9.04 [place] [address] 2 D/M-MODE ECHOCARDIOGRAM Name: ARACELI TOMPKINS Room: [facility]#: [id number] Admission: 11/03/19 Attend Phys: Ernie Houser MD Discharge: Date of : 44 Date of Service: 11/03/19 1049 Report #: [id number] Mean Gr.: 3.87 mmHg E/A Ratio: 0.72 MV Decel. Time: 310.79 ms MV E Max Skyler.: 0.93 m/s MV PHT: 90.13 ms MVA (PHT): 2.44 cm2 TDI E/Lateral E': 11.63 E/Medial E': 15.50 Medial E' Skyler.: 0.06 m/s Lateral E' Skyler.: 0.08 m/s Pulmonary Valve PV Peak Skyler.: 0.80 m/s PV Peak Gr.: 2.56 mmHg Tricuspid Valve RAP Estimate: 5.00 mmHg TR Peak Gr.: 20.75 mmHg RVSP: 25.75 mmHg PA Pressure: 25.75 mmHg Left Ventricle The left ventricle is normal size. There is normal LV segmental wall motion. There is normal left ventricular wall thickness. Left ventricular systolic function is borderline. LVEF is 45-50%. Grade I - abnormal relaxation pattern. Right Ventricle The right ventricle is normal size. The right ventricular systolic function is normal. Atria The left atrium size is normal. The right atrium size is normal. Aortic Valve Aortic valve is moderately calcified. No aortic regurgitation is present. Mild aortic stenosis. Mitral Valve Moderate mitral annular calcification. Mild mitral regurgitation. Mild mitral stenosis. Tricuspid Valve The tricuspid valve is normal in structure. There is trace tricuspid valve regurgitation noted[place] [address] 2 D/M-MODE ECHOCARDIOGRAM Name: TOMPKINSARACELI Room: [facility]#: [id number] Admission: 11/03/19 Attend Phys: Ernie Houser MD Discharge: Date of : 42 Date of Service: 11/03/19 1049 Report #: [id number] The pulmonary valve is normal in structure. There is no pulmonic valvular regurgitation. Great Vessels The aortic root is normal in size. IVC is normal in size and collapses >50% with inspiration. Pericardium There is no pericardial effusion. <Conclusion> LVEF is 45-50%. Aortic valve is moderately calcified. Mild aortic stenosis. Mild mitral regurgitation. <ELECTRONICALLY SIGNED> By: Ernie Houser MD, FACC 11/03/19 1049 1049 1049 Ernie Houser MD, FAC /INF
== END ==
LOC: M.CRD 08:00
DX: I34.0 Nonrheumatic mitral (valve) insufficiency (principal); I35.0 Nonrheumatic aortic (valve) stenosis; I70.0 Atherosclerosis of aorta

== ENCOUNTER 2020-03-21 13:21 | Inpatient (IN) | payer MEDICARE, OTHER ==
[~2020-03-21] VITALS: Ht 152.4 cm; Wt 51.7 kg
[2020-03-21 13:34] VITALS: BP 133/59
[2020-03-21] MEDS ORDERED: VOSEVI PO (13:45)
[2020-03-21 13:53] LABS: URINE BILIRUBIN NEGATIVE (Negative); URINE BLOOD TRACE (Negative); URINE CLARITY CLEAR; URINE COLOR YELLOW; URINE GLUCOSE-RANDOM TRACE (Negative); URINE KETONES NEGATIVE (Negative); URINE LEUKOCYTES-REFLEX NEGATIVE (Negative); URINE NITRITE-REFLEX NEGATIVE (Negative); URINE PROTEIN NEGATIVE (Negative); URINE UROBILINOGEN 0.2 E.U./dl (0.2-1.0)
[2020-03-21 14:11] LABS: ABSOLUTE EOSINOPHILS 0.1 thou/uL (0.0-0.7); ABSOLUTE LYMPHOCYTES 1.4 thou/uL (0.8-5.3); ABSOLUTE MONOCYTES 0.5 thou/uL (0.0-1.2); BASOPHILS 0.5 %; HEMATOCRIT 30.4 % (37.0-47.0); HEMOGLOBIN 10.9 gm/dL (12.0-15.0); LYMPHOCYTES 27.8 %; MCH 34.5 pg (26.0-34.0); MCHC 35.9 g/dL (28.0-37.0); MCV 96.3 fL (80.0-100.0); MONOCYTES 10.4 %; MPV 7.4 fl. (7.2-11.1); NUCLEATED RBCS 0 /100WBC; PLATELET COUNT* 104 thou/uL (150-400); POLYS 59.3 %; RBC 3.16 mil/uL (4.20-5.00); RDW-CV 13.3 % (10.5-14.5); WBC 5.1 thou/uL (4.0-11.0)
[2020-03-21 14:19] LABS: PROTIME 10.8 Seconds (9.20-11.50)
[2020-03-21 14:30] LABS: CALCIUM 8.1 mg/dL (8.5-10.1); CREATININE 1.6 mg/dL (0.6-1.3); POTASSIUM 4.5 mmol/L (3.5-5.1)
[2020-03-21 14:35] LABS: ALBUMIN 3.4 g/dL (3.4-5.0); TOTAL BILIRUBIN 0.8 mg/dL (<0.1-1.0); TOTAL PROTEIN 7.2 g/dL (6.4-8.2)
--- NOTE | 2020-03-21 15:00 | NUR ---
BEAU NOTIFIED UPON PT RETURN FROM CT. PT CONNECTED TO MONITOR
--- NOTE | 2020-03-21 16:20 | EKG ---
[place] [address] ELECTROCARDIOGRAM REPORT Name: ARACELI TOMPKINS Room: [facility]#: [id number] Admission: 03/21/20 Attend Phys: Discharge: Date of : 44 Date of Service: 03/21/20 1406 Report #: [id number] THIS REPORT FOR: //name// [facility] ED Test Date: 2020-03-21 Test Time: 14:06:32 Pat Name: ARACELI TOMPKINS Department: Room: Gender: F Supervising Floorperson: [facility] [place] 1940 Requested By: Sierra Christopher Order Number: [id number] MD: Harshil Shukla Measurements Intervals [place] Rate: 80 P: 48 MD: 179 QRS: -42 QRSD: 123 T: 43 QT: 383 QTc: 442 Interpretive Statements Sinus rhythm Nonspecific IVCD with LAD Consider anterior infarct Compared to ECG 10/06/2019 18:32:44 Intraventricular conduction delay now present Myocardial infarct finding now present Ventricular premature complex(es) no longer present Left bundle-branch block no longer present Electronically Signed On 03-21-2020 16:20:17 CDT by Harshil Shukla [email or web address] <ELECTRONICALLY SIGNED> By: Harshil Shukla MD, FACC 03/21/20 1620 1406 1406 Harshil Shukla MD, FACC /EPI
[2020-03-21 17:54] VITALS: BP 127/65
[2020-03-21 18:11] VITALS: BP 122/62
[2020-03-21 22:40] VITALS: BP 143/71
[2020-03-22 05:23] LABS: ABSOLUTE EOSINOPHILS 0.1 thou/uL (0.0-0.7); ABSOLUTE LYMPHOCYTES 1.1 thou/uL (0.8-5.3); ABSOLUTE MONOCYTES 0.4 thou/uL (0.0-1.2); BASOPHILS 0.6 %; EOSINOPHILS 2.6 %; HEMATOCRIT 26.7 % (37.0-47.0); HEMOGLOBIN 9.4 gm/dL (12.0-15.0); LYMPHOCYTES 31.4 %; MCH 33.8 pg (26.0-34.0); MCHC 35.3 g/dL (28.0-37.0); MCV 95.9 fL (80.0-100.0); MONOCYTES 10.7 %; MPV 6.7 fl. (7.2-11.1); NUCLEATED RBCS 0 /100WBC; PLATELET COUNT* 81 thou/uL (150-400); POLYS 54.7 %; RBC 2.78 mil/uL (4.20-5.00); RDW-CV 13.5 % (10.5-14.5); WBC 3.6 thou/uL (4.0-11.0)
[2020-03-22 05:42] LABS: CALCIUM 8.2 mg/dL (8.5-10.1); POTASSIUM 4.6 mmol/L (3.5-5.1)
--- NOTE | 2020-03-22 07:23 | NUR ---
PATIENT HAS SLEPT WELL THROUGHOUT THE NIGHT. VSS ON RA. NO C/O PAIN. MEDICATIONS GIVEN ORDERED AND CHARTED. ASSESSMENT CHARTED. PATIENT IS UP WITH SBA TO THE BSC. PATIENT HAS REMAINED NPO SINCE MIDNIGHT D/T GI BEING CONSULTED TO SEE HER TODAY. UNABLE TO OBTAIN STOOL SAMPLE D/T PATIENT URINATING IN HER STOOL. IV IN LEFT AC-NS @ 70ML/HR. PATIENT INSTRUCTED TO USE CALL LIGHT WHEN NEEDING ASSISTANCE. HOURLY ROUNDS MADE. WILL CONTINUE WITH PLAN OF CARE AND NURSING TO MONITOR.
[2020-03-22 07:25] VITALS: BP 134/70
--- NOTE | 2020-03-22 11:03 | NUR ---
CM SPOKE TO THE PT TO DISCUSS HER HOME SITUATION, AND DISCHARGE PLANNING NEEDS. PT A&O, INDEPENDENT WITH ADL'S, AND DRIVES. PT RESIDES AT HOME ALONE AND ABLE TO DO HER OWN COOKING AND CLEANING. PT OWNS A WALKER AND CANE, AND USES ONE OR THE OTHER FOR MOBILITY OUTSIDE THE HOME ONLY. PT HAS HX OF SNF AT [facility] AND PLANS TO RESUME SERVICES WITH THEM AT D/C. SONJA SPOKE TO ERVIN WITH ADMISSIONS TO CONFIRM THAT PT IS ON-SERVICE WITH [facility] [facility]. ERVIN CONFIRMS THIS AND INFORMS THAT THE PT HAD JUST STATRED HH SERVICES ON FRIDAY. [facility] WILL RESUME HH SERVICES FOR THE PT AT D/C PENDING D/C ORDERS. CM WILL REMAIN AVAILABLE TO ASSIST AND FOLLOW NEEDED. [facility] PHONE: [phone] FAX: [phone]
[2020-03-22 15:04] VITALS: BP 138/73
--- NOTE | 2020-03-22 16:42 | NUR ---
PT REMAINED ALERT AND ORIENTED. PT RESTING IN BED. PT DENIES ANY NEEDS. AWAITING STOOL SAMPLE RESULTS. ISOLATION MAINTAINED. FALL RISK PRECAUTIONS IN PLACE. HOURLY ROUNDING COMPLETED. WILL CONTINUE TO MONITOR.
[2020-03-22 20:52] VITALS: BP 153/84
--- NOTE | 2020-03-23 01:49 | CON ---
[address] [address] CONSULTATION Name: ARACELI TOMPKINS Room: [address] IN M.R.#: [id number] Admission: 03/21/20 Attend Phys: Jonathan Ma MD Discharge: Date of : 44 Report #: [id number] THIS REPORT FOR: //name// cc: Nirali Walden Maggie M. DO ~ THIS REPORT FOR: //name// CC: Jonathan Walden DO DICTATED BY: Gayatri Triana [facility] DATE OF SERVICE: 03/22/2020 Please note at the time of this dictation, the patient was seen and physically examined by myself. REASON FOR CONSULTATION: Diarrhea. HISTORY OF PRESENT ILLNESS: This 79-year-old female who is well known to our practice, who has been having diarrhea since 02/21/2020. She states it is anywhere from 6 to 8 times a day, usually occurs after she eats, she will have a little bit of mild cramping. She denies any bright red blood or melanotic stool at this time. She denies any nausea or vomiting. She just has a little bit of cramping, but otherwise normal. The patient did undergo an EGD and colonoscopy back in September of this year that showed some varices and hiatal hernia scar in the lower third of her esophagus. She had some external hemorrhoids. She had a polyp removed and random colon biopsies were obtained; however, the specimens were lost at that time. Otherwise, overall she states she was feeling a little weak at this time. ALLERGIES: SULFA AND DIGOXIN. MEDICATIONS FROM HOME: Carvedilol, pantoprazole, Entresto, Remeron, calcium, Requip, Benadryl, furosemide, Klor-Con, and Vosevi for her hepatitis C. PAST MEDICAL HISTORY: History of hepatitis C virus, breast cancer, history of C. difficile, she has had m[facility] in the [facility], some congestive heart failure, and she has had a vertebral fracture. PAST SURGICAL HISTORY: Hysterectomy, left hip surgery, back surgery, and bone marrow transplant. She has had a defibrillator and pacemaker placed that has been removed and then she has had a vertebroplasty to her back in the past. FAMILY HISTORY: Negative for any GI [place] [address] CONSULTATION Name: TOMPKINSARACELI Room: [address]#: [id number] Admission: 03/21/20 Attend Phys: Jonathan Ma MD Discharge: Date of : 44 Report #: [id number] SOCIAL HISTORY: Denies any alcohol, tobacco or illegal drug use. REVIEW OF SYSTEMS: The 12-point review of systems is essentially negative except what is mentioned in the HPI. PHYSICAL EXAMINATION: VITAL SIGNS: Temperature 36.7, pulse 81, respirations 16, and blood pressure 134/78. HEART: Regular rate and rhythm. LUNGS: Clear. ABDOMEN: Soft, positive bowel sounds in all 4 quadrants with no masses or tenderness noted. LABORATORY DATA: Hemoglobin 9.4, white count 3.6, and platelets 81. GFR is 54. LFTs are normal. PT 10.[address] of the abdomen shows absent gallbladder, bilateral inguinal hernias, and she does have some circumferential wall thickening in the cecum, ascending and transverse colon. IMPRESSION: 1. Diarrhea. 2. Mild abdominal cramping. 3. Thrombocytopenia. 4. History of anemia. 5. Abnormal CT. 6. History of hepatitis C virus, under treatment. 7. History of esophageal varices. 8. History of breast cancer. PLAN: 1. Await C. difficile results. 2. Clear liquid diet. 3. Depending on above, we will depend on if she needs a full colonoscopy to assess the right side of her colon with some random colon biopsies. Thank you for allowing us to participate in this patient's care. Please do not hesitate to call with any questions in regard to this consult. <ELECTRONICALLY SIGNED> By: Frank Almonte MD 03/23/20 0149 1253 [id number] Almonte MD /nt
--- NOTE | 2020-03-23 04:47 | NUR ---
PT CDIFF POSITIVE RESULTS THIS SHIFT. SHE IS UP WITH ASSISTANCE TO BEDSIDE COMMODE. SHE IS ALERT AND ORIENTED. RIGHT LIMB ALERT HX BREAST CANCER. CLEAR LIQUID DIET, NO REPORTS OF NAUSEA OR VOMITING. GI HAS BEEN CONSUTLTED. RECEIVED ALL MEDS SCHEDULED. WILL CONTINUE TO FOLLOW PLAN OF CARE.
[2020-03-23 05:05] LABS: ABSOLUTE EOSINOPHILS 0.1 thou/uL (0.0-0.7); ABSOLUTE LYMPHOCYTES 1.2 thou/uL (0.8-5.3); ABSOLUTE MONOCYTES 0.4 thou/uL (0.0-1.2); ABSOLUTE NEUTROPHILS 1.9 thou/uL (1.6-8.1); BASOPHILS 0.6 %; EOSINOPHILS 3.1 %; HEMOGLOBIN 9.7 gm/dL (12.0-15.0); LYMPHOCYTES 32.8 %; MCH 34.1 pg (26.0-34.0); MCHC 35.8 g/dL (28.0-37.0); MCV 95.1 fL (80.0-100.0); MONOCYTES 10.5 %; MPV 6.6 fl. (7.2-11.1); NUCLEATED RBCS 0 /100WBC; PLATELET COUNT* 85 thou/uL (150-400); RBC 2.84 mil/uL (4.20-5.00); RDW-CV 13.2 % (10.5-14.5); WBC 3.6 thou/uL (4.0-11.0)
[2020-03-23 05:12] LABS: ALBUMIN 2.7 g/dL (3.4-5.0); CALCIUM 8.4 mg/dL (8.5-10.1); CREATININE 0.9 mg/dL (0.6-1.3); POTASSIUM 4.5 mmol/L (3.5-5.1); TOTAL BILIRUBIN 0.7 mg/dL (<0.1-1.0); TOTAL PROTEIN 5.8 g/dL (6.4-8.2)
[2020-03-23 07:49] VITALS: BP 152/76
[2020-03-23] MEDS ORDERED: FIRVANQ50 MG/1 ML PO (09:22)
[2020-03-23 12:33] VITALS: BP 152/76
--- NOTE | 2020-03-23 12:44 | NUR ---
CM SPOKE TO THE PT TO DISCUSS D/C PLANNING, HH, AND ABT COST. PT TO D/C WITH [facility]. CM FAXED PT'S D/C ORDERS TO [facility]. CM TO CALL TO CHECK CO-PAY OF [employer] WHEN CALLED-IN BY RN. CM WILL REMAIN AVAILABLE TO ASSIST AND FOLLOW NEEDED. [facility] PHONE: [phone] FAX: [phone]
--- NOTE | 2020-03-23 14:20 | NUR ---
PT DISCHARGED HOME. COPY OF DISCHARGE PAPERWORK TO PT WITH EXPLAINATION. PT VERBALIZED UNDERSTANDING. PRESCRIPTION FOR VANC GIVEN TO PT. IV ACCESS REMOVED.
== END 2020-03-23 14:26 | disposition home or self-care (01) | DRG 371 ==
LOC: M.ERS 13:21 → M.ORTHSURG 15:50 → M.TBA-ER 15:50 → M.ORTHSURG 18:17
PROVIDERS: Nurse Practitioner Family; ADMIT Internal Medicine; ATTEND Internal Medicine
DX: A04.72 Enterocolitis due to Clostridium difficile, not specified as recurrent (principal); R65.11 Systemic inflammatory response syndrome (SIRS) of non-infectious origin with acute organ dysfunction; N17.9 Acute kidney failure, unspecified; I50.40 Unspecified combined systolic (congestive) and diastolic (congestive) heart failure; Z20.828 Contact with and (suspected) exposure to other viral communicable diseases; E86.0 Dehydration; I11.0 Hypertensive heart disease with heart failure; K74.69 Other cirrhosis of liver; I50.9 Heart failure, unspecified; A04.9 Bacterial intestinal infection, unspecified; B18.2 Chronic viral hepatitis C; Z88.2 Allergy status to sulfonamides; Z88.8 Allergy status to other drugs, medicaments and biological substances; Z85.3 Personal history of malignant neoplasm of breast; Z90.49 Acquired absence of other specified parts of digestive tract; Z90.710 Acquired absence of both cervix and uterus

== ENCOUNTER 2020-04-15 13:04 | Inpatient (IN) | payer MEDICARE, OTHER ==
[~2020-04-15] VITALS: Ht 152.4 cm; Wt 53.5 kg
[~2020-04-15 13:04] MED LIST changes: +VOSEVI PO
[2020-04-15 13:12] VITALS: BP 161/76
[2020-04-15 13:54] LABS: ABSOLUTE EOSINOPHILS 0.1 thou/uL (0.0-0.7); ABSOLUTE MONOCYTES 0.6 thou/uL (0.0-1.2); ABSOLUTE NEUTROPHILS 4.9 thou/uL (1.6-8.1); BASOPHILS 0.2 %; EOSINOPHILS 1.2 %; HEMATOCRIT 29.5 % (37.0-47.0); HEMOGLOBIN 10.5 gm/dL (12.0-15.0); MCH 34.6 pg (26.0-34.0); MCHC 35.7 g/dL (28.0-37.0); MONOCYTES 9.2 %; MPV 7.6 fl. (7.2-11.1); NUCLEATED RBCS 0 /100WBC; PLATELET COUNT* 88 thou/uL (150-400); POLYS 74.4 %; RBC 3.04 mil/uL (4.20-5.00); WBC 6.5 thou/uL (4.0-11.0)
[2020-04-15 14:01] LABS: CREATININE 1.1 mg/dL (0.6-1.3); POTASSIUM 3.6 mmol/L (3.5-5.1)
[2020-04-15 14:06] LABS: TOTAL PROTEIN 6.7 g/dL (6.4-8.2)
[2020-04-15 16:17] VITALS: BP 142/70
--- NOTE | 2020-04-15 17:41 | NUR ---
PT ADMITTED FROM ER. IVF INFUSING. SPECIAL PRECAUTIONS IN PLACE FOR CDIFF. DENIES PAIN AT THIS TIME.
[2020-04-15 20:15] VITALS: BP 127/58
[2020-04-15 22:13] LABS: URINE BILIRUBIN NEGATIVE (Negative); URINE BLOOD 3+ (Negative); URINE COLOR YELLOW; URINE GLUCOSE-RANDOM 2+ (Negative); URINE KETONES TRACE (Negative); URINE LEUKOCYTES-REFLEX TRACE (Negative); URINE NITRITE-REFLEX POSITIVE (Negative); URINE PROTEIN 2+ (Negative); URINE SPECIFIC GRAVITY 1.015 (1.005-1.030); URINE UROBILINOGEN 0.2 E.U./dl (0.2-1.0)
[2020-04-15 22:14] LABS: URINE CLARITY HAZY
[2020-04-15 22:21] LABS: BACTERIA-REFLEX >30 Many /HPF (None Seen); CASTS None Seen /LPF (None Seen); CRYSTALS None Seen /LPF (None Seen); SQUAMOUS 0-3 Few /LPF (0-3); URINE RBC 3-10 Few /HPF (0-2); URINE WBC-REFLEX 6-15 Few /HPF (0-5)
[2020-04-16 04:32] LABS: HEMATOCRIT 24.9 % (37.0-47.0); HEMOGLOBIN 8.8 gm/dL (12.0-15.0); MCH 34.3 pg (26.0-34.0); MCHC 35.5 g/dL (28.0-37.0); MCV 96.5 fL (80.0-100.0); MPV 7.2 fl. (7.2-11.1); RBC 2.58 mil/uL (4.20-5.00); RDW-CV 13.6 % (10.5-14.5); WBC 5.8 thou/uL (4.0-11.0)
[2020-04-16 04:53] LABS: ALBUMIN 2.4 g/dL (3.4-5.0); CALCIUM 7.5 mg/dL (8.5-10.1); MAGNESIUM 1.6 mg/dL (1.8-2.4); POTASSIUM 3.3 mmol/L (3.5-5.1); TOTAL BILIRUBIN 0.7 mg/dL (<0.1-1.0); TOTAL PROTEIN 5.4 g/dL (6.4-8.2)
--- NOTE | 2020-04-16 05:18 | NUR ---
PT SLEPT FAIRLY WELL OVERNIGHT. HAS DENIED PAIN THIS SHIFT. R AC IVF INFUSING PER PUMP, ABX GIVEN ORDERED. RECIEVING PO VANC ORDERED. UP TO BSC TO VOID OVERNIGHT, NO STOOLS THIS SHIFT. PT AWARE OF NEED FOR CDIFF SPECIMEN. URINE SPECIMEN SENT TO LAB. AM LABS DRAWN. REMAINS ON SP CONTACT ISOLATION. ABLE TO USE CALL LITE AND MAKE NEEDS KNOWN.
[2020-04-16 07:50] VITALS: BP 157/63
--- NOTE | 2020-04-16 18:32 | NUR ---
PT REMAINS IN SPECIAL PRECAUTIONS. STOOL SENT FOR CDIFF. IVF INFUSING. DENIES PAIN.
[2020-04-16 20:15] VITALS: BP 138/66
[2020-04-17 04:34] LABS: HEMATOCRIT 25.2 % (37.0-47.0); MCH 34.1 pg (26.0-34.0); MCHC 35.7 g/dL (28.0-37.0); MCV 95.6 fL (80.0-100.0); RBC 2.63 mil/uL (4.20-5.00); WBC 4.3 thou/uL (4.0-11.0)
[2020-04-17 05:04] LABS: ALBUMIN 2.5 g/dL (3.4-5.0); CALCIUM 7.5 mg/dL (8.5-10.1); CREATININE 0.9 mg/dL (0.6-1.3); MAGNESIUM 1.7 mg/dL (1.8-2.4); POTASSIUM 3.4 mmol/L (3.5-5.1); TOTAL BILIRUBIN 0.6 mg/dL (<0.1-1.0); TOTAL PROTEIN 5.5 g/dL (6.4-8.2)
--- NOTE | 2020-04-17 05:21 | NUR ---
PT SLEPT OFF AND ON OVERNIGHT, UP SEVERAL TIMES TO BSC WITH MUCOUSY BM. IVF INFUSING PER PUMP WITHOUT DIFFICULTY. AM LABS DRAWN. PT HAS DENIED NEED FOR PAIN MED. ALOE WIPES AND BARRIER CREAM GIVEN FOR PT INDEP WEI CARE. REMAINS OF SP CONTACT ISOLATION. ABLE TO USE CALL LITE AND MAKE NEEDS KNOWN. GI CONSULTING.
[2020-04-17 08:00] VITALS: BP 138/75
--- NOTE | 2020-04-17 13:30 | NUR ---
PT.LIVES ALONE BUT HAS SUPPORTIVE CHILDREN. DAUGHTER,CHRISTAL, IS HER DPOA. PT.IS CURRENTLY ON SERVICE WITH [facility]. CM SPOKE WITH ERVIN/[employer]. SHE SAID JUST TO NOTIFY HER WHEN PT IS BEING DISCHARGED AND SHE WILL NOTIFY OFFICE. WILL NEED DISCHARGE ORDERS FAXED TO [employer]. PT.HAS A CANE AND WALKER. HAS A HX OF SNF AT [facility]. CM WILL FOLLOW FOR DISCHARGE PLANNING.
[2020-04-17 17:04] VITALS: BP 127/71
--- NOTE | 2020-04-17 17:11 | NUR ---
PATIENT CONTINUES TO HAVE STOOLS. SCHED PO VANC GIVEN ORDERED. PATIENT STATED SHE THINKS SHE IS GOING HOME TOMORROW PER GI, WILL AWAIT ORDERS/NOTES. UP SBA TO BSC. IVF INFUSING, SCHED FLAGYL INFUSED ORDERED. NO COMPLAINTS OF PAIN. GOOD APPETITE.
--- NOTE | 2020-04-17 18:38 | NUR ---
PATIENT CALLED OUT STATING SHE WAS HAVING SOA. PATIENT NOTED TO HAVE LABORED BREATHING. 02 SAT 98-99% RA. PATIENT PLACED ON 2L NC FOR COMFORT. DR NARANJO STATE TROOPER AND NOTIFIED. STAT CXR AND IV LASIX ORDERED. WILL CONTINUE TO MONITOR.
[2020-04-17 19:50] VITALS: BP 138/78
--- NOTE | 2020-04-18 05:59 | NUR ---
Pt alert and oriented. VSS on RA, Meds given as ordered. Pt given prn benadryl for sleep. Loose BMs this shift. Isolation for Cdiff. Pt up independently to BSC. Encouraged to call if needing assistance. Call light within reach. Hourly roundings made. Will continue to monitor.
[2020-04-18 08:15] VITALS: BP 145/78
--- NOTE | 2020-04-18 14:27 | EKG ---
[place] [address] ELECTROCARDIOGRAM REPORT Name: ARACELI TOMPKINS Room: [address] ADM IN ..#: [id number] Admission: 04/15/20 Attend Phys: Selene Larose, Discharge: Date of : 44 Date of Service: 04/15/20 1315 Report #: [id number] THIS REPORT FOR: //name// [facility] ED Test Date: 2020-04-15 Test Time: 13:15:21 Pat Name: ARACELI TOMPKINS Department: Room: [facility] Gender: F Drafter Structural: [place] : 1940 Requested By: Yovani Carlton Order Number: [id number] MD: Abraham Miller Measurements Intervals [place] Rate: 100 P: 51 RI: 170 QRS: -45 QRSD: 126 T: 70 QT: 337 QTc: 435 Interpretive Statements Sinus tachycardia Left bundle branch block Baseline wander in lead(s) V3 Compared to ECG 03/21/2020 14:06:32 Left bundle-branch block now present Sinus rate has increased Myocardial infarct finding no longer present Electronically Signed On 04-18-2020 14:26:55 CDT by Abraham Miller [email or web address] <ELECTRONICALLY SIGNED> By: Abraham Miller MD, [facility] 04/18/20 1426 1315 1315 Abraham Miller MD, [facility] /EPI
[2020-04-18 16:00] VITALS: BP 119/84
--- NOTE | 2020-04-18 17:12 | NUR ---
PATIENT HAS BEEN RESTING IN THE BED AND CHAIR TODAY WORKING ON [employer]ZZLES AND WATCHING TV. SHE DENIES ANY PAIN TODAY AND STATES THAT SHE IS READY TO GO HOME. VSS. SHE TAKES HER MEDS WHOLE WITH WATER. SHE IS ALERT AND ORIENTED X 4 and up ad jessy to the bathroom. DENIES ANY NEEDS OR WANTS. SHE DOES USE HER CALL LIGHT TO MAKE ALL NEEDS KNOWN.
[2020-04-18 19:50] VITALS: BP 122/65
[2020-04-19 04:23] LABS: HEMATOCRIT 25.6 % (37.0-47.0); MCH 33.9 pg (26.0-34.0); MCHC 35.2 g/dL (28.0-37.0); MCV 96.2 fL (80.0-100.0); MPV 6.8 fl. (7.2-11.1); RBC 2.67 mil/uL (4.20-5.00); RDW-CV 14.1 % (10.5-14.5); WBC 3.5 thou/uL (4.0-11.0)
[2020-04-19 04:47] LABS: CALCIUM 7.9 mg/dL (8.5-10.1); CREATININE 0.9 mg/dL (0.6-1.3); MAGNESIUM 1.4 mg/dL (1.8-2.4); POTASSIUM 3.9 mmol/L (3.5-5.1)
--- NOTE | 2020-04-19 05:19 | NUR ---
Pt alert and oriented. VSS on RA. Meds given as ordered. Pt slept well this shift. Special contact isolation still in place. Pt denies pain. Pt ambulates independently to bsc. Will continue to monitor.
[2020-04-19 08:00] VITALS: BP 142/80
[2020-04-19] MEDS ORDERED: DIFICID200 MG PO (08:40)
[2020-04-19] MEDS ORDERED: KEFLEX500 M1 PO (08:40)
[2020-04-19] MEDS ORDERED: VOLTAREN GEL 1100 G1 TOP (11:08)
[2020-04-19 13:04] VITALS: BP 142/80
--- NOTE | 2020-04-19 13:37 | NUR ---
CALLED IN PRESCRIPTION FOR DIFICID WRITTEN TO [facility] IN [place]. PHARMACIST SAID MED REQUIRES PA. CM CALLED [facility] AND OBTAINED PRIOR AUTH WITH [employer]. RECEIVED FAXED LETTER OF CONFIRMATION AND PUT ON CHART. CONTACTED [facility] FOR COPAY WHICH WAS $280. INFORMED PT. SHE SAID SHE REALLY CANT AFFORD THIS MED. WANTED CM TO TRY [facility] IN [place]. SPOKE WITH PHARMACIST THERE. SHE SAID THEY CANNOT RUN MEDICATION WITH ANOTHER PHARMACY SUBMITTING ALSO. INFORMED PT. SHE SAID THAT WAS OK. HER DAUGHTER WILL HELP HER WITH COST. NOTIFIED [facility] OF PTS DISCHARGE. FAXED H&P, DISCHARGE SUMMARY AND WRITTEN ORDER TO RESUME HH TO [facility] [phone].
--- NOTE | 2020-04-19 16:56 | NUR ---
PATIENT DISCHARGED TO HOME AT THIS TIME. IV DC'D AM DUE TO PAIN AT SITE. MG GIVEN PER REPLACEMENT THIS AM. NO STOOLS NOTED THIS SHIFT. VERBALIZES UNDERSTANDING OF PAPERWORK AND SCRIPTS SENT TO PHARMACY. PATIENT TAKEN OUT VIA WHEELCHAIR WITH DAUGHTER AND ALL BELONGINGS.
== END 2020-04-19 16:30 | disposition home health service (06) | DRG 372 ==
LOC: M.ERS 13:04 → M.3W 14:24 → M.TBA-ER 14:24 → M.3W 16:29
PROVIDERS: Family Medicine; ADMIT Internal Medicine; ATTEND Internal Medicine
DX: A04.71 Enterocolitis due to Clostridium difficile, recurrent (principal); E44.1 Mild protein-calorie malnutrition; N39.0 Urinary tract infection, site not specified; K72.90 Hepatic failure, unspecified without coma; M19.90 Unspecified osteoarthritis, unspecified site; B96.20 Unspecified Escherichia coli [E. coli] as the cause of diseases classified elsewhere; E86.0 Dehydration; Z20.828 Contact with and (suspected) exposure to other viral communicable diseases; Z88.2 Allergy status to sulfonamides; Z88.8 Allergy status to other drugs, medicaments and biological substances; Z79.899 Other long term (current) drug therapy; Z68.23 Body mass index [BMI] 23.0-23.9, adult

== ENCOUNTER 2020-05-19 18:46 | Inpatient (IN) | payer MEDICARE ==
[~2020-05-19] VITALS: Ht 157.5 cm; Wt 54.4 kg
[~2020-05-19 18:46] MED LIST changes: +DIFICID200 MG PO; +VOLTAREN GEL 1100 G1 TOP
[2020-05-19 19:06] VITALS: BP 115/68
[2020-05-19] MEDS ORDERED: ROPINIROLE HCL2 M1 PO (19:10)
[2020-05-19] MEDS ORDERED: CARVEDILOL25 MG PO (19:10)
[2020-05-19] MEDS ORDERED: FUROSEMIDE 40 M40 MG PO (19:11)
[2020-05-19] MEDS ORDERED: PROTONIX40 M2 PO (19:11)
[2020-05-19] MEDS ORDERED: ENTRESTO 97 MG1 EACH PO (19:11)
[2020-05-19] MEDS ORDERED: POTASSIUM20 PO (19:11)
[2020-05-19] MEDS ORDERED: FLORANEX TABLE1 EACH PO (19:12)
[2020-05-19] MEDS ORDERED: BENADRYL25 MG PO (19:13)
[2020-05-19] MEDS ORDERED: REMERON15 M2 PO (19:13)
[2020-05-19] MEDS ORDERED: NEURONTIN300 MG PO (19:13)
[2020-05-19] MEDS ORDERED: CALCIUM500 MG PO (19:14)
[2020-05-19] MEDS ORDERED: VITAMIN B-125000 MCG SUBLING (19:14)
[2020-05-19] MEDS ORDERED: IRON CHEWS15 M1 PO (19:15)
[2020-05-19] MEDS ORDERED: MELATONIN5 MG SUBLING (19:15)
[2020-05-19 20:23] LABS: ABSOLUTE EOSINOPHILS 0.1 thou/uL (0.0-0.7); ABSOLUTE LYMPHOCYTES 1.5 thou/uL (0.8-5.3); ABSOLUTE MONOCYTES 0.8 thou/uL (0.0-1.2); ABSOLUTE NEUTROPHILS 6.7 thou/uL (1.6-8.1); BASOPHILS 0.4 %; EOSINOPHILS 1.3 %; HEMATOCRIT 33.2 % (37.0-47.0); HEMOGLOBIN 11.7 gm/dL (12.0-15.0); LYMPHOCYTES 16.6 %; MCHC 35.2 g/dL (28.0-37.0); MCV 96.7 fL (80.0-100.0); MONOCYTES 9.1 %; MPV 7.9 fl. (7.2-11.1); NUCLEATED RBCS 0 /100WBC; PLATELET COUNT* 113 thou/uL (150-400); POLYS 72.6 %; RBC 3.43 mil/uL (4.20-5.00); RDW-CV 13.5 % (10.5-14.5); WBC 9.2 thou/uL (4.0-11.0)
[2020-05-19 20:32] LABS: CALCIUM 8.7 mg/dL (8.5-10.1); CREATININE 1.4 mg/dL (0.6-1.3); POTASSIUM 4.6 mmol/L (3.5-5.1)
[2020-05-19 20:36] LABS: ALBUMIN 3.4 g/dL (3.4-5.0); TOTAL BILIRUBIN 0.8 mg/dL (<0.1-1.0); TOTAL PROTEIN 7.1 g/dL (6.4-8.2)
[2020-05-19 20:47] LABS: URINE BILIRUBIN NEGATIVE (Negative); URINE BLOOD TRACE (Negative); URINE CLARITY CLEAR; URINE COLOR YELLOW; URINE GLUCOSE-RANDOM NEGATIVE (Negative); URINE KETONES NEGATIVE (Negative); URINE LEUKOCYTES-REFLEX NEGATIVE (Negative); URINE NITRITE-REFLEX NEGATIVE (Negative); URINE PROTEIN NEGATIVE (Negative); URINE SPECIFIC GRAVITY 1.015 (1.005-1.030); URINE UROBILINOGEN 0.2 E.U./dl (0.2-1.0)
[2020-05-20 01:45] VITALS: BP 109/62
[2020-05-20 01:47] VITALS: BP 109/62
[2020-05-20 04:00] VITALS: BP 116/88
[2020-05-20 08:25] VITALS: BP 108/63
[2020-05-20 20:13] VITALS: BP 121/65
[2020-05-21 04:16] LABS: ABSOLUTE EOSINOPHILS 0.2 thou/uL (0.0-0.7); ABSOLUTE LYMPHOCYTES 1.4 thou/uL (0.8-5.3); ABSOLUTE MONOCYTES 0.6 thou/uL (0.0-1.2); ABSOLUTE NEUTROPHILS 4.4 thou/uL (1.6-8.1); BASOPHILS 0.2 %; EOSINOPHILS 3.7 %; HEMATOCRIT 29.7 % (37.0-47.0); HEMOGLOBIN 10.5 gm/dL (12.0-15.0); LYMPHOCYTES 20.6 %; MCH 34.2 pg (26.0-34.0); MCHC 35.3 g/dL (28.0-37.0); MCV 97.1 fL (80.0-100.0); MONOCYTES 9.2 %; MPV 7.6 fl. (7.2-11.1); NUCLEATED RBCS 0 /100WBC; PLATELET COUNT* 81 thou/uL (150-400); POLYS 66.3 %; RBC 3.06 mil/uL (4.20-5.00); RDW-CV 13.7 % (10.5-14.5); WBC 6.6 thou/uL (4.0-11.0)
[2020-05-21 04:55] LABS: CALCIUM 8.2 mg/dL (8.5-10.1); CREATININE 1.1 mg/dL (0.6-1.3)
[2020-05-21 07:50] VITALS: BP 139/50
[2020-05-21 16:30] VITALS: BP 131/75
[2020-05-22 03:53] LABS: ABSOLUTE EOSINOPHILS 0.3 thou/uL (0.0-0.7); ABSOLUTE LYMPHOCYTES 1.4 thou/uL (0.8-5.3); ABSOLUTE MONOCYTES 0.6 thou/uL (0.0-1.2); ABSOLUTE NEUTROPHILS 2.6 thou/uL (1.6-8.1); BASOPHILS 0.4 %; EOSINOPHILS 5.5 %; HEMATOCRIT 30.7 % (37.0-47.0); LYMPHOCYTES 29.3 %; MCH 34.2 pg (26.0-34.0); MCHC 35.8 g/dL (28.0-37.0); MCV 95.6 fL (80.0-100.0); MONOCYTES 11.3 %; MPV 7.3 fl. (7.2-11.1); NUCLEATED RBCS 0 /100WBC; PLATELET COUNT* 88 thou/uL (150-400); POLYS 53.5 %; RBC 3.21 mil/uL (4.20-5.00); RDW-CV 13.4 % (10.5-14.5); WBC 4.9 thou/uL (4.0-11.0)
[2020-05-22 04:00] LABS: CALCIUM 8.8 mg/dL (8.5-10.1); CREATININE 1.1 mg/dL (0.6-1.3); POTASSIUM 3.9 mmol/L (3.5-5.1)
[2020-05-22 07:00] VITALS: BP 139/76
--- NOTE | 2020-05-22 14:50 | EKG ---
[place] [address] ELECTROCARDIOGRAM REPORT Name: ARACELI TOMPKINS Room: [address] IN ..#: [id number] Admission: 05/20/20 Attend Phys: Selene Larose, Discharge: Date of : 44 Date of Service: 05/19/202021 Report #: [id number] THIS REPORT FOR: //name// [facility] ED Test Date: 2020-05-19 Test Time: 20:22:59 Pat Name: ARACELI TOMPKINS Department: Room: [facility] Gender: F [place]: [place] : 1940 Requested By: Yessy Zhao Order Number: [id number] MD: Abraham Miller Measurements Intervals [place] Rate: 88 P: 53 TN: 177 QRS: -46 QRSD: 119 T: 30 QT: 367 QTc: 444 Interpretive Statements Sinus rhythm Incomplete left bundle branch block Left ventricular hypertrophy Possible inferior infarct, old Anterior Q waves, possibly due to LVH, possible anteroseptal scar Compared to ECG 04/15/2020 13:15:21 Left ventricular hypertrophy now present Q waves now present Sinus tachycardia no longer present Electronically Signed On 05-22-2020 14:50:28 CDT by Abraham Miller [email or web address] <ELECTRONICALLY SIGNED> By: Abraham Miller MD, [facility] 05/22/20 1450 21 21 Abraham Miller MD, [facility] /EPI
[2020-05-22 20:15] VITALS: BP 126/67
[2020-05-23 04:06] LABS: ABSOLUTE EOSINOPHILS 0.3 thou/uL (0.0-0.7); ABSOLUTE LYMPHOCYTES 1.4 thou/uL (0.8-5.3); ABSOLUTE MONOCYTES 0.5 thou/uL (0.0-1.2); ABSOLUTE NEUTROPHILS 1.6 thou/uL (1.6-8.1); BASOPHILS 0.7 %; HEMATOCRIT 30.8 % (37.0-47.0); HEMOGLOBIN 11.1 gm/dL (12.0-15.0); LYMPHOCYTES 37.8 %; MCH 34.1 pg (26.0-34.0); MCHC 36.2 g/dL (28.0-37.0); MCV 94.2 fL (80.0-100.0); MONOCYTES 12.9 %; MPV 7.1 fl. (7.2-11.1); NUCLEATED RBCS 0 /100WBC; PLATELET COUNT* 103 thou/uL (150-400); POLYS 41.6 %; RBC 3.26 mil/uL (4.20-5.00); RDW-CV 13.3 % (10.5-14.5); WBC 3.8 thou/uL (4.0-11.0)
[2020-05-23 04:16] LABS: CALCIUM 9.2 mg/dL (8.5-10.1); CREATININE 1.1 mg/dL (0.6-1.3); POTASSIUM 3.9 mmol/L (3.5-5.1)
[2020-05-23 08:10] VITALS: BP 146/97
[2020-05-23] MEDS ORDERED: VANCOMYCIN HCL250 MG PO (13:03)
[2020-05-23 14:57] VITALS: BP 146/97
== END 2020-05-23 16:45 | disposition home health service (06) | DRG 371 ==
LOC: M.ERS 18:46 → M.3W 05-20 00:43 → M.TBA-ER 05-20 00:43 → M.3W 05-20 01:55
PROVIDERS: Internal Medicine; Personal Emergency Response Attendant; ADMIT Internal Medicine; ATTEND Internal Medicine
DX: A04.71 Enterocolitis due to Clostridium difficile, recurrent (principal); N17.0 Acute kidney failure with tubular necrosis; M19.90 Unspecified osteoarthritis, unspecified site; I50.9 Heart failure, unspecified; R53.1 Weakness; Z20.828 Contact with and (suspected) exposure to other viral communicable diseases; Z79.899 Other long term (current) drug therapy; Z88.2 Allergy status to sulfonamides; Z88.8 Allergy status to other drugs, medicaments and biological substances

== ENCOUNTER 2020-08-02 09:28 | Emergency (ER) | payer MEDICARE, OTHER ==
[~2020-08-02] VITALS: Ht 152.4 cm; Wt 54.9 kg
[~2020-08-02 09:28] MED LIST changes: +BENADRYL25 MG PO; +IRON CHEWS15 M1 PO; +MELATONIN5 MG SUBLING; +NEURONTIN300 MG PO; +PROTONIX40 M2 PO; +ROPINIROLE HCL2 M1 PO; +VANCOMYCIN HCL250 MG PO; +VITAMIN B-125000 MCG SUBLING
[2020-08-02] MEDS ORDERED: B-COMPLEX-VITA1 EACH PO (10:01)
[2020-08-02] MEDS ORDERED: VITAMIN B 6 (10:01)
[2020-08-02] MEDS ORDERED: IRON PO (10:02)
[2020-08-02] MEDS ORDERED: MELATONIN5 MG SUBLING (10:02)
[2020-08-02 10:51] LABS: URINE BILIRUBIN NEGATIVE (Negative); URINE BLOOD 1+ (Negative); URINE CLARITY CLEAR; URINE COLOR YELLOW; URINE GLUCOSE-RANDOM NEGATIVE (Negative); URINE KETONES NEGATIVE (Negative); URINE LEUKOCYTES-REFLEX TRACE (Negative); URINE NITRITE-REFLEX NEGATIVE (Negative); URINE PROTEIN NEGATIVE (Negative); URINE UROBILINOGEN 0.2 E.U./dl (0.2-1.0)
[2020-08-02 11:07] LABS: BACTERIA-REFLEX 1-9 Few /HPF (None Seen); CASTS None Seen /LPF (None Seen); CRYSTALS None Seen /LPF (None Seen); MUCUS None Seen strn/LPF (None Seen); SQUAMOUS 4-10 Moderate /LPF (0-3); URINE RBC 0-2 Rare /HPF (0-2); URINE WBC-REFLEX 0-5 Rare /HPF (0-5)
[2020-08-02 11:08] LABS: ABSOLUTE LYMPHOCYTES 1.1 thou/uL (0.8-5.3); ABSOLUTE MONOCYTES 0.6 thou/uL (0.0-1.2); ABSOLUTE NEUTROPHILS 1.7 thou/uL (1.6-8.1); BASOPHILS 0.7 %; EOSINOPHILS 0.6 %; HEMATOCRIT 29.8 % (37.0-47.0); HEMOGLOBIN 10.4 gm/dL (12.0-15.0); LYMPHOCYTES 32.5 %; MCH 32.1 pg (26.0-34.0); MCHC 34.8 g/dL (28.0-37.0); MCV 92.2 fL (80.0-100.0); MONOCYTES 17.5 %; MPV 6.8 fl. (7.2-11.1); NUCLEATED RBCS 0 /100WBC; PLATELET COUNT* 72 thou/uL (150-400); POLYS 48.7 %; RBC 3.23 mil/uL (4.20-5.00); RDW-CV 13.9 % (10.5-14.5); WBC 3.5 thou/uL (4.0-11.0)
[2020-08-02 11:16] LABS: CALCIUM 7.9 mg/dL (8.5-10.1); CREATININE 1.4 mg/dL (0.6-1.3); POTASSIUM 4.2 mmol/L (3.5-5.1)
[2020-08-02 11:21] LABS: ALBUMIN 3.2 g/dL (3.4-5.0); TOTAL BILIRUBIN 0.5 mg/dL (<0.1-1.0); TOTAL PROTEIN 6.7 g/dL (6.4-8.2)
[2020-08-02] MEDS ORDERED: KEFLEX500 M1 PO (14:55)
[2020-08-02 15:07] VITALS: BP 109/57
== END 2020-08-02 15:08 | disposition home or self-care (01) ==
LOC: M.ERS 09:28
PROVIDERS: Emergency Medicine Emergency Medical Services
DX: U07.1 COVID-19 (principal); Z20.828 Contact with and (suspected) exposure to other viral communicable diseases; M19.90 Unspecified osteoarthritis, unspecified site; I50.9 Heart failure, unspecified; Z79.899 Other long term (current) drug therapy; Z88.2 Allergy status to sulfonamides; Z88.8 Allergy status to other drugs, medicaments and biological substances; Z90.49 Acquired absence of other specified parts of digestive tract; Z90.710 Acquired absence of both cervix and uterus

== ENCOUNTER → 2021-08-13 | Outpatient (CLI) | payer MEDICARE, OTHER ==
[~2021-08-13] MED LIST changes: +B-COMPLEX-VITA1 EACH PO; +IRON PO; +VITAMIN B 6
== END ==
LOC: M.CT 12:38
PROVIDERS: ATTEND Nurse Practitioner Family
DX: J98.4 Other disorders of lung (principal); I25.10 Atherosclerotic heart disease of native coronary artery without angina pectoris; I34.8 Other nonrheumatic mitral valve disorders; I70.0 Atherosclerosis of aorta; R91.8 Other nonspecific abnormal finding of lung field; R16.1 Splenomegaly, not elsewhere classified; M47.814 Spondylosis without myelopathy or radiculopathy, thoracic region